=== PATIENT | female | born 1935 | race Caucasian/White ===

== ENCOUNTER 2019-08-10 08:00 | Outpatient (CLI) | payer MEDICARE, OTHER, SELFPAY | END 2019-08-10 08:01 | disposition home or self-care (01) | PROVIDERS: Family Provider Family Medicine; PCP Family Medicine; Visit Provider Internal Medicine Cardiovascular Disease | DX: Z01.818 Encounter for other preprocedural examination (principal) | CPT/HCPCS: 93005 ==

== ENCOUNTER 2019-08-22 16:48 | Observation (INO) | payer MEDICARE, OTHER, SELFPAY ==
[2019-08-10 14:34] VITALS: BMI 34.2
--- NOTE | 2019-08-10 14:34 | ECG_ITS ---
Measurements Intervals [place] Rate: 75 P: 70 FL: 177 QRS: 66 QRSD: 95 T: 94 QT: 390 QTc: 436 SINUS RHYTHM LOW QRS VOLTAGE IN PRECORDIAL LEADS [QRS DEFLECTION < 1.0 mV IN CHEST LEADS] Compared to ECG 04/26/2019 12:46:18 Myocardial infarct finding no longer present Electronically Signed On 08-11-2019 15:35:49 MASTER SONAR TECHNICIAN by Eddie Carballo M.D. [id number]
--- NOTE | 2019-08-10 15:18 | ANES.PREANES ---
Pre-Anesthetic Assessment Pre-Anesthetic Assessment: Height/Weight: Height 1.73 m Weight 102.058 kg Preop Diagnosis: Left TKA Proposed Procedure: Operation Date: 08/21/19 07:00 Proposed Procedures p Total Knee Arthroplasty 26398 M17.0(Left) - Tim Jama MD Exam: Pre-Anes Outpt Exam: alert and oriented x 3 Airway: Dentition: False Additional comments: bottom partials top multipe caps/crowns CV/HEM: CV/HEM: Afib and HTN Comments: rx'd 18months stress test 08/06 negative < 2 blocks secondary knee Anesthetic Plan: ASA status: III Anesthesia: General and Regional (specify below) Other: left adductor knee Data Anesthesia Cardiac Studies: No Data to Display
[2019-08-21] VITALS (22 sets, daily range): BP systolic 121–162; BP diastolic 69–120; PULSE 70–92; RESP 15–20; TEMP 36.1–37.1; O2SAT 94–100
[2019-08-21] MEDS: sodium chloride 0.9% 1,000 ML 30 ML IV (05:56)
[2019-08-21] MEDS: midazolam 1 mg/mL INJ 5 ML 5 MG (06:50)
[2019-08-21] MEDS: fentaNYL 50 mcg/mL INJ 2mL 100 MCG IVP (06:51)
--- NOTE | 2019-08-21 06:54 | PM.HP ---
Providers/Chief Complaint Primary Care Provider: Zenaida Spencer DO Chief Complaint: Primary Osteoarthritis of bilateral knee History of Present Illness Daily Barreto is a 84 year old female with a history of osteoarthritis of both knees. She did well after right total knee arthroplasty and is now here for elective left total knee arthroplasty. 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 She describes holding objects as she walks about the kitchen for balance. She has failed injections and medications. She describes the pain is severe and limiting daily activities. She is here for elective left total knee arthroplasty Review of Systems General: Reports: 10 or more systems reviewed and unremarkable except in HPI and below Medications/Allergies Home Medications Medication Instructions Recorded Confirmed Last Taken Type apixaban 5 mg PO BID 08/10/19 08/21/19 08/15/19 History calcium citrate-vitamin D3 1 tab PO TID 08/10/19 08/21/19 1 Day Ago History [Calcium Citrate + D] ~08/20/19 cinnamon bark [Cinnamon] 500 mg PO DAILY 08/10/19 08/21/19 08/20/19 History lisinopril 5 mg PO DAILY 08/10/19 08/21/19 08/21/19 02:00 History metoprolol succinate 25 mg PO DAILY 08/10/19 08/21/19 08/21/19 02:00 History Allergies Allergy/AdvReac Type Severity Reaction Status Date / Time No Known Allergies Allergy Verified 08/10/19 14:10 PFSH Acute PFSH: Statuses (acute, chronic, etc) shown below reflect problem list status as previously entered and may not be historically accurate Surgical History (Updated 08/21/19 @ 06:58 by Tim Jama MD) History of right knee joint replacement (Acute) Vitals/I&O/Wt Last Vital Signs Temp 97.4 F L 08/21/19 05:54 Pulse 84 08/21/19 05:54 Resp 18 08/21/19 05:54 BP 136/83 08/21/19 05:54 Pulse Ox 98 08/21/19 05:54 Physical Exam Narrative: EXAM NARRATIVE: HEAD: Normocephalic/atraumatic. NECK: Soft supple nontender. HEART: Normal heart sounds, regular rhythm. CHEST: Clear to auscultation. ABDOMEN: Soft nontender nondistended. On examination of the patient's left knee her motion is from full extension to 100 degrees. She has crepitance beneath the patella. Her cruciate collateral ligaments are stable. She is a palpable dorsalis pedis pulse. She will flex and sent her toes and her ankle. Her sensation is intact light touch. Data Xray Ortho: Radiologist's impression: Previous radiographs of the left knee are reviewed revealing severe end-stage osteoarthritis left knee A&P Assessment and plan (1) Osteoarthritis of left knee: Patient has been previously counseled and agrees to proceed with left total knee arthroplasty. She will be given TXA intraoperatively and preoperatively. She will be managed with aspirin for DVT prophylaxis. She will be admitted outpatient status and anticipate discharge home tomorrow or the following day. Status: Acute Code(s): M17.12 - Unilateral primary osteoarthritis, left knee Attestations Medical Necessity Statement*: The patient will be admitted observation status with discharge tomorrow unless further stay medically necessary Coding Level of Care Code Acute Marble Installation Helper for Zohra Hillman Diagnoses Osteoarthritis of left knee M17.12
--- NOTE | 2019-08-21 07:37 | ANES.PROC ---
Anesthesia Procedures Procedure/Date: 08/21/19 Procedure Narrative: R&B's of left adductor canal block disc'd. Verbal and written consent obtained. Versed 2+1mg, Fentanyl 50ug. US utilized to identify left adductor canal space, ARTHUR.
[2019-08-21] MEDS: ketorolac 30 mg/mL INJ XX (08:05)
[2019-08-21] MEDS: EPINEPHrine 1 mg/mL INJ XX (08:05)
[2019-08-21] MEDS: tranexamic acid 1,000 mg/10mL SDV 2000 MG IRRIGATION (08:08)
--- NOTE | 2019-08-21 08:21 | SUR.OPER ---
[id number] - Pt's family - Marcela - notified of surgery start via her cell phone [id number] - Marcela updated on surgery progress and pt status via her cell phone.
--- NOTE | 2019-08-21 08:41 | XR_ITS ---
WS: [id number] KNEE LEFT TECHNIQUE: 2 views of the left knee CLINICAL INFORMATION: postop L tka COMPARISON: June 20, 2019 FINDINGS: Postoperative changes left TKA. Patellar prosthesis. Surgical sutures. Soft tissue edema. Normal for postoperative purposes. XR/XR knee LT 1-2V [id number] IMPRESSION: Unremarkable for postoperative purposes.
--- NOTE | 2019-08-21 08:42 | P.OP_ITS ---
Operative Report Date of procedure: August 21, 2019 Pre-op Diagnosis: osteoarthritis Post-op diagnosis: same Implants: [place] total knee arthroplasty components were used includin) Size 4 triathalon cruciate retaining femoral component 2) Size 5 Tritanium tibial component 3) 35 mm Tritanium asymetric patella 4) Size 5/11 mm thickness CR tibial bearing insert Pathology: none sent Surgeon: Tim Jama Anesthesia: General and Nerve Block (adductor canal block) Estimated blood loss (mL): 50 Tourniquet time (min): 34 Complications: None Findings: Patient had eburnated exposed subchondral bone over the medial femoral condyle, medial tibial plateau, patella and troches Condition: stable Disposition: PACU Brief History: See history and physical Procedure: The patient was taken to the operating room. Patient was given 1 g of tranexamic acid . The above anesthesia provided by the anesthesia service. A timeout was performed. The patient was prepped and draped in the usual fashion with the lower extremity exposed. A anterior incision was made, midline, from a point proximal to the patella to the distal tibial tubercle. Dissection was accomplished through the subcutaneous fat to the extensor mechanism. The vastus medialis oblique is musculature was elevated with a retractor and a capsular incision made from the medial patella along the patellar tendon up into the superior capsule. The patella could be displaced laterally and the knee flexed. The patellar fat pad was resected to provide better visibility. Retractors were placed medially and laterally adjacent to the tibial plateau. The femoral canal was drilled in line with the longitudinal axis of the femur. Intramedullary femoral guide for used to make a distal femoral cut in 5 degrees of valgus, resecting 8 mm from the more prominent condyle. Next the extra medullary tibial guide was placed in alignment with the longitudinal axis of the tibia. The cutting guides were set to remove just over 9 mm from the high tibial plateau. The proximal tibia was then cut. The femoral measuring guide was then placed over the distal femur. Rotation was verified checking the relationship of the guide to the condyle and the trochlear groove. The femur was measured and cut for the desired femoral component. The desired tibial baseplate was then chosen. A trial reduction with the femur tibial baseplate and polyethylene was done, assuring that the knee was stable throughout full motion. Ligament balancing involved release only of the deep medial collateral ligament.The tibia was prepared for the tibial baseplate. Patellar thickness was then measured. The patella was cut removing articular cartilage and prepared for appropriate size patellar button. All surfaces were cleaned with pulsatile lavage. The femur tibia and patella were then press-fit into place. The posterior capsule and collateral ligaments were then injected with a solution of 100 mL of 0.2% ropivacaine, 1 mL of a 1:1000 epinephrine solution, and 30 mg of Toradol. Final polyethylene component was then snapped into place into the tibia. 2 grams of tranexamic acid were applied to the wound. The tourniquet was deflated. The tranxanemic acid was left contact with the knee for 5 minutes before the knee was irrigated with saline. The extensor retinaculum was closed with 1 Ethibond. The subcutaneous tissues were closed with 2-0 Vicryl and the skin was closed with skin param. A compressive dressing was applied. The patient was taken to recovery room in stable condition.
--- NOTE | 2019-08-21 08:49 | SUR.PHASEI ---
0852 PATIENT TO PACU AT THIS TIME FROM OR VIA [facility]. RR EVEN AND UNLABORED. PLACED ON SIMPLE MASK AT 8L, SPO2 100%. DRESSING TO LEFT KNEE, CDI. PULSE PRESENT AND MARKED. CAP REFILL INTACT. PATIENT RESPONDS TO VERBAL STIMULI.
--- NOTE | 2019-08-21 08:50 | SUR.PHASEI ---
[address] XRAY PRESENT.
[2019-08-21] MEDS: fentaNYL 50 mcg/mL INJ 2mL IVP (09:10)
--- NOTE | 2019-08-21 09:41 | SUR.PHASEI ---
0928 PATIENT TO MED SURG, 269. A/OX3. RR EVEN AND UNLABORED. PWD. DRESSING INTACT TO LEFT KNEE, CDI. PULSE PRESENT, FIRST ICE IN PLACE.
[2019-08-21] MEDS: sennosides-docusate Tablet 2 TAB PO ×2 (10:44→18:26)
[2019-08-21] MEDS: cholecalciferol (vitamin D3) 1,000 unit Tablet 1000 UNIT PO (10:44)
[2019-08-21] MEDS: aspirin 325 mg EC Tablet PO (10:44)
[2019-08-21] MEDS: oxyCODONE 5 mg IR Tab/Cap PO (10:45)
[2019-08-21] MEDS: multivitamin therapeutic Tablet 1 TAB PO (10:45)
[2019-08-21] MEDS: calcium carbonate 500 mg Chew Tablet 1000 MG PO ×2 (10:46→18:26)
[2019-08-21] MEDS: chlorhexidine gluconate 0.12% Btl 473 mL 30 ML MUCOUS MEM ×4 (10:46→22:19)
--- NOTE | 2019-08-21 10:49 | PC.NURSE ---
Lisinopril and metoprolol held at this time. Pt reports taking both before surgery this morning per dr order.
[2019-08-21 11:04] LABS: Glucose Point of Care 236 mg/dL (70-110)
[2019-08-21] MEDS: CELEcoxib 200 mg Capsule PO (12:35)
--- NOTE | 2019-08-21 12:55 | PC.CHAP ---
Pastoral Care Encounter/Spiritual Assessment Type of Contact [] Declined insurance solicitor visit [] Patient/Family/Request visit [] Outpatient visit [] Follow-up visit [] Physician referral [] Code/Alert [x] Routine visit [] Staff referral [] Actively dying [] Patient sleeping [] Family support [] [] Out of room [] Palliative care [] [] Receiving care in room [] Pre-surgical visit [] Trauma [] Long length of stay [] ICU visit [] Other: Relational/Emotional Strength [x] Patient feels connected with others/family/visitors/staff [] Distress [] Loneliness/isolation [] Abandonment Spirituality of Patient [x] Person of Cyndi [] Attends Mormon of their Cyndi [x] Believes in Prayer [x] Reads Bible or Adventist materials [] There are Spiritual issues to be addressed Ceramic Chemist Interventions [x] Prayer [x] Active listening [x] Non-anxious presence [x] Spiritual/emotional support [] Crisis/trauma care [] Spiritual counseling [] Bereavement support [] Provided bereavement packet [] Provided Bible/devotional materials [] Provided toy/stuffed animal, coloring book to patient or family member [] Provided Communion [] Anointing/[place] [] Salvation [x] Completed spiritual assessment [] Other: Impact on Illness or Injury [] Angry [] Fearful [] Anxious [] Often cries [] Exhaustion [] Unable to work [] Unable to attend voodoo [] Unable to walk/stand [] Unable to read [] Unable to drive [] Unable to eat/drink [] Unable to sleep [] Unable to be with family [] Patient intubated [x] Other: Pt is senior adult who is no longer physically active Summary Pt recovering from knee surgery conducted this morning. This 2nd knee surgery hurts much worse that the 1st knee surgery done in May 2019 on other knee. Daughter is present to help in whatever way pt needs. Ceramic Chemist Daily Parrish Time spent with patient 20 minutes
[2019-08-21] MEDS: iron polysaccharide complex 150 mg Capsule PO (18:25)
[2019-08-22] MEDS: CELEcoxib 200 mg Capsule PO ×2 (02:02→13:19)
[2019-08-22 05:00] VITALS: BP 123/72; PULSE 97; RESP 17; TEMP 36.8; O2SAT 90
[2019-08-22 05:17] LABS: Basophils % 0.4 %; Eosinophils # 0.1 10^3/uL (0.0-0.8); Eosinophils % 1.2 %; Hematocrit 37.3 % (37.0-47.0); Hemoglobin 12.1 g/dL (11.5-15.3); Lymphocytes # 1.2 10^3/uL (0.8-4.8); Lymphocytes % 16.4 %; Mean Corpuscular HGB Conc 32.4 g/dL (30.0-36.0); Mean Corpuscular Hemoglobin 28.7 pg (28.0-34.0); Mean Corpuscular Volume 88.6 fL (81-99); Mean Platelet Volume 9.7 fL (7.4-10.4); Monocytes # 0.7 10^3/uL (0.2-0.9); Monocytes % 9.5 %; Neutrophils # 5.4 10^3/uL (1.8-7.7); Nucleated Red Blood Cells % 0 %; Platelet Count 207 10^3/cmm (130-400); Red Blood Count 4.21 10^6/uL (4.1-5.3); Red Cell Distribution Width 13.7 % (12.1-15.1); White Blood Count 7.5 10^3/uL (4.0-10.0)
[2019-08-22 05:34] LABS: Anion Gap 18.5 (5-19); Blood Urea Nitrogen 20 mg/dL (8-23); Calcium 9.6 mg/dL (8.5-10.5); Carbon Dioxide 20 mmol/L (22-29); Chloride 102 mmol/L (98-107); Glucose 215 mg/dL (74-106); Osmolality Calculated 285 mOsm/kg (285-295); Potassium 4.5 mmol/L (3.5-5.1); Sodium 136 mmol/L (136-145)
[2019-08-22 07:54] VITALS: BP 136/76; PULSE 101; RESP 16; TEMP 37.7; O2SAT 93
[2019-08-22] MEDS: iron polysaccharide complex 150 mg Capsule PO (08:40)
[2019-08-22] MEDS: metoprolol succinate ER (24 HR) 25 mg Tablet PO (08:40)
[2019-08-22] MEDS: calcium carbonate 500 mg Chew Tablet 1000 MG PO (08:40)
[2019-08-22] MEDS: multivitamin therapeutic Tablet 1 TAB PO (08:40)
[2019-08-22 08:41] VITALS: RESP 18
[2019-08-22] MEDS: aspirin 325 mg EC Tablet PO (08:41)
[2019-08-22] MEDS: oxyCODONE 5 mg IR Tab/Cap PO ×3 (08:41→17:07)
[2019-08-22] MEDS: sennosides-docusate Tablet 2 TAB PO (08:41)
[2019-08-22] MEDS: lisinopril 5 mg Tablet PO (08:41)
[2019-08-22] MEDS: cholecalciferol (vitamin D3) 1,000 unit Tablet 1000 UNIT PO (08:41)
--- NOTE | 2019-08-22 09:33 | P.DS_ITS ---
Discharge Providers Date of Admission: 08/21/19 08:57 Date of Discharge: Date of Discharge: August 22, 2019 Attending Provider at Admission: Tim Jama MD Attending Provider at Discharge: Tim Jama MD Primary Care Provider: Zenaida Spencer DO Diagnoses at Discharge Discharge Diagnosis (1) Osteoarthritis of left knee: Status: Resolved (2) Status post knee replacement: Status: Acute Reason for Visit Reason for Visit: Reason For Visit: Primary Osteoarthritis of bilateral knee Hospital Course Hospital Course: Patient underwent elective left total knee arthroplasty on 08/21/2019. She tolerated the procedure well. She remained hemodynamically stable. She was begun on aspirin and maintained on foot pumps for DVT prophylaxis. She made excellent progress with therapy. By the first postoperative day her pain was tolerable with oxycodone. she did well with therapy and was thought stable for discharge on 08/22/2019.. Physical Exam Narrative: EXAM NARRATIVE: On the day of discharge, 08/22/2019 her dressing was clean and her thigh and calf were soft. Urinary Catheter Management^: Carranza: Cath Placed During This Visit: no Discharge Data Data Completed and Pending: Completed Studies During Hospitalization Category Date Time Status XR knee LT 1-2V 7 3560 Routine Exams 08/21/19 08:41 Completed Pending at discharge Category Date Time Status Complete Blood Co unt w/Auto AM LABS Lab 08/23/19 04:00 Ordered Complete Blood Co unt w/Auto AM LABS Lab 08/24/19 04:00 Ordered Labs from last 24 hours 08/22/19 08/22/19 08/21/19 04:10 04:10 11:00 WBC 7.5 RBC 4.21 Hgb 12.1 Hct 37.3 MCV 88.6 MCH 28.7 MCHC 32.4 RDW 13.7 Plt Count 207 MPV 9.7 Neut % (Auto) 72.0 Lymph % (Auto) 16.4 [place] % (Auto) 9.5 Eos % (Auto) 1.2 Baso % (Auto) 0.4 Neut # (Auto) 5.4 Lymph # (Auto) 1.2 [place] # (Auto) 0.7 Eos # (Auto) 0.1 Baso # (Auto) 0.0 Nucleated RBC % (a uto) 0 Nucleated RBCs # 0.0 Sodium 136 Potassium 4.5 Chloride 102 Carbon Dioxide 20 L Anion Gap 18.5 BUN 20 Creatinine 1.0 H Glucose 215 H POC Glucose 236 Calculated Osmolal ity 285 Calcium 9.6 Vitals: Last Vital Signs Temp 99.8 F H 08/22/19 07:54 Pulse 101 H 08/22/19 07:54 Resp 18 08/22/19 08:41 BP 136/76 08/22/19 07:54 Pulse Ox 93 08/22/19 07:54 Discharge Plan Discharge Patient Disposition: Home, Self-Care Condition: Stable Prescriptions: New oxycodone 5 mg Tablet 5 mg PO Q4H PRN (Reason: Moderate Pain) Qty: 40 RF: 0 celecoxib 200 mg Capsule 200 mg PO Q12H Qty: 30 RF: 0 aspirin 325 mg Tablet,Delayed Release (Dr/Ec) 325 mg PO DAILY Qty: 30 RF: 0 Held apixaban 5 mg Tablet 5 mg PO BID RF: 0 Hold Instructions: Resume on 09/04/19. No Action mupirocin 2 % ointment 1 applic TOPICAL BID Qty: 30 RF: 0 lisinopril 5 mg Tablet 5 mg PO DAILY RF: 0 calcium citrate-vitamin D3 [Calcium Citrate + D] 315-200 mg-unit Tablet 1 tab PO TID RF: 0 cinnamon bark [Cinnamon] 500 mg Capsule 500 mg PO DAILY RF: 0 metoprolol succinate 25 mg Capsule,Sprinkle,Er 24hr 25 mg PO DAILY RF: 0 Discharge Orders: Discharge Order (Routine); Ordered 08/22/19 Ordered By: Tim Jama Referrals: Tim Jama MD [Physician] - 09/04/19 1:30 pm Discharge Diet: Advance as tolerated Discharge Activity: Use walker/crutches as instructed Activity Restrictions/Additional Instructions: Remove dressing on second postoperative day and replace with dressing provided. May shower once incisions completely free of drainage. Replaced dressings as needed for drainage.. Take Celebrex twice a day for the next 15 days, discontinue other anti- inflammatories Take oxycodone for breakthrough pain. Exercises per physical therapy. Ice and elevate knees as needed for pain and swelling.. Discharge Attestations Time Spent in Discharge Care*: other Quality Metrics Clinical Quality Measures During this hospital stay, did patient experience: None Coding Level of Care Code Acute Layout Artist for Zohra Hillman Diagnoses Osteoarthritis of left knee M17.12 Status post knee replacement Z96.659
--- NOTE | 2019-08-22 10:11 | ANE.PACU2 ---
 Inpatient post-anesthesia follow up: Airway intact: Yes Vital signs: Temperature 99.8 F Pulse Rate 101 Respiratory Rate 18 Blood Pressure 136/76 Pulse Oximetry 93 Oxygen Delivery Me thod Room Air Oxygen Flow Rate 3 Fraction of Inspir ed Oxygen Hydration adequate: Yes Nausea and vomiting: No Pain level: 10 Mental status: Baseline Additional Comments: Nerve block worked well per patient, unfortunately has worn off now
[2019-08-22 11:46] VITALS: BP 135/74; PULSE 85; RESP 16; TEMP 36.8; O2SAT 93
[2019-08-22 13:18] VITALS: RESP 18
[2019-08-22] MEDS: chlorhexidine gluconate 0.12% Btl 473 mL 30 ML MUCOUS MEM (13:18)
[2019-08-22 17:07] VITALS: RESP 18
== END 2019-08-22 19:00 | disposition home health service (06) ==
LOC: OPMS 08-23 08:08
PROVIDERS: Admitting Provider Orthopaedic Surgery; Family Provider Family Medicine; PCP Family Medicine; Visit Provider Orthopaedic Surgery
PROC: (CPT 27447; principal; 2019-08-21 07:00)
DX: M17.12 Unilateral primary osteoarthritis, left knee (principal); Z96.651 Presence of right artificial knee joint; I48.91 Unspecified atrial fibrillation; I10 Essential (primary) hypertension
CPT/HCPCS: 27447; 12345; 36416; 51702; 73560; 80048; 82962; 85025; 93005; 96365; 96374; 96375; 97110; 97116; 97161; 97165; 97535; C1776; G0378; J0171; J0690; J1580; J1885; J2001; J2250; J2405; J2704; J2710; J2795; J3010; J3490; J7030

== ENCOUNTER → 2019-10-02 14:57 | Outpatient (BNVA) | payer MEDICARE, OTHER, SELFPAY | PROVIDERS: Family Provider Family Medicine; PCP Family Medicine; Visit Provider Orthopaedic Surgery | DX: Z96.652 Presence of left artificial knee joint (principal) | CPT/HCPCS: 73560; 73565 ==

== ENCOUNTER 2020-05-23 15:27 | Inpatient (IN) | payer MEDICARE, OTHER, SELFPAY ==
[2020-05-23] VITALS (11 sets, daily range): BP systolic 100–115; BP diastolic 68–93; PULSE 52–129; RESP 18–26; TEMP 36.7–37.1; O2SAT 91–96; BMI 35.1
--- NOTE | 2020-05-23 15:39 | XR_ITS ---
WS: [id number] XR chest 1V portable [id number] REASON FOR EXAM: SOB FINDINGS: The chest is unchanged compared to 04/26/2019. There is mild cardiomegaly and mild to moderate tortuosity of the thoracic aorta. No active pulmonary parenchymal or pleural disease is identified. Mild changes of degenerative spondylosis in the mid and lower thoracic spine. XR/XR chest 1V portable [id number] IMPRESSION: No acute chest abnormality identified.
--- NOTE | 2020-05-23 15:39 | ECG_ITS ---
[facility] Test Date: 2020-05-23 Pat Name: Daily Barreto Department: Room: Gender: Female Non Morse Intercept Technician: : 1935 Requested By: Lynne Monroe Order Number: [id number] Reading MD: HARINDER DANIELS Measurements Intervals [place] Rate: 130 P: AR: -1 QRS: 48 QRSD: 88 T: 85 QT: 308 QTc: 454 Interpretive Statements ATRIAL FIBRILLATION WITH RAPID VENTRICULAR RESPONSE WITH ABERRANT CONDUCTION OR VENTRICULAR PREMATURE COMPLEXES ANTEROSEPTAL MYOCARDIAL INFARCTION , OF INDETERMINATE AGE [40+ ms Q WAVE IN V1-V4] Compared to ECG 08/10/2019 15:32:49 Ventricular premature complex(es) now present Aberrant conduction of supraventricular beat(s) now present Myocardial infarct finding now present Sinus rhythm no longer present Electronically Signed On 05-24-2020 19:29:39 DINING SERVICES MANAGER by HARINDER DANIELS [id number]
[2020-05-23 16:13] LABS: Basophils % 0.4 %; Eosinophils # 0.2 10^3/uL (0.0-0.8); Hematocrit 42.8 % (37.0-47.0); Hemoglobin 13.8 g/dL (11.5-15.3); Lymphocytes # 2.4 10^3/uL (0.8-4.8); Lymphocytes % 24.7 %; Mean Corpuscular HGB Conc 32.2 g/dL (30.0-36.0); Mean Corpuscular Hemoglobin 28.6 pg (28.0-34.0); Mean Corpuscular Volume 88.6 fL (81-99); Mean Platelet Volume 9.1 fL (7.4-10.4); Monocytes # 0.6 10^3/uL (0.2-0.9); Monocytes % 6.3 %; Neutrophils # 6.37 10^3/uL (1.8-7.7); Neutrophils % 65.5 %; Nucleated Red Blood Cells % 0 %; Platelet Count 350 10^3/cmm (130-400); Red Blood Count 4.83 10^6/uL (4.1-5.3); Red Cell Distribution Width 13.3 % (12.1-15.1); White Blood Count 9.7 10^3/uL (4.0-10.0)
--- NOTE | 2020-05-23 16:22 | ED_ITS ---
Documented by User: Lynne Rivas MD 06/02/20 17:08 HPI - SOB/Dyspnea General: Chief Complaint: Shortness of Breath/Dyspnea Stated Complaint: SOB Time Seen by Provider: 05/23/20 15:31 History of Present Illness: HPI Narrative: This patient is an 85-year-old female who presents today with shortness of breath and difficulty walking. Her daughter says that this started on Wednesday. [place] early in the morning and the patient was so dizzy and weak that she was unable to stand. Her daughter took her to Dr. Spencer office where they brought her in and checked her pulse ox. It was in the 70s. They sent her to the ER at [facility] in [place]. There her oxygen saturation was in the 90s at rest. She had testing done including a Covid test that was negative. They said they thought her problem was cardiopulmonary and that she had a cardiomyopathy. She did not have A. fib at the time according to her daughter. Apparently she had had A. fib in the past but not consistently. The patient normally is very active. She had her knees replaced earlier this year but since then she has been up and walking without difficulty. Her daughter notes that she is really unable to get up and ambulate at all right now. Part of that is shortness of breath and part of it is weakness in her legs. She denies chest pain. She does not feel like her heart is racing although it is on the monitor. She has not had fever or cough. No vomiting or diarrhea. MD elicited complaint: shortness of breath Pertinent past history: other (Paroxysmal A. fib in the past) Onset (ago): day(s) (3) Timing: constant Severity: severe Exacerbating factors: exertion, movement and talking Relieving factors: oxygen and rest Associated symptoms: Reports dizziness and lightheadedness; Deny abdominal pain, fever(s), nausea or vomiting Review of Systems General: Reports: 10 or more systems reviewed and unremarkable except in HPI and below Const: Denies: fever(s), chills, fatigue or malaise Eyes: Denies: change in vision ENMT: Denies: odynophagia Card: Reports: lightheadedness Resp: Reports: dyspnea; Denies: productive cough or non-productive cough GI: Denies: abdominal pain, nausea or vomiting : Denies: flank pain or difficulty voiding Musc: Denies: neck pain or back pain Skin/Breast: Denies: rash Neuro: Reports: difficulty walking and dizziness Jet/Lymph: Denies: easy bruising or easy bleeding [facility] ED PFSH: Medical History (Updated 05/31/20 @ 00:00 by ) Atrial fibrillation with RVR Atrial flutter with rapid ventricular response -continue digoxin, metoprolol, amiodarone -f/u with cardiology in 3-4 weeks -on AC with Eliquis CHF (congestive heart failure) -clinically euvolemic -Echo: EF=55%, no RWMA, mild MR, trace to mild TR CVA (cerebral vascular accident) 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 Generalized weakness -secondary to infection and CVA -has been improving with therapy High blood pressure History of atrial fibrillation History of vaginal delivery Hx of non-insulin dependent diabetes mellitus -A1c-7.8 -d/c on metformin Hx of urinary tract infection NSTEMI (non-ST elevated myocardial infarction) Surgical History H/O total knee replacement History of right knee joint replacement Hx of cholecystectomy Family History Mother Diabetes Father CHF (congestive heart failure) Social History Smoking and tobacco status: never smoked Alcohol intake: never Physical Exam Const: COMMON NORMALS: no acute distress, patient oriented x3, no limitations and alert GENERAL APPEARANCE: cooperative and comfortable ORIENTATION/CO NSCIOUSNESS: Yes oriented to person, Yes oriented to place and Yes oriented to time HENMT: HEAD & SCALP: normal to inspection FACE & SINUS: normal facial exam Eye: GENERAL EYE: appearance normal, both eyes and all related structures Neck/C-Spine: COMMON NORMALS: supple, no meningeal signs and no JVD Chest: COMMONS NORMALS: normal inspection of the chest Resp: COMMON NORMALS: normal respiratory effort, No use of accessory muscles and clear to auscultation bilaterally AUSCULTATION: clear to auscultation bilaterally Cardio: COMMON NORMALS: no JVD, regular rate, regular rhythm and No murmurs present (Cardio) RATE: regular rate RHYTHM: regular rhythm GI: COMMON NORMALS: Normal to inspection, nondistended, normoactive bowel sounds present, Soft to palpation and non-tender INSPECTION: Yes normal to inspection AUSCULTATION: Yes normoactive bowel sounds PALPATION: Yes Soft to palpation Back/Pelvis: COMMON NORMALS: thoracic and lumbar spine normal to inspection Extremity: COMMON NORMALS: normal to inspection Neuro: COMMON NORMALS: patient oriented x3, moves all extremities, no focal motor deficits and no sensory deficits noted SENSORIUM/ORIENTATION: Yes alert, Yes oriented to person, Yes oriented to place and Yes oriented to time MENINGEAL SIGNS: Yes no meningeal signs CRANIAL NERVES: Yes CN normal except as noted GAIT: Yes Shuffling gait present (Assisted getting the patient from the wheelchair to the bed and she was able to take only 1 or 2 very halting and slow steps.) Psych: COMMON NORMALS: mental status grossly normal, cooperative and normal affect Skin: COMMON NORMALS: no rashes or lesions noted and turgor normal GENERAL SKIN EXAM: no rashes or lesions noted and turgor normal Course Vital Signs: Vital signs: Vital Signs Temperature 98.1 F 05/30/20 12:42 Pulse Rate 111 H 05/30/20 12:42 Respiratory Rate 16 05/30/20 12:42 Blood Pressure 114/77 05/30/20 12:42 Pulse Oximetry 91 05/30/20 12:42 MDM - SOB/Dyspnea Lab Data: Labs: Lab Results 05/23/20 05/23/20 05/23/20 Range/Units 16:05 16:05 16:05 WBC 9.7 (4.0-10.0) 10^3/ uL RBC 4.83 (4.1-5.3) 10^6/u L Hgb 13.8 (11.5-15.3) g/dL Hct 42.8 (37.0-47.0) % MCV 88.6 (81-99) fL MCH 28.6 (28.0-34.0) pg MCHC 32.2 (30.0-36.0) g/dL RDW 13.3 (12.1-15.1) % Plt Count 350 (130-400) 10^3/c mm MPV 9.1 (7.4-10.4) fL Neut % (Auto) 65.5 % Lymph % (Auto) 24.7 % [place] % (Auto) 6.3 % Eos % (Auto) 2.0 % Baso % (Auto) 0.4 % Neut # (Auto) 6.37 (1.8-7.7) 10^3/u L Lymph # (Auto) 2.4 (0.8-4.8) 10^3/u L [place] # (Auto) 0.6 (0.2-0.9) 10^3/u L Eos # (Auto) 0.2 (0.0-0.8) 10^3/u L Baso # (Auto) 0.0 (0.0-0.1) 10^3/u L Nucleated RBC % (a uto) 0 % Nucleated RBCs # 0.0 /100WBC Sodium 135 L (136-145) mmol/L Potassium 4.0 (3.5-5.1) mmol/L Chloride 98 (98-107) mmol/L Carbon Dioxide 23 (22-29) mmol/L Anion Gap 18.0 (5-19) BUN 20 (8-23) mg/dL Creatinine 1.1 H (0.5-0.9) mg/dL GFR Calculation Not Reportable Glucose 288 H (65-115) mg/dL Calculated Osmolal ity 293 (285-295) mOsm/k g Lactic Acid 2.9 H (0.5-2.2) mmol/L Calcium 9.3 (8.5-10.5) mg/dL Magnesium 1.8 (1.7-2.3) mg/dL Total Bilirubin 0.2 (0.15-1.2) mg/dL AST 16 (0-32) U/L ALT 14 (0-33) U/L Alkaline Phosphata se 89 (35-105) IU/L Troponin T Baselin e (0-10) ng/L NT-Pro-B Natriuret Pep 3320 H (0-450) pg/mL Total Protein 6.6 (6.6-8.7) g/dL Albumin 3.6 (3.5-5.2) g/dL Globulin 3.0 (1.3-4.6) g/dL Procalcitonin 0.12 (0-0.5) ng/mL 05/23/ Range/Units 16:05 WBC (4.0-10.0) 10^3/ uL RBC (4.1-5.3) 10^6/u L Hgb (11.5-15.3) g/dL Hct (37.0-47.0) % MCV (81-99) fL MCH (28.0-34.0) pg MCHC (30.0-36.0) g/dL RDW (12.1-15.1) % Plt Count (130-400) 10^3/c mm MPV (7.4-10.4) fL Neut % (Auto) % Lymph % (Auto) % [place] % (Auto) % Eos % (Auto) % Baso % (Auto) % Neut # (Auto) (1.8-7.7) 10^3/u L Lymph # (Auto) (0.8-4.8) 10^3/u L [place] # (Auto) (0.2-0.9) 10^3/u L Eos # (Auto) (0.0-0.8) 10^3/u L Baso # (Auto) (0.0-0.1) 10^3/u L Nucleated RBC % (a uto) % Nucleated RBCs # /100WBC Sodium (136-145) mmol/L Potassium (3.5-5.1) mmol/L Chloride (98-107) mmol/L Carbon Dioxide (22-29) mmol/L Anion Gap (5-19) BUN (8-23) mg/dL Creatinine (0.5-0.9) mg/dL GFR Calculation Glucose (65-115) mg/dL Calculated Osmolal ity (285-295) mOsm/k g Lactic Acid (0.5-2.2) mmol/L Calcium (8.5-10.5) mg/dL Magnesium (1.7-2.3) mg/dL Total Bilirubin (0.15-1.2) mg/dL AST (0-32) U/L ALT (0-33) U/L Alkaline Phosphata se (35-105) IU/L Troponin T Baselin e 27 H (0-10) ng/L NT-Pro-B Natriuret Pep (0-450) pg/mL Total Protein (6.6-8.7) g/dL Albumin (3.5-5.2) g/dL Globulin (1.3-4.6) g/dL Procalcitonin (0-0.5) ng/mL Discharge Plan Discharge Patient Disposition: Admitted As Inpatient Admit Provider: Sd Roblero Clinical Impression: Atrial fibrillation with RVR Condition: Stable Discharge Diet: Cardiac and Diabetic Discharge Activity: Increase activity as tolerated and As per PT/OT instructions Sign Out Sign Out Data: Patient Sign Out occurred on 05/23/20 at 18:25. Patient's care was discussed, and care was transferred from to Nicki Burrows. Coding Level of Care Code ED Transmitter Engineer for Chg Fwd Exam Comprehensive Documented by User: Nicki Burrows 05/23/20 19:25 HPI - SOB/Dyspnea General: Chief Complaint: Shortness of Breath/Dyspnea Stated Complaint: SOB Time Seen by Provider: 05/23/20 15:31 PFSH ED PFSH: Medical History (Updated 05/31/20 @ 00:00 by ) Atrial fibrillation with RVR Atrial flutter with rapid ventricular response -continue digoxin, metoprolol, amiodarone -f/u with cardiology in 3-4 weeks -on AC with Eliquis CHF (congestive heart failure) -clinically euvolemic -Echo: EF=55%, no RWMA, mild MR, trace to mild TR CVA (cerebral vascular accident) 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 Generalized weakness -secondary to infection and CVA -has been improving with therapy High blood pressure History of atrial fibrillation History of vaginal delivery Hx of non-insulin dependent diabetes mellitus -A1c-7.8 -d/c on metformin Hx of urinary tract infection NSTEMI (non-ST elevated myocardial infarction) Surgical History H/O total knee replacement History of right knee joint replacement Hx of cholecystectomy Family History Mother Diabetes Father CHF (congestive heart failure) Social History Smoking and tobacco status: never smoked Alcohol intake: never Course Vital Signs: Vital signs: Vital Signs Temperature 98.1 F 05/30/20 12:42 Pulse Rate 111 H 05/30/20 12:42 Respiratory Rate 16 05/30/20 12:42 Blood Pressure 114/77 05/30/20 12:42 Pulse Oximetry 91 05/30/20 12:42 MDM - SOB/Dyspnea MDM Narrative: Medical decision making narrative: 1921 -Case turned over to me at change of shift from Dr. Rivas. Please see her note for history, physical exam and medical decision-making notes. Patient is still in A. fib with RVR despite being on a Cardizem drip. She does not complain of chest pain or shortness of breath at this time. The patient still has generalized weakness and is unable to get up and walk. Patient's lactate is slightly elevated so I have added on a urine as there does not appear to be any evidence of pneumonia on her chest x-ray. Patient's had 2 - Covid test up to this point. Case was reviewed with Dr. Roblero he agrees admit to stepdown. Lab Data: Attestation: I reviewed the patient's lab results. Labs: Lab Results 05/23/20 05/23/20 05/23/20 Range/Units 16:05 16:05 16:05 WBC 9.7 (4.0-10.0) 10^3/ uL RBC 4.83 (4.1-5.3) 10^6/u L Hgb 13.8 (11.5-15.3) g/dL Hct 42.8 (37.0-47.0) % MCV 88.6 (81-99) fL MCH 28.6 (28.0-34.0) pg MCHC 32.2 (30.0-36.0) g/dL RDW 13.3 (12.1-15.1) % Plt Count 350 (130-400) 10^3/c mm MPV 9.1 (7.4-10.4) fL Neut % (Auto) 65.5 % Lymph % (Auto) 24.7 % [place] % (Auto) 6.3 % Eos % (Auto) 2.0 % Baso % (Auto) 0.4 % Neut # (Auto) 6.37 (1.8-7.7) 10^3/u L Lymph # (Auto) 2.4 (0.8-4.8) 10^3/u L [place] # (Auto) 0.6 (0.2-0.9) 10^3/u L Eos # (Auto) 0.2 (0.0-0.8) 10^3/u L Baso # (Auto) 0.0 (0.0-0.1) 10^3/u L Nucleated RBC % (a uto) 0 % Nucleated RBCs # 0.0 /100WBC Sodium 135 L (136-145) mmol/L Potassium 4.0 (3.5-5.1) mmol/L Chloride 98 (98-107) mmol/L Carbon Dioxide 23 (22-29) mmol/L Anion Gap 18.0 (5-19) BUN 20 (8-23) mg/dL Creatinine 1.1 H (0.5-0.9) mg/dL GFR Calculation Not Reportable Glucose 288 H (65-115) mg/dL Calculated Osmolal ity 293 (285-295) mOsm/k g Lactic Acid 2.9 H (0.5-2.2) mmol/L Calcium 9.3 (8.5-10.5) mg/dL Magnesium 1.8 (1.7-2.3) mg/dL Total Bilirubin 0.2 (0.15-1.2) mg/dL AST 16 (0-32) U/L ALT 14 (0-33) U/L Alkaline Phosphata se 89 (35-105) IU/L Troponin T Baselin e (0-10) ng/L NT-Pro-B Natriuret Pep 3320 H (0-450) pg/mL Total Protein 6.6 (6.6-8.7) g/dL Albumin 3.6 (3.5-5.2) g/dL Globulin 3.0 (1.3-4.6) g/dL Procalcitonin 0.12 (0-0.5) ng/mL 05/23/20 Range/Units 16:05 WBC (4.0-10.0) 10^3/ uL RBC (4.1-5.3) 10^6/u L Hgb (11.5-15.3) g/dL Hct (37.0-47.0) % MCV (81-99) fL MCH (28.0-34.0) pg MCHC (30.0-36.0) g/dL RDW (12.1-15.1) % Plt Count (130-400) 10^3/c mm MPV (7.4-10.4) fL Neut % (Auto) % Lymph % (Auto) % [place] % (Auto) % Eos % (Auto) % Baso % (Auto) % Neut # (Auto) (1.8-7.7) 10^3/u L Lymph # (Auto) (0.8-4.8) 10^3/u L [place] # (Auto) (0.2-0.9) 10^3/u L Eos # (Auto) (0.0-0.8) 10^3/u L Baso # (Auto) (0.0-0.1) 10^3/u L Nucleated RBC % (a uto) % Nucleated RBCs # /100WBC Sodium (136-145) mmol/L Potassium (3.5-5.1) mmol/L Chloride (98-107) mmol/L Carbon Dioxide (22-29) mmol/L Anion Gap (5-19) BUN (8-23) mg/dL Creatinine (0.5-0.9) mg/dL GFR Calculation Glucose (65-115) mg/dL Calculated Osmolal ity (285-295) mOsm/k g Lactic Acid (0.5-2.2) mmol/L Calcium (8.5-10.5) mg/dL Magnesium (1.7-2.3) mg/dL Total Bilirubin (0.15-1.2) mg/dL AST (0-32) U/L ALT (0-33) U/L Alkaline Phosphata se (35-105) IU/L Troponin T Baselin e 27 H (0-10) ng/L NT-Pro-B Natriuret Pep (0-450) pg/mL Total Protein (6.6-8.7) g/dL Albumin (3.5-5.2) g/dL Globulin (1.3-4.6) g/dL Procalcitonin (0-0.5) ng/mL Discharge Plan Discharge Patient Disposition: Admitted As Inpatient Admit Provider: Sd Roblero Clinical Impression: Atrial fibrillation with RVR Condition: Stable Discharge Diet: Cardiac and Diabetic Discharge Activity: Increase activity as tolerated and As per PT/OT instructions Sign Out Sign Out Data: Patient Sign Out occurred on 05/23/20 at 18:25. Patient's care was discussed, and care was transferred from to Nicki Airam [facility]. Coding Level of Care Code ED Transmitter Engineer for Chg Fwd Exam Comprehensive
[2020-05-23 16:31] LABS: Lactic Sepsis W/Reflex 2.9 mmol/L (0.5-2.2)
[2020-05-23 16:33] LABS: Troponin(5th) Baseline 27 ng/L (0-10)
[2020-05-23 16:42] LABS: NT Pro B Type Natriuretic Pept 3320 pg/mL (0-450); Procalcitonin 0.12 ng/mL (0-0.5)
[2020-05-23 16:53] LABS: Alanine Aminotransferase 14 U/L (0-33); Albumin Level 3.6 g/dL (3.5-5.2); Alkaline Phosphatase 89 IU/L (35-105); Aspartate Amino Transferase 16 U/L (0-32); Blood Urea Nitrogen 20 mg/dL (8-23); Calcium 9.3 mg/dL (8.5-10.5); Carbon Dioxide 23 mmol/L (22-29); Chloride 98 mmol/L (98-107); Glucose 288 mg/dL (65-115); Magnesium 1.8 mg/dL (1.7-2.3); Osmolality Calculated 293 mOsm/kg (285-295); Sodium 135 mmol/L (136-145); Total Bilirubin 0.2 mg/dL (0.15-1.2); Total Protein 6.6 g/dL (6.6-8.7)
--- NOTE | 2020-05-23 17:39 | ECG_ITS ---
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
[2020-05-23 17:59] LABS: Reflex Lactate Order REFLEX LACTIC ORDERD
--- NOTE | 2020-05-23 19:00 | PC.NURSE ---
Report from KAREY Moses
[2020-05-23 20:20] LABS: Troponin 5 2HR 27.88 ng/L (0-10); Troponin 5 2HR Delta 0.88 ABS# (0-10)
--- NOTE | 2020-05-23 20:25 | PM.HP ---
Providers/Chief Complaint Admitting Physician: Sd Roblero MD Primary Care Provider: Zenaida Spencer DO Chief Complaint: SOB History of Present Illness Daily Barreto is a 85 year old female with a past medical history of congenital deafness, paroxysmal atrial fibrillation, not on anticoagulation, history of bilateral knee replacement, who presents to [facility] due to complaints of fatigue, weakness, shortness of breath. Patient presents with daughter, who helps in the history taking. Patient tells me that she has had bilateral knee replaced this year, she did well with physical therapy, however over the last month or so she has had a gradual decline, increased weakness, increased fatigue, no joint pain, no joint tenderness, no falls, she has less energy to do the activities that she enjoys doing. No complaints of bloody or black stools, has intermittent episodes of lightheadedness and dizziness. She also has been complaining of increased shortness of breath with exertion, progressively getting worse, no orthopnea, no paroxysmal nocturnal dyspnea, no history of sleep apnea. Denies chest pain. Denies a cardiac history. No history of strokes. No slurring of her speech, no facial droop, she does state that bilateral lower extremities feel weak, the left more than right, daughter states that this is fairly unusual for her as she is fairly independent, and fairly active. No aphasia. Patient's shortness of breath progressively got worse so she went to the ER at [facility], she tested negative for the Covid rapid, the Covid PCR was negative, she had a CT angiogram of her chest which is negative for pulmonary emboli. They diagnosed her for heart failure and sent her home on Lasix, however she continued to feel short of breath, so she presented to [facility]. In the ER she was found to have A. fib with RVR, placed on a Cardizem drip, hospitalist team was called for admission. Review of Systems Const: Reports: fatigue and malaise; Denies: fever(s) or chills Eyes: Denies: change in vision or blurry vision ENMT: Denies: nasal congestion Card: Reports: irregular heart rhythm and pre-syncope; Denies: chest pain or palpitations Resp: Reports: dyspnea; Denies: productive cough, non-productive cough or wheezing GI: Denies: abdominal pain, nausea, vomiting, hematemesis, diarrhea, constipation, hematochezia or melena : Denies: flank pain, dysuria or urinary frequency Musc: Denies: neck pain or back pain Skin/Breast: Denies: rash Neuro: Denies: headache(s), dizziness or vertigo Psych: Denies: anxiety or depression Endo: Denies: polyuria or polydipsia Medications/Allergies Home Medications Medication Instructions Recorded Confirmed Last Taken Type calcium citrate-vitamin D3 1 tab PO DAILY 08/10/19 05/23/20 05/23/20 History [Calcium Citrate + D] cinnamon bark [Cinnamon] 500 mg PO DAILY 08/10/19 05/23/20 05/23/20 History metoprolol succinate 25 mg capsule 100 mg PO DAILY each 11/20/19 05/23/20 05/23/20 History sprinkle, ext. 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 High blood pressure History of atrial fibrillation History of vaginal delivery Hx of non-insulin dependent diabetes mellitus Surgical History (Updated 05/23/20 @ 20:30 by Sd Roblero MD) H/O total knee replacement History of right knee joint replacement Hx of cholecystectomy Family History (Updated 05/23/20 @ 20:31 by Sd Roblero MD) Mother Diabetes Father CHF (congestive heart failure) Social History (Updated 05/23/20 @ 20:31 by Sd Roblero MD) Smoking and tobacco status: never smoked Alcohol intake: never Substance/Drug Use: never Vitals/I&O/Wt Last Vital Signs Temp 98.7 F 05/23/20 15:27 Pulse 129 H 05/23/20 20:00 Resp 20 H 05/23/20 20:00 BP 102/68 05/23/20 20:00 Pulse Ox 95 05/23/20 20:00 05/23/20 05/23/20 05/23/20 06:59 14:59 22:59 Intake Total 3.917 / 3.917 Balance 3.917 / 3.917 Weight last 48 hrs Weight 104.78 kg Physical Exam Const: COMMON NORMALS: no acute distress and patient oriented x3 GENERAL APPEARANCE: cooperative and comfortable HENMT: COMMON NORMALS: normocephalic HEAD & SCALP: normocephalic Eye: COMMON NORMALS: Equal, round and reactive pupils present and EOMs intact bilaterally GENERAL EYE: appearance normal, both eyes and all related structures PUPIL: Yes Equal, round and reactive pupils present Neck/C-Spine: COMMON NORMALS: full ROM, no lymphadenopathy, no JVD and Thyroid normal THYROID: Thyroid normal Lymph: LYMPHATIC: no lymphadenopathy noted Resp: COMMON NORMALS: normal respiratory effort, No retractions, No use of accessory muscles and clear to auscultation bilaterally AUSCULTATION: clear to auscultation bilaterally Cardio: COMMON NORMALS: no JVD, regular rate, regular rhythm, S1 normal heart sound present, S2 normal heart sound present, No gallops present (Cardio), No clicks present (Cardio) and No murmurs present (Cardio) RATE: tachycardic RHYTHM: abnormal rhythm irregularly irregular HEART SOUNDS: S1 normal heart sound present and S2 normal heart sound present GI: COMMON NORMALS: Normal to inspection, nondistended, normoactive bowel sounds present, Soft to palpation, non-tender and No hepatosplenomegaly present PALPATION: Yes Soft to palpation and Yes No hepatosplenomegaly present Extremity: COMMON NORMALS: normal to inspection, full ROM and no pedal edema Neuro: COMMON NORMALS: patient oriented x3, CN's II-XII intact bilaterally, moves all extremities and no focal motor deficits COORDINATION/BALANCE: [id number] test normal SPEECH: speech normal Psych: COMMON NORMALS: mental status grossly normal, Normal thought process present and cooperative THOUGHT PROCESS: Normal thought process present Data : 05/23/20 16:05 05/23/20 16:05 A&P Assessment and plan (1) Atrial fibrillation with RVR: -Heart rate 129, currently on A. fib, on Cardizem drip -Has a history of paroxysmal atrial fibrillation PLAN: -Admit to cardiac stepdown unit -Continue Cardizem drip -We will try to transition to metoprolol 75 twice daily -Start Eliquis 5 mg twice daily, after CT head negative for intracranial hemorrhage -We will order CT of the head to rule out stroke -Order cardiac echocardiogram - is a DNR/DNI -Eliquis for DVT prophylaxis Status: Acute (2) NSTEMI (non-ST elevated myocardial infarction): -Baseline troponin 2 delta 0.88 7, 120-minute 27.88, delta 0.88 -No active chest pain -Add atorvastatin 40 mg daily -Aspirin 81 mg -Beta-ana as above Status: Acute (3) CHF (congestive heart failure): -Lasix 40 mg daily, monitor creatinine closely, strict I's and O's, fluid restrictions 1500 cc -Ordered cardiac echocardiogram Status: Acute (4) Generalized weakness: -PT OT, order CT of the head rule out stroke Status: Acute (5) Hx of non-insulin dependent diabetes mellitus: -Diet controlled, check hemoglobin A1c Status: Acute Attestations Medical Necessity Statement*: Patient requires hospitalization, inpatient, greater than 2 midnights A. fib with RVR, elevated troponins, CHF Coding Level of Care Code Acute Standpipe Tender for [facility] Fwd Diagnoses Atrial fibrillation with RVR I48.91 NSTEMI (non-ST elevated myocardial infarction) I21.4 CHF (congestive heart failure) I50.9 Generalized weakness R53.1 Hx of non-insulin dependent diabetes mellitus Z86.39
--- NOTE | 2020-05-23 21:16 | CTR_ITS ---
PROCEDURE INFORMATION: Exam: CT Head Without Contrast Exam date and time: 05/23/2020 9:18 PM Age: 85 years old Clinical indication: Weakness, extremity; Left; Additional info: Stroke? TECHNIQUE: Imaging protocol: Computed tomography of the head without contrast. Radiation optimization: All CT scans at this facility use at least one of these dose optimization techniques: automated exposure control; mA and/or kV adjustment per patient size (includes targeted exams where dose is matched to clinical indication); or iterative reconstruction. ADDITIONAL STUDY INFORMATION: Total DLP (mGy-cm): 770.9 COMPARISON: No relevant prior studies available. FINDINGS: Examination is limited by artifacts from patient motion. There are small amounts of ill-defined low-density in anterior aspect right frontal lobe and corpus callosum, in one area in upper aspect right frontal lobe, worrisome for recent infarctions. There is mild low density in the bilateral periventricular white matter which may represent chronic small vessel ischemic disease in the appropriate clinical setting. There are prominent intracranial arterial calcifications. There is mild cerebral cortical volume loss. Ventricles do not appear significantly dilated. No depressed calvarial fracture is demonstrated. Visualized paranasal sinuses and mastoid air cells demonstrate no significant opacification. CT/CT head wo con* [id number] IMPRESSION: There are small amounts of ill-defined low-density in anterior aspect right frontal lobe and corpus callosum, in one area in upper aspect right frontal lobe, worrisome for recent infarctions. Radiation Dose CTDIVOL = (mGy): DLP = 770.9 (mGy-cm)
--- NOTE | 2020-05-23 21:39 | ECG_ITS ---
[facility] Test Date: 2020-05-23 Pat Name: Daily Barreto Department: Room: Gender: Female Histologic Technician: : 1935 Requested By: Lynne Monroe Order Number: [id number] Reading MD: HARINDER DANIELS Measurements Intervals [place] Rate: 121 P: CA: -1 QRS: -81 QRSD: 141 T: 80 QT: 334 QTc: 475 Interpretive Statements ATRIAL FLUTTER/TACHYCARDIA WITH RAPID VENTRICULAR RESPONSE INDETERMINATE AXIS INTRAVENTRICULAR CONDUCTION DELAY [130+ ms QRS DURATION] Compared to ECG 05/23/2020 15:45:19 Indeterminate axis now present Intraventricular conduction delay now present Atrial fibrillation no longer present Ventricular premature complex(es) no longer present Aberrant conduction of supraventricular beat(s) no longer present Myocardial infarct finding no longer present Electronically Signed On 05-24-2020 19:33:58 PIPE BENDING MACHINE OPERATOR by HARINDER DANIELS [id number]
--- NOTE | 2020-05-23 22:44 | PC.NURSE ---
Patient received from ED via stretcher. Patient is deaf/extremely [place] with hearing aids at bedside. Removed patient's socks and observed multiple wounds to bilateral soles of her feet all in various stages of healing. No drainage or weeping to wounds. No foul odor noted. Patient reports seeing a manager linux for wounds on her feet . Patient denies pain to feet at this time. Patient currently has cardizem drip at 10ml/hr with heart rate sustained at 125.
[2020-05-24] VITALS (7 sets, daily range): BP systolic 100–111; BP diastolic 69–78; PULSE 123–127; RESP 12–22; TEMP 35.9–36.8; O2SAT 91–96
[2020-05-24] MEDS: apixaban 5 mg Tablet PO ×3 (00:03→21:02)
[2020-05-24] MEDS: aspirin 81 mg EC Tablet PO ×2 (00:03→21:02)
[2020-05-24] MEDS: FUROsemide 10 mg/mL SDV 4mL 40 MG IVP ×2 (00:04→12:14)
[2020-05-24] MEDS: atorvastatin 40 mg Tablet PO ×2 (00:04→21:02)
[2020-05-24 01:38] LABS: Blood Urine Neg (Negative); Glucose Urine UA Norm (Normal); Ketones Urine Negative (Negative); Nitrate Urine Negative (Negative); Protein Urine Neg (Negative); Specific Gravity, Urine 1.015 (1.005-1.030); Urine Appearance Cloudy (CLEAR); Urine Color Yellow (Yellow)
[2020-05-24 01:39] LABS: Add Urine Culture? No; Bacteria Urine 3+ /hpf; Bilirubin Urine Neg (Negative); Leukocyte Esterase Urine Trace (Negative); RBC Urine 0-4 /hpf (0-2); Squamous Epithelial Cell Urine 0-4 /hpf (0-5); Urobilinogen Urine Norm (Negative)
[2020-05-24] MEDS: metoprolol tartrate 50 mg Tablet 75 MG PO ×4 (06:21→17:07)
[2020-05-24 06:26] LABS: Basophils # 0.1 10^3/uL (0.0-0.1); Basophils % 0.6 %; Eosinophils # 0.2 10^3/uL (0.0-0.8); Eosinophils % 1.9 %; Hematocrit 42.9 % (37.0-47.0); Hemoglobin 13.9 g/dL (11.5-15.3); Lymphocytes # 2.1 10^3/uL (0.8-4.8); Lymphocytes % 21.2 %; Mean Corpuscular HGB Conc 32.4 g/dL (30.0-36.0); Mean Corpuscular Hemoglobin 28.7 pg (28.0-34.0); Mean Corpuscular Volume 88.5 fL (81-99); Mean Platelet Volume 9.2 fL (7.4-10.4); Monocytes # 0.7 10^3/uL (0.2-0.9); Monocytes % 7.3 %; Neutrophils # 6.74 10^3/uL (1.8-7.7); Nucleated Red Blood Cells % 0 %; Platelet Count 336 10^3/cmm (130-400); Red Blood Count 4.85 10^6/uL (4.1-5.3); Red Cell Distribution Width 13.3 % (12.1-15.1); White Blood Count 9.9 10^3/uL (4.0-10.0)
[2020-05-24 06:39] LABS: Lactic Sepsis W/Reflex 3.1 mmol/L (0.5-2.2)
[2020-05-24 06:49] LABS: Alanine Aminotransferase 13 U/L (0-33); Albumin Level 3.4 g/dL (3.5-5.2); Alkaline Phosphatase 84 IU/L (35-105); Anion Gap 18.6 (5-19); Aspartate Amino Transferase 16 U/L (0-32); Blood Urea Nitrogen 19 mg/dL (8-23); Calcium 8.9 mg/dL (8.5-10.5); Carbon Dioxide 23 mmol/L (22-29); Chloride 100 mmol/L (98-107); Glucose 219 mg/dL (65-115); Magnesium 1.6 mg/dL (1.7-2.3); Osmolality Calculated 295 mOsm/kg (285-295); Phosphorus 4.4 mg/dL (2.5-4.5); Potassium 3.6 mmol/L (3.5-5.1); Sodium 138 mmol/L (136-145); Thyroid Stimulating Hormone 1.78 uIU/mL (0.27-4.20); Total Bilirubin 0.4 mg/dL (0.15-1.2); Total Protein 6.4 g/dL (6.6-8.7)
[2020-05-24 06:50] LABS: Procalcitonin 0.12 ng/mL (0-0.5)
[2020-05-24 07:01] LABS: Chol HDL Ratio 4.41 mg/dL (0.0-4.40); Cholesterol 150 mg/dL (0-200); HDL Cholesterol 34 mg/dL (60-100); LDL Cholesterol Calculated 65 mg/dL (50-129); LDL HDL Ratio 1.91 RATIO (0.00-3.22); Triglycerides 256 mg/dL (0-150)
--- NOTE | 2020-05-24 07:17 | PC.NURSE ---
start time for Metoprolol 75 mg BID 0900 per MD. One time dose given at 0:630
[2020-05-24 08:02] LABS: Reflex Lactate Order REFLEX LACTIC ORDERD
[2020-05-24 08:04] LABS: Estmated Average Glucose 177; Hemoglobin A1C 7.8 % (4.0-6.0)
--- NOTE | 2020-05-24 09:54 | P.PN_ITS ---
Subjective Subjective: Interval history: Overnight labs and vitals reviwed . Continues to be tachycardic. Currently on Cardizem drip at 15. Overlap with p.o. metoprolol started. Noted to be visibly tachypneic on exam today Medications: Reviewed: Yes Vitals/I&O/Wt Last Vital Signs Temp 97.0 F L 05/24/20 07:04 Pulse 124 H 05/24/20 07:04 Resp 12 05/24/20 07:04 BP 105/72 05/24/20 07:04 Pulse Ox 93 05/24/20 07:04 05/23/20 05/24/20 05/24/20 22:59 06:59 14:59 Intake Total 3.917 / 3.917 371.083 / 375.000 Output Total 625 / 625 Balance 3.917 / 3.917 -253.917 / -250.000 Weight last 48 hrs Weight 104.78 kg Physical Exam Narrative: EXAM NARRATIVE: GEN: Awake, alert and oriented, no acute distress CVS: S1S2 N RS: CTA B/L Abd: Soft, nt/nd , bs+ COLLAR WORKER: no focal neuro deficits Data : 05/24/20 06:00 05/24/20 06:00 A&P Assessment and plan (1) Atrial fibrillation with RVR: -Heart rate continues to be in 120s, currently on Cardizem at 15/h Overlap started with p.o. metoprolol 75 twice daily, monitor for response. -Has a history of paroxysmal atrial fibrillation -Started on Eliquis 5 mg p.o. twice daily -Echocardiogram taken and pending Status: Acute (2) NSTEMI (non-ST elevated myocardial infarction): -Baseline troponin 2 delta 0.88 7, 120-minute 27.88, delta 0.88 -Continue atorvastatin 40 mg daily -Continue aspirin 81 mg -Started on metoprolol p.o. Status: Acute (3) CHF (congestive heart failure): -Patient noted to be visibly tachypneic on exam with audible crepits. Increase Lasix to 40 mg IV every 12 hours Monitor strict SOFIA and daily weight. -Ordered cardiac echocardiogram, results remain pending at this time Status: Acute (4) Generalized weakness: Status: Acute (5) Hx of non-insulin dependent diabetes mellitus: Hemoglobin A1c currently at 7.6, consistent with diabetes mellitus. We will start Metformin upon discharge For now start on low-dose insulin sliding scale. Status: Acute Attestations Medical Necessity Statement*: Continues to have A. fib with RVR, signs of CHF exacerbation, needs rate control and optimization of volume status. Coding Level of Care Code Acute Systems Engineering Manager for Chg Fwd Diagnoses Atrial fibrillation with RVR I48.91 NSTEMI (non-ST elevated myocardial infarction) I21.4 CHF (congestive heart failure) I50.9 Generalized weakness R53.1 Hx of non-insulin dependent diabetes mellitus Z86.39
[2020-05-24 11:05] LABS: Lactic Acid level (Lactate) 2.9 mmol/L (0.5-2.2)
[2020-05-24 11:06] LABS: Glucose Point of Care 269 mg/dL (70-110)
--- NOTE | 2020-05-24 11:56 | PC.CHAP ---
Pastoral Care Encounter/Spiritual Assessment Type of Contact [] Declined rn burn visit [] Patient/Family/Request visit [] Outpatient visit [] Follow-up visit [] Physician referral [] Code/Alert [xx] Routine visit [] Staff referral [] Actively dying [] Patient sleeping [] Family support [] [] Out of room [] Palliative care [] [] Receiving care in room [] Pre-surgical visit [] Trauma [] Long length of stay [] ICU visit [] Other: Relational/Emotional Strength [xx] Patient feels connected with others/family/visitors/staff [] Distress [] Loneliness/isolation [] Abandonment Spirituality of Patient [xx] Person of Cyndi [] Attends Judaism of their Cyndi [xx] Believes in Prayer [] Reads Bible or Nondenominational materials [] There are Spiritual issues to be addressed Bodily Injury Adjuster Interventions [xx] Prayer [xx] Active listening [xx] Non-anxious presence [] Spiritual/emotional support [] Crisis/trauma care [] Spiritual counseling [] Bereavement support [] Provided bereavement packet [] Provided Bible/devotional materials [] Provided toy/stuffed animal, coloring book to patient or family member [] Provided Communion [] Anointing/[place] [] Salvation [xx] Completed spiritual assessment [] Other: Impact on Illness or Injury [] Angry [] Fearful [] Anxious [] Often cries [] Exhaustion [] Unable to work [] Unable to attend mu-ism [] Unable to walk/stand [] Unable to read [] Unable to drive [] Unable to eat/drink [] Unable to sleep [] Unable to be with family [] Patient intubated [] Other: Summary Pt is older person who is hard of hearing but reads lips. Bodily Injury Adjuster removed mask so she could read my lips. She wanted prayer but not conversation due to difficulty communicating. She said she was feeling better. Time spent with patient 5 minutes Bodily Injury Adjuster Daily Parrish
[2020-05-24 16:45] LABS: Glucose Point of Care 285 mg/dL (70-110)
--- NOTE | 2020-05-24 17:57 | NUR.SHIFT ---
Primary nurse notified of urine culture results by [facility] in [place]. Report faxed and placed in chart. Dr. Timmons notified.
[2020-05-24 20:56] LABS: Glucose Point of Care 194 mg/dL (70-110)
--- NOTE | 2020-05-24 21:16 | USCV_ITS ---
Daily Barreto Age: 85 Gender: F : 1935 Exam Date: 05/24/2020 05:32 Ordering Phys: Sd Roblero MD Technologist: Gina Espinoza Exam Location: [facility] [place] Indication: SOB WEAKNESS HISTORY: SOB and Weakness. CVA PROCEDURES: Venous duplex imaging was performed in bilateral lower extremities. The following venous structures were evaluated: common femoral vein, profunda vein, proximal portion of the greater saphenous vein, superficial femoral vein, and the popliteal vein. In addition, the posterior tibial and peroneal trunk were evaluated. Serial compression, augmentation maneuvers, and spectral Doppler flow evaluation were performed. FINDINGS: No DVT seen in any vessel examined CONCLUSIONS No evidence of right lower extremity DVT. No evidence of left lower extremity DVT. Jimmy Harris MD (Electronically Signed) Final Date: 24 May 2020 16:56 S
[2020-05-25] VITALS (11 sets, daily range): BP systolic 98–125; BP diastolic 63–89; PULSE 84–128; RESP 17–22; TEMP 36.3–36.9; O2SAT 92–96
[2020-05-25] MEDS: FUROsemide 10 mg/mL SDV 4mL 40 MG IVP ×2 (00:59→12:35)
--- NOTE | 2020-05-25 05:00 | USCV_ITS ---
Daily Barreto Age: 85 Gender: F : 1935 Exam Date: 05/25/2020 14:36 Ordering Phys: Sd Roblero MD Technologist: Katie Mahan [place] [facility] [place]: SOB BP: / HR: Rhythm: Sinus Technical Quality: Suboptimal MEASUREMENTS (Male / Female) Normal Values 2D ECHO LV Diastolic Diameter PLAX 4.1 cm 4.2 - 5.9 / 3.9 - 5.3 cm LV Systolic Diameter PLAX 3.4 cm LV Chamber Size 3.8 cm IVS Diastolic Thickness 1.5 cm 0.6 - 1.0 / 0.6 - 0.9 cm IVS Systolic Thickness 1.6 cm LVPW Diastolic Thickness 1.2 cm 0.6 - 1.0 / 0.6 - 0.9 cm LVPW Systolic Thickness 2.1 cm RV Chamber Size 2.3 cm LV Ejection Fraction 2D Teich 36.8 % LA Diameter 4.0 cm LA Width 2.9 cm LA Height 5.1 cm RA Width 2.5 cm RA Height 5.2 cm Aorta at Sinotubular Diameter 3.0 cm M-MODE LV Diastolic Diameter MM 5.1 cm 4.2 - 5.9 / 3.9 - 5.3 cm LV Systolic Diameter MM 3.9 cm LV Ejection Fraction MM Teich 45.7 % IVS Diastolic Thickness MM 1.1 cm 0.6 - 1.0 / 0.6 - 0.9 cm IVS Systolic Thickness MM 1.3 cm LVPW Diastolic Thickness MM 1.4 cm 0.6 - 1.0 / 0.6 - 0.9 cm LVPW Systolic Thickness MM 1.3 cm RV Diastolic Diameter MM 1.3 cm Aortic Annulus Diameter 3.6 cm LA Ao Ratio MM 1.2 MV E Point Septal Separation 1.8 cm DOPPLER AV Peak Velocity 146.0 cm/s LVOT Peak Velocity 90.0 cm/s MV Peak Velocity 133.0 cm/s MV Area PHT 3.9 cm squared Mitral E to A Ratio 1.4 MV E' Velocity 61.0 cm/s Mitral E to MV E' Ratio 15.1 Mitral E to LV E' Lateral Ratio 18.8 Mitral E to LV E' Septal Ratio 12.8 TR Peak Velocity 240.1 cm/s TR Peak Gradient 23.1 mmHg TR Mean Velocity 187.5 cm/s TR Mean Gradient 15.0 mmHg TR Velocity Time Integral 61.7 cm TV Peak E Velocity 38.0 cm/s PV Peak Velocity 84.0 cm/s RV Acceleration Time 0.1 s RV Ejection Time 0.2 s RV AcT/ET 0.2 FINDINGS Left Ventricle Normal left ventricular cavity size. Normal left ventricular systolic function. Left ventricular ejection fraction is estimated at 55 %. No regional wall motion abnormalities. Abnormal septal motion consistent with conduction abnormality. Right Ventricle Normal right ventricular size and systolic function. Right ventricular systolic pressure 24 mmHg. Right Atrium Mildly increased right atrial size. Left Atrium Moderately increased left atrial size. Mitral Valve Moderate mitral annular calcification. Severely thickened mitral valve. No significant mitral valve stenosis. Mild mitral valve regurgitation. Aortic Valve Aortic valve not well visualized. Mildly thickened and calicified aortic valve. No aortic valve stenosis. No aortic valve regurgitation. Tricuspid Valve Structurally normal tricuspid valve. No tricuspid valve stenosis. Trace to mild tricuspid valve regurgitation. Pulmonic Valve Pulmonic valve not well visualized. Pericardium Trivial pericardial effusion. No evidence of hemodynamic compromise. Aorta Normal sized aortic root. CONCLUSIONS 1. Normal left ventricular cavity size. Normal left ventricular systolic function. Left ventricular ejection fraction is estimated at 55 %. No diagnostic regional wall motion abnormalities. 2. Normal right ventricular size and systolic function. 3. Mild mitral valve regurgitation. 4. No prior similar studies to compare. Whitney Sadler MD (Electronically Signed) Final Date: 26 May 2020 08:57 S
[2020-05-25 05:58] LABS: Lactic Sepsis W/Reflex 2.3 mmol/L (0.5-2.2)
[2020-05-25 06:07] LABS: Alanine Aminotransferase 11 U/L (0-33); Albumin Level 3.6 g/dL (3.5-5.2); Alkaline Phosphatase 94 IU/L (35-105); Anion Gap 17.7 (5-19); Aspartate Amino Transferase 12 U/L (0-32); Blood Urea Nitrogen 24 mg/dL (8-23); Calcium 8.8 mg/dL (8.5-10.5); Carbon Dioxide 24 mmol/L (22-29); Chloride 101 mmol/L (98-107); Creatinine Clr Calc Pharmacy 45.0024; Globulin 2.2 g/dL (1.3-4.6); Glucose 216 mg/dL (65-115); Magnesium 1.7 mg/dL (1.7-2.3); Osmolality Calculated 299 mOsm/kg (285-295); Phosphorus 4.5 mg/dL (2.5-4.5); Potassium 3.7 mmol/L (3.5-5.1); Sodium 139 mmol/L (136-145); Total Bilirubin 0.6 mg/dL (0.15-1.2); Total Protein 5.8 g/dL (6.6-8.7)
[2020-05-25 06:15] LABS: Procalcitonin 0.12 ng/mL (0-0.5)
--- NOTE | 2020-05-25 06:38 | PC.NURSE ---
PT HAD AN UNEVENTFUL NIGHT. HR STAYED IN THE 120'S ON A CARDIZEM DRIP AT 15ML/HR. PT STILL IN A-FIB. PT IS ASYMPTOMATIC. PT DENIES PAIN AT THIS TIME. WILL CONTINUE TO MONITOR.
[2020-05-25 07:13] LABS: Glucose Point of Care 190 mg/dL (70-110)
[2020-05-25 07:20] LABS: Reflex Lactate Order REFLEX LACTIC ORDERD
[2020-05-25] MEDS: apixaban 5 mg Tablet PO ×2 (08:39→21:29)
[2020-05-25] MEDS: metoprolol tartrate 50 mg Tablet 75 MG PO (08:39)
[2020-05-25 10:45] LABS: Lactic Acid level (Lactate) 2.9 mmol/L (0.5-2.2)
[2020-05-25 10:58] LABS: Glucose Point of Care 285 mg/dL (70-110)
--- NOTE | 2020-05-25 13:30 | P.PN_ITS ---
Subjective Subjective: Interval history: Continues on 15 of Cardizem. Creatinine at 1.2. Urine output 3 L. Echocardiogram remains pending. Heart rate somewhat better controlled today between 86-1 10. Medications: Reviewed: Yes Vitals/I&O/Wt Last Vital Signs Temp 98.4 F 05/25/20 12:00 Pulse 86 05/25/20 12:00 Resp 18 05/25/20 12:00 BP 101/68 05/25/20 12:00 Pulse Ox 94 05/25/20 10:11 05/24/20 05/25/20 05/25/20 22:59 06:59 14:59 Intake Total 185 / 299.25 125 / 424.25 Output Total 1650 / 1850 1200 / 3050 Balance -1465 / -1550.75 -1075 / -2625.75 Weight last 48 hrs Weight 104.78 kg Physical Exam Narrative: EXAM NARRATIVE: GEN: Awake, alert and oriented, no acute distress CVS: S1S2 N RS: CTA B/L Abd: Soft, nt/nd , bs+ COLOR SHOP HELPER: no focal neuro deficits Data : 05/24/20 06:00 05/25/20 05:21 A&P Assessment and plan (1) Atrial fibrillation with RVR: -Heart rate continues to be in 120s, currently on Cardizem at 15/h Overlap started with p.o. metoprolol 75 twice daily, increase dose to 100 mg p.o. twice daily -Has a history of paroxysmal atrial fibrillation -Started on Eliquis 5 mg p.o. twice daily additionally. -Echocardiogram remains pending Status: Acute (2) NSTEMI (non-ST elevated myocardial infarction): -Baseline troponin 2 delta 0.88 7, 120-minute 27.88, delta 0.88 -Continue atorvastatin 40 mg daily -Continue aspirin 81 mg -Started on metoprolol p.o. Status: Acute (3) CHF (congestive heart failure): -Volume status appears to be improved, reduce Lasix to 40 mg IV daily -Ordered cardiac echocardiogram, results remain pending at this time Status: Acute (4) Generalized weakness: Status: Acute (5) Hx of non-insulin dependent diabetes mellitus: Hemoglobin A1c currently at 7.6, consistent with diabetes mellitus. We will start Metformin upon discharge For now start on low-dose insulin sliding scale. Status: Acute Attestations Medical Necessity Statement*: A. fib with RVR, tachycardia, optimization of volume status. Coding Level of Care Code Acute Customer Strategy Manager for Chg Fwd Diagnoses Atrial fibrillation with RVR I48.91 NSTEMI (non-ST elevated myocardial infarction) I21.4 CHF (congestive heart failure) I50.9 Generalized weakness R53.1 Hx of non-insulin dependent diabetes mellitus Z86.39
--- NOTE | 2020-05-25 18:00 | PC.NURSE ---
BINDER STRIPPER HAND reported that she assisted patient to bedside commode several times throughout the day. Reported that linen was also changed while family was in room.
[2020-05-25 18:03] LABS: Glucose Point of Care 300 mg/dL (70-110)
--- NOTE | 2020-05-25 18:26 | PC.NURSE ---
During visiting hours, daughter stated she hasn't been changed in two hours and the incontinence isn't going to go away so she needs to either be placed in a brief or have a Carranza. Unable to check patient's bed at that time due to a rapid response in another room. At this time, with the assistance of a DRY PLASTERER HELPER, patient was placed in a brief. Patient's absorbent pad, linen, and gown were checked and are currently clean and dry. Daughter also stated during visiting hours they told me she has a urinary infection, so I want to know why they haven't started her on antibiotics. Dr. Deras notified of patient's UA results and stated antibiotics will not be started at this time. Dr. Timmons also notified that daughter states I think she is declining cognitively.
[2020-05-25] MEDS: metoprolol tartrate 50 mg Tablet 100 MG PO (19:23)
[2020-05-25 19:45] LABS: Glucose Point of Care 328 mg/dL (70-110)
[2020-05-25] MEDS: atorvastatin 40 mg Tablet PO (21:29)
[2020-05-25] MEDS: aspirin 81 mg EC Tablet PO (21:29)
--- NOTE | 2020-05-25 21:34 | PC.NURSE ---
Patient has been assisted to the bedside commode twice so far this shift by me and brief changed twice by me. Patient has been educated not to get up without using her call light. Patient has call light within reach. Patient states that she has no other complaints or needs at this time. Will monitor.
--- NOTE | 2020-05-25 23:17 | PC.NURSE ---
PT FAMILY/FRIEND CALLED THIS NURSE AND STATED THAT SHE IS VERY CONCERNED WITH PT CARE HERE AND THAT SHE WANTS PT ON AN ANTIBIOTIC AUGMENTIN FOR UTI. RETAIL FIELD REPRESENTATIVE NURSE NOTIFIED DR AND RECEIVED NO NEW ORDERS AT THIS TIME. FAMILY/FRIEND WAS VERY UPSET THAT THERE WASN'T AN EXEMPTION MADE TO ALLOW HER TO STAY WITH PT. FAMILY/FRIEND WENT ON TO SAY THAT PT DIDN'T RECEIVE CARE EARLIER AND THAT PT WAS INCONTINENT AND LAID IN IT FOR SOME TIME. THIS NURSE WENT TO CHECK ON PT AND PT WAS DRY. THIS NURSE ASSURED FAMILY/FRIEND THAT CARE HERE IS OF THE HIGHEST QUALITY AND THAT THE PT WILL BE WELL CARED FOR.
[2020-05-26] VITALS (10 sets, daily range): BP systolic 96–138; BP diastolic 75–91; PULSE 124–131; RESP 17–24; TEMP 36.6–37; O2SAT 90–95
--- NOTE | 2020-05-26 04:02 | ECG_ITS ---
[facility] Test Date: 2020-05-26 Pat Name: Daily Barreto Department: Room: 104 Gender: Female Marketing Officer: kevin MURRAYB: 1935 Requested By: Skye Timmons Order Number: [id number] Veronica MD: Whitney Sadler M.D. Measurements Intervals [place] Rate: 127 P: -30 AK: 204 QRS: -24 QRSD: 148 T: 131 QT: 360 QTc: 524 Interpretive Statements SINUS TACHYCARDIA LEFT BUNDLE BRANCH BLOCK [120+ ms QRS DURATION, 80+ ms Q/S IN V1/V2, 85+ ms R IN I/aVL/V5/V6] Compared to ECG 05/24/2020 14:14:57 Left bundle-branch block now present Atrial flutter no longer present Intraventricular conduction delay no longer present Electronically Signed On 05-26-2020 9:26:46 AIRPLANE FLIGHT ATTENDANT SUPERVISOR by Whitney Sadler M.D. [id number]
[2020-05-26 05:21] LABS: Lactic Sepsis W/Reflex 1.5 mmol/L (0.5-2.2)
[2020-05-26 05:34] LABS: Alanine Aminotransferase 9 U/L (0-33); Albumin Level 3.5 g/dL (3.5-5.2); Alkaline Phosphatase 91 IU/L (35-105); Aspartate Amino Transferase 13 U/L (0-32); Blood Urea Nitrogen 24 mg/dL (8-23); Calcium 8.8 mg/dL (8.5-10.5); Carbon Dioxide 26 mmol/L (22-29); Chloride 99 mmol/L (98-107); Glucose 186 mg/dL (65-115); Magnesium 1.9 mg/dL (1.7-2.3); Osmolality Calculated 293 mOsm/kg (285-295); Phosphorus 4.3 mg/dL (2.5-4.5); Sodium 137 mmol/L (136-145); Total Bilirubin 0.6 mg/dL (0.15-1.2); Total Protein 5.5 g/dL (6.6-8.7)
[2020-05-26 05:36] LABS: Procalcitonin 0.12 ng/mL (0-0.5)
[2020-05-26 05:37] LABS: Anion Gap 15.8 (5-19); Potassium 3.8 mmol/L (3.5-5.1)
--- NOTE | 2020-05-26 06:23 | PC.NURSE ---
PT HAS BEEN ASSISTED TO BSC X6. BATH WIPES USED TO CLEAN JULISA AREA. SHOWER WAS OFFERED, BUT WAS REFUSED. WILL CONTINUE TO MONITOR.
[2020-05-26 06:54] LABS: Glucose Point of Care 171 mg/dL (70-110)
--- NOTE | 2020-05-26 07:37 | PC.NURSE ---
patient was sitting on the side of the bed eating breakfast when nurse entered the room. vitals and assessment was performed. patient denied needing anything at this time. call light placed within reach, will continue to monitor.
[2020-05-26] MEDS: apixaban 5 mg Tablet PO ×2 (08:15→21:37)
[2020-05-26] MEDS: metoprolol tartrate 50 mg Tablet 100 MG PO ×2 (08:15→17:02)
--- NOTE | 2020-05-26 08:45 | PC.NURSE ---
Addendum entered by Cierra Zamora 05/26/20 09:45: time should be documented at 0910. Original Note: patient back from walking with physical therapy. agreed to sit in chair. call light and table with cell phone in reach. no needs identified at this time. will continue to monitor.
--- NOTE | 2020-05-26 08:50 | PC.NURSE ---
patient was agreeable to a bath at bedside. supplies were gathered for bath and linen change. pt washed the front of her body and needed assistance with the back, nurse washed areas that the patient had difficulty reaching and allison care was done. shower cap was applied to wash hair. patient then transferred to bed side commode in attempt to use it. while patient on commode she brushed her teeth and bed linens were changed. after patients bath physical therapy here to take patient for a walk. will continue to monitor.
--- NOTE | 2020-05-26 10:30 | PC.NURSE ---
patient denied needing use the restroom at this time. brief was checked and dry. patient sitting up in chair with call light and personal belongings in reach on the bedside table. water pitcher refilled with fresh water. no needs identified at this time.
--- NOTE | 2020-05-26 10:30 | PC.NURSE ---
family member called and expressed concern that the care the patient is recieving is not adequate enough. family expressed wanting to have a meeting with the physician oversee her care and someone in administration to discuss being able to stay and care for the patient. family stated, I don't need food or water and I will clean the toilet after I use it. Family member is concerned that communication is not being effective due to the patient being deaf and family not being here to help care for her. Family given an update of the care that this nurse provided to her throughout the shift already that included a bath, linen change, oral hygiene, and tolieting. patient also walked down the hines with therapy and her walker this morning. patient has table and belongings in reach along with call light. chair alarm is set. not other needs at this time. will continue to monitor.
--- NOTE | 2020-05-26 10:42 | PC.NURSE ---
Family called nurse with concerns that patient is not getting adequate care, family member wanting to have a conference with administration and the doctor because she wants to be able to stay and aide in the care of her loved one. Family member verbalizes understanding of current policies in place due to Covid 19. Explained to family member that there was an emergency with another patient during the time she had been not cared for properly family expresses understanding however remains very concerned and stated I will not give up on this until I am able to stay with Daily to aide in her care family notified of patients care thus far on this shift. patient and been bathed by staff room is neat and clean patient has walked with PT in [address] with walker and tolerated activity well. Patient currently sitting up in chair with all needs with in reach and nurse KAREY Norton has rounded on patient frequently explaining call to patient each time; patient verbalizing understanding. David from security and ethylbenzene cracking supervisor Sonia Varma notified of events. Plan to meet with family member in a secure location to come to solution to family concerns.
--- NOTE | 2020-05-26 11:15 | PC.NURSE ---
patient assisted to bedside commode. while on bedside commode warehouse forklift operator opened door to inform nurse that family member was here. pt used bedside commode and was assisted to chair using her walker. family member entered room with personal belongings for patient. patient needs and call light left on table in reach, family was also educated on how to use the call light. no needs identified at this time. will continue to monitor.
[2020-05-26 11:34] LABS: Glucose Point of Care 228 mg/dL (70-110)
--- NOTE | 2020-05-26 11:36 | PC.NURSE ---
family member updated on dr. jurado going to be about 30 minutes and then would be to the room to speak to her. patient blood sugar obtained at this time. will continue to monitor.
--- NOTE | 2020-05-26 12:05 | PC.SOCIAL ---
IMM Page 2 of IMM explained to patient and family at bedside. Initialed, dated, and timed and placed in chart. Copy provided to patient.
--- NOTE | 2020-05-26 13:04 | PC.NURSE ---
family pushed call light. pt wanted to lay down. patient assisted to bedside commode and then to bed. pt resting in bed, needs within reach, call light within reach. bed alarm set. will continue to monitor. family member left at this time. will continue to monitor.
--- NOTE | 2020-05-26 13:12 | USR_ITS ---
PROCEDURE INFORMATION: Exam: US Duplex Bilateral Extracranial Arteries Exam date and time: 05/26/2020 1:13 PM Age: 85 years old Clinical indication: Other: Cognitive slowing; Additional info: Evalute for carotid artery stenosis TECHNIQUE: Imaging protocol: Real-time Duplex ultrasound scan of the bilateral carotid and vertebral arteries combining franklin scale, color Doppler and spectral waveform analysis. Bilateral exam. COMPARISON: CT head wo con* [id number] 05/23/2020 9:49 PM FINDINGS: Right common carotid artery: Unremarkable. No occlusion or stenosis. Waveforms are normal. Right internal carotid artery: Unremarkable. No occlusion or stenosis. Waveforms are normal. Right ICA/CCA ratio: 1.69, normal range Right external carotid artery: No stenosis in the origin. Right vertebral artery: Unremarkable. Antegrade flow. Left common carotid artery: Unremarkable. No occlusion or stenosis. Waveforms are normal. Left internal carotid artery: Unremarkable. No occlusion or stenosis. Waveforms are normal. Left ICA/CCA ratio: 1.2 normal range Left external carotid artery: No stenosis in the origin. Left vertebral artery: Unremarkable. Antegrade flow. US/CV carotid duplex BI* [id number] IMPRESSION: No carotid arterial stenosis. REFERENCES: SRU CRITERIA. The degree of internal carotid artery stenosis is based on criteria defined by the Society of Radiologists in Ultrasound (SRU). Normal is no stenosis. Mild is less than 50% stenosis. Moderate is 50-69% stenosis. Severe is greater than 69% stenosis to near occlusion. Near occlusion is a markedly narrowed lumen. Total occlusion is no detectable patent lumen.
--- NOTE | 2020-05-26 13:12 | P.PN_ITS ---
Subjective Subjective: Interval history: Cardizem drip was turned off overnight once patient converted to sinus rhythm. This morning she is noted to be in sinus tachycardia. She remains afebrile hemodynamically stable. Lower extremity edema is improving at this point. She is saturating 92% on room air. Her to be ambulating in the hallway with physical therapy today with assistance of a diana parker. Urine output 1.8 L. 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 Normal left ventricular cavity size. Normal left ventricular systolic function. Left ventricular ejection fraction is estimated at 55 %. No diagnostic regional wall motion abnormalities. 2. Normal right ventricular size and systolic function. 3. Mild mitral valve regurgitation. 4. No prior similar studies to compare. Exam: CT Head Without Contrast Exam date and time: 05/23/2020 9:18 PM IMPRESSION: There are small amounts of ill-defined low-density in anterior aspect right frontal lobe and corpus callosum, in one area in upper aspect right frontal lobe, worrisome for recent infarctions. A&P Assessment and plan (1) Atrial fibrillation with RVR: -Converted to normal sinus rhythm, continues to be tachycardic with heart rate between 1 20-1 30. Cardizem was titrated off overnight. -Continues on metoprolol 100 mg p.o. twice daily -Has a history of paroxysmal atrial fibrillation in the past -Started on Eliquis 5 mg p.o. twice daily additionally. -Echocardiogram with normal LVEF without any acute R WMA -Cardiology consult today to assist with rate control. Status: Acute (2) NSTEMI (non-ST elevated myocardial infarction): -This is less likely now. Troponins without significant delta. Patient denies any chest pain. No acute ST-T wave changes on EKG. -Continue aspirin 81 mg, atorvastatin -Started on metoprolol p.o. Status: Acute (3) CHF (congestive heart failure): Continue Lasix 40 mg IV daily. Urine output over 24 hours at 1.8 L. Patient appearing with improved breathing, saturating 92% on room air. Status: Acute Qualifiers: Heart failure type: unspecified Heart failure chronicity: chronic Qualified Code(s): I50.9 - Heart failure, unspecified (4) Generalized weakness: Status: Acute (5) Hx of non-insulin dependent diabetes mellitus: Hemoglobin A1c currently at 7.6, consistent with diabetes mellitus. We will start Metformin upon discharge For now start on low-dose insulin sliding scale. Status: Acute (6) CVA (cerebral vascular accident): Patient's daughter is very concerned about cognitive slowing that they have noticed over the past [address] of the head upon admission showed small amount of ill-defined low density. As for the right frontal lobe and corpus callosum and right frontal lobe, worrisome for recent infarctions. This could perhaps be contributing to patient's cognitive decline. Echocardiogram without any noted thrombus. Obtain carotid artery ultrasound additionally Patient has already been started on anticoagulation with Eliquis. No past history of strokes per daughter. Status: Acute Qualifiers: CVA mechanism: embolism Precerebral and cerebral artery: unspecified cerebral artery Qualified Code(s): I63.40 - Cerebral infarction due to embolism of unspecified cerebral artery Attestations Medical Necessity Statement*: needs rate control, optimization of respiratory status, cardiology consult today Coding Level of Care Code Acute General House Worker for [facility] Kady Diagnoses Atrial fibrillation with RVR I48.91 NSTEMI (non-ST elevated myocardial infarction) I21.4 CHF (congestive heart failure) I50.9 Heart failure type: unspecified Heart failure chronicity: chronic Generalized weakness R53.1 Hx of non-insulin dependent diabetes mellitus Z86.39 CVA (cerebral vascular accident) I63.40 CVA mechanism: embolism Precerebral and cerebral artery: unspecified cerebral artery
[2020-05-26] MEDS: FUROsemide 10 mg/mL SDV 4mL 40 MG IVP (14:44)
[2020-05-26] MEDS: digoxin 250 mcg/ml INJ 2 mL 500 MCG IVP (15:16)
--- NOTE | 2020-05-26 16:00 | PC.NURSE ---
pt was sitting on the side of the bed, requested to lay back down. call light in reach, table and needs within reach. will continue to monitor.
[2020-05-26 16:45] LABS: Glucose Point of Care 210 mg/dL (70-110)
--- NOTE | 2020-05-26 17:03 | PC.NURSE ---
patient assisted to bedside commode. when patient done, assisted to chair to eat supper. table with needs in reach, call light within reach. family at bedside. will continue to monitor.
--- NOTE | 2020-05-26 17:27 | PC.NURSE ---
patient still eating while in chair at this time. fresh ice and water passed at this time. family still at bedside. call light and needs within reach. will continue to monitor.
--- NOTE | 2020-05-26 18:14 | PC.NURSE ---
patient assisted to bedside commode. patient then wanted to go to bed. patient asked if she wanted to remove hearing aids right now, patient refused at this time. patient needs and table within reach with call light. will continue to monitor.
--- NOTE | 2020-05-26 19:16 | P.CONIM_ITS ---
Providers/Reason For Consult Consulting Physican/Specialty*: Dr. Sadler, Cardiology Reason for Consult*: Atrial flutter with RVR Attending Physician: Skye Timmons MD Primary Care Provider: Zenaida Spencer DO History of Present Illness History of Present Illness Daily Barreto is a 85 year old female with past medical history of congenital deafness, paroxysmal atrial fibrillation previously not on anticoagulation, history of bilateral knee replacement presented to [facility] with complaints of fatigue, weakness and shortness of breath. She presented with DIAZ, increasing weakness, fatigue and intermittent episodes of lightheadedness and dizziness. She denied any orthopnea, paroxysmal nocturnal dyspnea or chest pain. No history of strokes. She recently was tested negative for the Covid rapid and Covid PCR at outside facility ER. CT angiogram of chest was negative for pulmonary emboli. She was diagnosed with heart failure and sent home on Lasix but that did not help. In the ER she was thought to have A. fib with RVR, placed on a Cardizem drip. EKG showed atrial flutter with RVR. CT head showed small amounts of ill-defined low-density in anterior aspect right frontal lobe and corpus callosum, in one area in upper aspect of right frontal lobe, worrisome for recent infarctions. She was transitioned to PO metoprolol and cardizem drip was stopped. Its mentioned that she had converted to SR last night, however I cannot see that. She seems to be presently in atrial flutter with RVR. At the time of evaluation, she is asymptomatic and denies any CP, SOB or palpitations. Review of Systems General: Reports: 10 or more systems reviewed and unremarkable except in HPI and below Const: Denies: fever(s) ENMT: Denies: epistaxis Card: Denies: chest pain Resp: Reports: dyspnea and productive cough GI: Denies: hematochezia : Denies: hematuria Musc: Reports: extremity swelling Neuro: Reports: weakness in extremities Meds/Allergies Home Medications and Allergies Home Medications Medication Instructions Recorded Confirmed Last Taken Type calcium citrate-vitamin D3 1 tab PO DAILY 08/10/19 05/23/20 05/23/20 History [Calcium Citrate + D] cinnamon bark [Cinnamon] 500 mg PO DAILY 08/10/19 05/23/20 05/23/20 History metoprolol succinate 25 mg capsule 100 mg PO DAILY each 11/20/19 05/23/20 05/23/20 History sprinkle, ext. release 24 hr furosemide [Lasix] 20 mg PO DAILY 05/23/20 05/23/20 05/23/20 History Allergies Allergy/AdvReac Type Severity Reaction Status Date / Time No Known Allergies Allergy Verified 11/20/19 13:37 Current Medications Current Medications Generic Name Dose Route Start Last Admin Trade Name Freq PRN Reason Stop Dose Admin Apixaban 5 mg 05/23/20 21:16 05/26/20 08:15 Eliquis PO 5 mg Q12H TEVIN Administration Aspirin 81 mg 05/23/20 22:00 05/25/20 21:29 Aspirin Ec PO 81 mg Q24H TEVIN Administration Atorvastatin Calcium 40 mg 05/23/20 21:16 05/25/20 21:29 Lipitor PO 40 mg BEDTIME TEVIN Administration Furosemide 40 mg 05/25/20 14:00 05/26/20 14:44 Lasix IVP 40 mg Q24H TEVIN Administration Diltiazem HCl 125 mg/ Sodium 125 mls @ 0 mls/hr 05/23/20 17:00 05/25/20 19:33 Chloride IV Infused .Q0M TEVIN Titration Protocol Per Protocol Insulin Aspart 0 unit 05/24/20 12:00 05/26/20 17:02 Novolog SUBCUT 4 unit WM&BEDTIME TEVIN Administration Protocol Metoprolol Tartrate 100 mg 05/25/20 18:00 05/26/20 17:02 Lopressor PO 100 mg BID TEVIN Administration PFSH Acute PFSH: Medical History 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 High blood pressure History of atrial fibrillation History of vaginal delivery Hx of non-insulin dependent diabetes mellitus Surgical History H/O total knee replacement History of right knee joint replacement Hx of cholecystectomy Family History Mother Diabetes Father CHF (congestive heart failure) Social History Smoking and tobacco status: never smoked Alcohol intake: never Substance/Drug Use: never Vitals/I&O/Wt Last Vital Signs Temp 98.0 F 05/26/20 16:00 Pulse 127 H 05/26/20 16:00 Resp 24 H 05/26/20 16:00 BP 124/91 05/26/20 16:00 Pulse Ox 94 05/26/20 16:00 05/26/20 05/26/20 05/26/20 06:59 14:59 22:59 Intake Total 120 / 365 600 / 600 240 / 840 Output Total 775 / 1425 600 / 600 950 / 1550 Balance -655 / -1060 0 / 0 -710 / -710 Physical Exam Narrative: EXAM NARRATIVE: Gen: obese woman sitting in bed, NAD Neck: No JVD appreciated RS: CTAB/L CVS: S1, S2 regular, tachycardia +, No murmur , rub or gallop appreciated. NURSING SURGICAL SERVICES DIRECTOR: AAOx 2, very hard of hearing Ext: trace-1+ bilateral edema Skin: No rash. A&P Assessment and plan (1) Atrial flutter with rapid ventricular response: Patient remains in atrial flutter with RVR. -start on digoxin, BP soft. -echo TDS but with normal LV function and no diagnostic RWMA. -May have to consider SCHUYLER/Cv if she continues to be tachycardic. -continue Eliquis 5 mg twice a day. Status: Acute (2) CHF (congestive heart failure): -on lasix Status: Acute Qualifiers: Heart failure type: unspecified Heart failure chronicity: chronic Qualified Code(s): I50.9 - Heart failure, unspecified (3) Hx of non-insulin dependent diabetes mellitus: Status: Acute (4) Generalized weakness: Status: Acute Additional A&P Information NSTEMI type 2 in setting of decompensated CHF and atrial flutter with RVR CVA Thank you for allowing me to participate in patient's care. Please feel free to call with questions or concerns. 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
[2020-05-26] MEDS: digoxin 250 mcg/ml INJ 2 mL IVP (19:26)
--- NOTE | 2020-05-26 20:18 | PC.NURSE ---
ASSUMED CARE OF PT. PT WAS ASSISTED TO BSC. FERN GATHERER NURSE WENT TO GIVE DIGOXIN AND IV WAS INFILTRATED. 20G IN THE LEFT AC WAS STARTED. 1 STICK AND PT TOLERATED WELL. THERE IS GREAT BLOOD RETURN AND IV FLUSHED WITH 10ML OF NS. FERN GATHERER NURSE CAME BACK AND GAVE DIGOXIN. HR 124 AT THIS TIME. WILL CONTINUE TO MONITOR.
[2020-05-26 20:30] LABS: Glucose Point of Care 274 mg/dL (70-110)
[2020-05-26] MEDS: atorvastatin 40 mg Tablet PO (21:37)
[2020-05-26] MEDS: aspirin 81 mg EC Tablet PO (21:37)
--- NOTE | 2020-05-26 21:50 | PC.NURSE ---
Patient's bed alarm went off. Patient was sitting on the side of the bed. Nurse and LOST CHARGE CARD CLERK went to assist patient to bedside commode. Patient was educated to use her call light before getting up to prevent a fall. Patient verbalized understanding. Call light is within reach and patient will be rounded on frequently.
[2020-05-27] VITALS (9 sets, daily range): BP systolic 129–168; BP diastolic 75–94; PULSE 120–130; RESP 18–28; TEMP 36.6–37.7; O2SAT 90–95
--- NOTE | 2020-05-27 06:33 | PC.NURSE ---
PT ASSISTED TO BSC X4. PT REEDUCATED TO PLEASE CALL FOR HELP BEFORE TRYING TO GET OUT OF BED. PT DENIES PAIN AT THIS TIME. WILL CONTINUE TO MONITOR.
[2020-05-27 06:38] LABS: Glucose Point of Care 184 mg/dL (70-110)
--- NOTE | 2020-05-27 07:00 | USCV_ITS ---
Daily Barreto Age: 85 Gender: F : 1935 Exam Date: 05/27/2020 15:16 Ordering Phys: Whitney Sadler MD ([email or web address]) Technologist: Jacob Reid Exam Location: [facility] [place] Indication: LV THROMBUS BP: 123 / 80 HR: 128 Rhythm: Sinus Technical Quality: Fair MEASUREMENTS (Male / Female) Normal Values 2D ECHO LV Ejection Fraction MOD 2C 47.7 % LV Ejection Fraction 2C AL 48.6 % FINDINGS Left Ventricle Right Ventricle Right Atrium Left Atrium Mitral Valve Aortic Valve Tricuspid Valve Pulmonic Valve Pericardium Aorta CONCLUSIONS 1. This is a limited echocardiogram with ultrasound enhancing agent (Optison). 2. Normal left ventricular size and systolic function. Left ventricular systolic function estimated at 55%. No regional wall motion abnormalities. Abnormal septal motion consistent with conduction abnormality. 3. No evidence of left ventricular apical thrombus. 4. Normal right ventricular size and systolic function. Whitney Sadler MD (Electronically Signed) Final Date: 27 May 2020 21:09 S
--- NOTE | 2020-05-27 07:00 | PC.NURSE ---
CONSTRUCTION TECHNOLOGY INSTRUCTOR DISCUSSED WITH DR. GRIFFIN PATIENT'S PERSISTENT ELEVATED HEART RATES IN 130'S. ORDERED TO GIVE IV DIGOXIN AND GIVE HER 100 MG DOSE OF METOPROLOL DUE AT 0900 NOW. ALSO, GET 12 LEAD EKG.
--- NOTE | 2020-05-27 07:03 | ECG_ITS ---
[facility] Test Date: 2020-05-27 Pat Name: Daily Barreto Department: Room: 104 Gender: Female Transmission Maintenance Supervisor: : 1935 Requested By: Whitney Sadler Order Number: [id number] Veronica MD: Whitney Sadler M.D. 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 [email or web address] community [email or web address] [facility] [id number]
[2020-05-27] MEDS: metoprolol tartrate 50 mg Tablet 100 MG PO ×2 (07:32→17:14)
[2020-05-27] MEDS: digoxin 250 mcg/ml INJ 2 mL IVP (07:32)
[2020-05-27] MEDS: apixaban 5 mg Tablet PO ×2 (09:05→22:11)
[2020-05-27] MEDS: amiodarone 200 mg Tablet 400 MG PO ×3 (13:27→22:11)
--- NOTE | 2020-05-27 14:47 | PM.PN ---
Subjective Subjective: Interval history: Patient continues to be tachycardic with heart rate 130s. Started on amiodarone today. Received digoxin yesterday additionally. No thickened change in heart rate thus far. Denies any complaints of chest pain dyspnea. This evening developed temperature of 100.3 Fahrenheit. Fever work-up initiated. Lower extremity edema continues to improve Medications: Reviewed: Yes Vitals/I&O/Wt Last Vital Signs Temp 99.8 F H 05/27/20 11:09 Pulse 126 H 05/27/20 11:09 Resp 26 H 05/27/20 11:09 BP 136/92 05/27/20 11:09 Pulse Ox 94 05/27/20 11:09 05/26/20 05/27/20 05/27/20 22:59 06:59 14:59 Intake Total 240 / 840 150 / 990 840 / 840 Output Total 1350 / 1950 200 / 2150 50 / 50 Balance -1110 / -1110 -50 / -1160 790 / 790 Physical Exam Narrative: EXAM NARRATIVE: GEN: Awake, alert and oriented, no acute distress CVS: S1S2 N RS: CTA B/L Abd: Soft, nt/nd , bs+ INTERNAL MEDICINE NURSE: no focal neuro deficits Extremities: Bilateral lower extremity edema, left greater than right, improved over previous exams Data : 05/24/20 06:00 05/26/20 04:34 A&P Assessment and plan (1) Atrial fibrillation with RVR: -Continues to be tachycardic with heart rate 120s to 130s Cardiology input appreciated, started on amiodarone 400 mg p.o. 3 times daily Received digoxin overnight and this morning. -Continue metoprolol 100 mg p.o. twice daily -Has a history of paroxysmal atrial fibrillation in the past -Continue Eliquis 5 mg p.o. -Echocardiogram with normal LVEF without any acute R WMA Status: Acute (2) NSTEMI (non-ST elevated myocardial infarction): -This is less likely. Troponins without significant delta. Patient denies any chest pain. No acute ST-T wave changes on EKG. -Continue aspirin 81 mg, atorvastatin -Started on metoprolol p.o. Status: Acute (3) CHF (congestive heart failure): This is improving. Lower extremity edema is better. Change Lasix to 40 mg p.o. daily Urine output over 24 hours at 1.8 L. Patient appearing with improved breathing, saturating 94% on room air. Status: Acute Qualifiers: Heart failure type: unspecified Heart failure chronicity: chronic Qualified Code(s): I50.9 - Heart failure, unspecified (4) Generalized weakness: Status: Acute (5) Hx of non-insulin dependent diabetes mellitus: Hemoglobin A1c currently at 7.6, consistent with diabetes mellitus. We will start Metformin upon discharge For now start on low-dose insulin sliding scale. Status: Acute (6) CVA (cerebral vascular accident): Patient's daughter is very concerned about cognitive slowing that they have noticed over the past [address] of the head upon admission showed small amount of ill-defined low density. As for the right frontal lobe and corpus callosum and right frontal lobe, worrisome for recent infarctions. This could perhaps be contributing to patient's cognitive decline. Echocardiogram without any noted thrombus. Carotid artery Doppler Doppler without any identifiable stenosis Patient has already been started on anticoagulation with Eliquis. No past history of strokes per daughter. Status: Acute Qualifiers: CVA mechanism: embolism Precerebral and cerebral artery: unspecified cerebral artery Qualified Code(s): I63.40 - Cerebral infarction due to embolism of unspecified cerebral artery (7) Fever: Developed fever today, T-max 100.3 Fahrenheit Initiate fever work-up with UA, chest x-ray, rapid Covid antigen, blood cultures. UA upon arrival was noted to be positive for nitrite and leuk esterase, however patient did not have any signs or symptoms consistent with UTI, more suggestive of asymptomatic bacteriuria. Now with development of fever would be appropriate to start patient on empiric antibiotic coverage. Recent urine culture from her primary care's office with Pseudomonas aeruginosa, will choose cefepime for treatment at this time. Status: Acute Attestations Medical Necessity Statement*: Needs rate control, new fever today. Coding Level of Care Code Acute Professor Of Industrial Technology for [facility] Kady Diagnoses Atrial fibrillation with RVR I48.91 NSTEMI (non-ST elevated myocardial infarction) I21.4 CHF (congestive heart failure) I50.9 Heart failure type: unspecified Heart failure chronicity: chronic Generalized weakness R53.1 Hx of non-insulin dependent diabetes mellitus Z86.39 CVA (cerebral vascular accident) I63.40 CVA mechanism: embolism Precerebral and cerebral artery: unspecified cerebral artery Fever R50.9
--- NOTE | 2020-05-27 14:55 | XR_ITS ---
WS: [id number] XR chest 1V portable [id number] REASON FOR EXAM: evaluate for pneumonia FINDINGS: The current examination does not have the degree of lung expansion as the previous examination and a prior examination from 04/22/2019. On the current study would be concerned of a developing reticular i nfiltrate in both lower lobes, a very common finding in the Covid positive elderly of multiple recent cases. Moderate tortuosity thoracic aorta. Normal heart size. No other interval change or new finding. XR/XR chest 1V portable [id number] IMPRESSION: Possible infiltrative change developing in the lower lobes as above..
[2020-05-27] MEDS: perflutren protein-a microsphr 0.22 mg/mL SDV 3 mL IV (15:25)
[2020-05-27] MEDS: cefepime 2,000 MG in sodium chloride 0.9% (plus) 50 ML 100 MG IV (15:44)
[2020-05-27 16:16] LABS: SARS Covid-2 Antigen Negative (Negative)
[2020-05-27 16:18] LABS: Basophils # 0.1 10^3/uL (0.0-0.1); Basophils % 0.4 %; Eosinophils % 0.1 %; Hematocrit 47.4 % (37.0-47.0); Hemoglobin 15.5 g/dL (11.5-15.3); Lymphocytes # 1.3 10^3/uL (0.8-4.8); Lymphocytes % 9.4 %; Mean Corpuscular HGB Conc 32.7 g/dL (30.0-36.0); Mean Corpuscular Hemoglobin 29.1 pg (28.0-34.0); Mean Corpuscular Volume 88.9 fL (81-99); Mean Platelet Volume 9.6 fL (7.4-10.4); Monocytes # 1.1 10^3/uL (0.2-0.9); Monocytes % 8.1 %; Neutrophils # 11.06 10^3/uL (1.8-7.7); Neutrophils % 80.4 %; Nucleated Red Blood Cells % 0 %; Platelet Count 420 10^3/cmm (130-400); Red Blood Count 5.33 10^6/uL (4.1-5.3); Red Cell Distribution Width 13.4 % (12.1-15.1); White Blood Count 13.8 10^3/uL (4.0-10.0)
[2020-05-27 16:40] LABS: Glucose Point of Care 241 mg/dL (70-110)
[2020-05-27 17:01] LABS: Glucose Point of Care 298 mg/dL (70-110)
[2020-05-27 17:08] LABS: Procalcitonin 0.21 ng/mL (0-0.5)
[2020-05-27 17:19] LABS: Alanine Aminotransferase 11 U/L (0-33); Albumin Level 3.7 g/dL (3.5-5.2); Alkaline Phosphatase 106 IU/L (35-105); Anion Gap 17.2 (5-19); Aspartate Amino Transferase 15 U/L (0-32); Blood Urea Nitrogen 27 mg/dL (8-23); Carbon Dioxide 21 mmol/L (22-29); Chloride 96 mmol/L (98-107); Globulin 3.4 g/dL (1.3-4.6); Glucose 274 mg/dL (65-115); Osmolality Calculated 285 mOsm/kg (285-295); Potassium 4.2 mmol/L (3.5-5.1); Sodium 130 mmol/L (136-145); Total Bilirubin 0.7 mg/dL (0.15-1.2); Total Protein 7.1 g/dL (6.6-8.7)
--- NOTE | 2020-05-27 17:51 | PC.NURSE ---
PATIENT NOTED TO HAVE MILD FEVERS THIS SHIFT. DISCUSSED WITH DR. WHITTAKER. NOTED INCREASED GENERALIZED WEAKNESS, DISCUSSED WITH PHYSICAL THERAPY. DISCUSSED ALL GOALS OF CARE WITH DAUGHTER, ALEJANDRA.
[2020-05-27 18:12] LABS: Add Urine Microscopic? YES; Bilirubin Urine Neg (Negative); Blood Urine Trace (Negative); Glucose Urine UA 2+ (Normal); Ketones Urine Negative (Negative); Leukocyte Esterase Urine 1+ (Negative); Nitrate Urine Negative (Negative); Protein Urine 1+ (Negative); Specific Gravity, Urine 1.015 (1.005-1.030); Urine Appearance Cloudy (CLEAR); Urine Color Yellow (Yellow); Urobilinogen Urine Norm (Negative); pH Urine 5 (5-7)
--- NOTE | 2020-05-27 18:24 | PM.PN ---
Subjective Subjective: Interval history: Patient denies any complaint. In spite of receiving digoxin, patient remains in atrial flutter/tachycardia with rapid ventricular response. No chest pain shortness of breath or palpitation. Medications: Reviewed: Yes Medication Review Details: Current Medications Acetaminophen (Tylenol) 650 mg PO Q6H PRN PRN Reason: Mild/Mod Pain Or Temp >/= 101 Albuterol Sulfate (Albuterol) 2.5 mg INHALATION Q4H.RESPIRATORY PRN PRN Reason: SHORTNESS OF BREATH Amiodarone HCl (Amiodarone 200 Mg Tablet) 400 mg PO TID [facility] Last Admin: 05/27/20 14:17 Dose: Not Given Documented by: Apixaban (Eliquis) 5 mg PO Q12H [facility] Last Admin: 05/27/20 09:05 Dose: 5 mg Documented by: Aspirin (Aspirin Ec) 81 mg PO Q24H [facility] Last Admin: 05/26/20 21:37 Dose: 81 mg Documented by: Atorvastatin Calcium (Lipitor) 40 mg PO BEDTIME [facility] Last Admin: 05/26/20 21:37 Dose: 40 mg Documented by: Dextrose (D50w) 25 ml IVP ONCE PRN; Protocol PRN Reason: hypoglycemia protocol Dextrose (D50w) 50 ml IVP PRN PRN; Protocol PRN Reason: hypoglycemia protocol Furosemide (Furosemide 40 Mg Tablet) 40 mg PO DAILY@0800 [facility] Glucagon (Glucagen) 1 mg IM ONCE PRN; Protocol PRN Reason: Adult Acute Hypoglycemia Prot. Diltiazem HCl 125 mg/ Sodium (Chloride) 125 mls @ 0 mls/hr IV .Q0M [facility]; Protocol Last Titration: 05/25/20 19:33 Dose: Infused Documented by: Dextrose (D5w) 500 mls @ 100 mls/hr IV ONCE PRN; Protocol PRN Reason: Adult Acute Hypoglycemia Prot Cefepime HCl 2,000 mg/ Sodium (Chloride) 50 mls @ 100 mls/hr IV Q12H [facility]; Protocol Last Admin: 05/27/20 15:44 Dose: 100 mls/hr Documented by: Insulin Aspart (Novolog) 0 unit SUBCUT WM&BEDTIME [facility]; Protocol Last Admin: 05/27/20 17:14 Dose: 6 unit Documented by: Metoprolol Tartrate (Lopressor) 100 mg PO BID [facility] Last Admin: 05/27/20 17:14 Dose: 100 mg Documented by: Ondansetron HCl (Zofran) 4 mg IVP Q6H PRN PRN Reason: NAUSEA AND VOMITING Vitals/I&O/Wt Last Vital Signs Temp 99.4 F 05/27/20 16:00 Pulse 126 H 05/27/20 16:00 Resp 18 05/27/20 16:00 BP 168/94 05/27/20 16:00 Pulse Ox 92 05/27/20 16:00 05/27/20 05/27/20 05/27/20 06:59 14:59 22:59 Intake Total 150 / 990 840 / 840 Output Total 200 / 2150 50 / 50 Balance -50 / -1160 790 / 790 Physical Exam Narrative: EXAM NARRATIVE: Gen: obese woman sitting in bed, NAD Neck: No JVD appreciated RS: CTAB/L CVS: S1, S2 regular, tachycardia +, No murmur , rub or gallop appreciated. COPS: AA and oriented to self, hard of hearing. weakness in left lower extremity Ext: trace-1+ bilateral edema Skin: No rash. Data : 05/27/20 15:50 05/27/20 15:50 Micro: Microbiology 05/27/20 15:50 Blood Culture - Preliminary Blood SPECIMEN COLLECTED 05/27/20 15:55 Blood Culture - Preliminary Blood SPECIMEN COLLECTED A&P Assessment and plan (1) Atrial flutter with rapid ventricular response: Patient remains in atrial flutter with RVR. -started on digoxin, BP soft. -echo TDS but with normal LV function and no diagnostic RWMA. -continue Eliquis 5 mg twice a day. I had a long discussion with patient and his daughter Kenya and after a long discussion it was decided to proceed with SCHUYLER cardioversion tomorrow. Detailed discussion about risks and benefits and alternate management options were discussed with the patient. She is agreeable to proceed with same. Status: Acute (2) CHF (congestive heart failure): -hold off on iv lasix. change to lasix 40 PO tomorrow. Status: Acute Qualifiers: Heart failure type: unspecified Heart failure chronicity: chronic Qualified Code(s): I50.9 - Heart failure, unspecified (3) Hx of non-insulin dependent diabetes mellitus: Status: Acute (4) Generalized weakness: Status: Acute Additional A&P Information NSTEMI type 2 in setting of decompensated CHF and atrial flutter with RVR CVA: on ASA and statin h/o paroxysmal atrial fibrillation: previously followed with Dr. Gross and stopped Eliquis in September Thank you for allowing me to participate in patient's care. Please feel free to call with questions or concerns. Attestations Medical Necessity Statement*: Needs hospital stay for CVA and atrial flutter with RVR Time Spent in Patient Care: Greater than 35 minutes (>than 50% of time spent in counselling and/or direct pt care on unit). 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
[2020-05-27 18:44] LABS: Add Urine Culture? Yes; Amorphous Sediment Urine 1+ /hpf; Bacteria Urine 3+ /hpf; RBC Urine 0-4 /hpf (0-2)
--- NOTE | 2020-05-27 18:52 | PC.NURSE ---
VOIDS PATIENT HAS HAD 5-6 LARGE VOIDS, HOWEVER, THE PATIENT IS INCONTINENT IN HER BRIEF BY THE TIME SHE HAS MADE IT TO THE BEDSIDE COMMODE. THIS HAS MADE IT IMPOSSIBLE TO ACCURATELY MEASURE HER URINE OUTPUT.
--- NOTE | 2020-05-27 19:02 | PC.NURSE ---
[id number] Dr hartman on unit for assessment and Discussion of plan of care with family verbal instructions to give PO amioderone 400 mg pO now and give the 2100 dose at close to 2200
--- NOTE | 2020-05-27 19:56 | PC.NURSE ---
Attempted with 2 assist twice to get patient to bedside commode. Patient would stand and would not move toward bedside commode. Patient appears to be too weak to get to bedside commode. Bedpan was used with 2 assist. Bed alarm is set.
[2020-05-27 20:40] LABS: Glucose Point of Care 346 mg/dL (70-110)
[2020-05-27] MEDS: aspirin 81 mg EC Tablet PO (22:11)
[2020-05-27] MEDS: atorvastatin 40 mg Tablet PO (22:11)
[2020-05-28] VITALS (10 sets, daily range): BP systolic 94–147; BP diastolic 66–106; PULSE 100–122; RESP 16–24; TEMP 36.3–36.9; O2SAT 91–97
--- NOTE | 2020-05-28 02:34 | PC.NURSE ---
Patient has been assisted onto bedpan 23 times so far this shift with 2 assist. Patient's skin and allison area cleansed each time. Absorbant pad under patient replaced with dry one 9 times so far this shift.
[2020-05-28] MEDS: cefepime 2,000 MG in sodium chloride 0.9% (plus) 50 ML 100 MG IV ×2 (03:30→15:30)
[2020-05-28] MEDS: dilTIAZem 30 mg Tablet PO (05:02)
--- NOTE | 2020-05-28 05:06 | PC.NURSE ---
Bed alarm is set.
[2020-05-28 05:32] LABS: Basophils # 0.1 10^3/uL (0.0-0.1); Basophils % 0.7 %; Eosinophils # 0.1 10^3/uL (0.0-0.8); Eosinophils % 0.5 %; Hematocrit 42.2 % (37.0-47.0); Hemoglobin 13.6 g/dL (11.5-15.3); Lymphocytes % 21.3 %; Mean Corpuscular HGB Conc 32.2 g/dL (30.0-36.0); Mean Corpuscular Hemoglobin 28.3 pg (28.0-34.0); Mean Corpuscular Volume 87.9 fL (81-99); Mean Platelet Volume 9.8 fL (7.4-10.4); Monocytes # 1.1 10^3/uL (0.2-0.9); Monocytes % 11.9 %; Neutrophils # 5.83 10^3/uL (1.8-7.7); Neutrophils % 63.8 %; Nucleated Red Blood Cells % 0 %; Platelet Count 282 10^3/cmm (130-400); Red Cell Distribution Width 13.4 % (12.1-15.1); White Blood Count 9.1 10^3/uL (4.0-10.0)
[2020-05-28 06:05] LABS: Magnesium 1.9 mg/dL (1.7-2.3)
[2020-05-28 06:09] LABS: Alanine Aminotransferase 9 U/L (0-33); Albumin Level 3.2 g/dL (3.5-5.2); Alkaline Phosphatase 84 IU/L (35-105); Anion Gap 15.9 (5-19); Aspartate Amino Transferase 14 U/L (0-32); Blood Urea Nitrogen 24 mg/dL (8-23); Calcium 8.7 mg/dL (8.5-10.5); Carbon Dioxide 24 mmol/L (22-29); Chloride 101 mmol/L (98-107); Globulin 2.9 g/dL (1.3-4.6); Glucose 187 mg/dL (65-115); Osmolality Calculated 293 mOsm/kg (285-295); Potassium 3.9 mmol/L (3.5-5.1); Sodium 137 mmol/L (136-145); Total Bilirubin 0.6 mg/dL (0.15-1.2); Total Protein 6.1 g/dL (6.6-8.7)
[2020-05-28 06:30] LABS: Glucose Point of Care 177 mg/dL (70-110)
--- NOTE | 2020-05-28 07:22 | CT_ITS ---
WS: [id number] CT HEAD TECHNIQUE: Noncontrast CT of the head obtained from the skullbase to the vertex. CLINICAL INFORMATION: Evaluate for CVA COMPARISON: May 23, 2020 DLP: 763.[address] scans at [facility] use at least one of these dose optimization techniques: automat ed exposure control; mA and/or kV adjustment per patient size (includes targeted exams where dose is matched to clinical indication); or iterative reconstruction. FINDINGS: No evidence of intracranial hemorrhage or mass effect. Ventricular system and basal cisterns are catalan nt. Mild small vessel changes with moderate parenchymal volume loss. No extra-axial fluid collections . Again seen is low-attenuation change suspicious for subacute ischemia involving the parasagittal ri ght frontal lobe extending to the cortex, parasagittal inferior right frontal lobe, and genu of the c orpus callosum eccentric to the right. This is slightly progressed compared to previous. No mass effe ct or midline shift. No hydrocephalus. Paranasal sinuses and mastoid air cells are well aerated. .Normal visualized soft tissues. CT/CT head wo con* [id number] IMPRESSION: 1. Suspected subacute ischemia involving the right frontal lobe with patchy lo w-attenuation change with additional foci involving the genu of the corpus call osum eccentric to the right. Low-attenuation change appears slightly progressed in some areas compared to previous. This can be further evaluated with MRI. 2. No intracranial hemorrhage. 3. No hydrocephalus. 4. Mild small vessel changes with moderate parenchymal volume loss.
--- NOTE | 2020-05-28 07:44 | PC.NURSE ---
CATHETER DISCUSSED WITH DR. WHITTAKER THE PATIENT'S INCREASED GENERALIZED WEAKNESS AND NEED FOR CONSTANT VOIDING. PATIENT HAS BEEN INCONTINENT AND ACCURATE URINARY OUTPUT HAS NOT BEEN ABLE TO BE ACHIEVED. DR. WHITTAKER ORDERED FOR A BIRCH CATHETER TO BE PLACED AND ALSO FOR A CT SCAN ON THE PATIENT'S HEAD. PLACING THE PATIENT'S BIRCH CATHETER WAS MILDLY DIFFICULT WITH 16 TAMAZIGHT TRAY. THIS NURSE HAD TO REPERFORM STERILE TECHNIQUE AND PLACED A 14 TAMAZIGHT BIRCH CATHETER SUCCESSFULLY.
[2020-05-28] MEDS: metoprolol tartrate 50 mg Tablet 100 MG PO ×2 (08:46→18:22)
[2020-05-28] MEDS: FUROsemide 40 mg Tablet PO (08:46)
[2020-05-28] MEDS: apixaban 5 mg Tablet PO ×2 (08:46→21:24)
[2020-05-28] MEDS: amiodarone 200 mg Tablet 400 MG PO ×3 (08:46→21:23)
--- NOTE | 2020-05-28 09:18 | DCPLANNER ---
IMM completed 05/28/2020 @ 0910. Copy of rights given to pt.
--- NOTE | 2020-05-28 10:15 | PM.PN ---
Subjective Subjective: Interval history: Patient denies any complaint. In spite of receiving digoxin, metoprolol and amiodarone, patient remains in atypical atrial flutter/tachycardia with rapid ventricular response. No chest pain shortness of breath or palpitation. She had some progression of her weakness and underwent CT head this morning. Medications: Reviewed: Yes Medication Review Details: Current Medications Acetaminophen (Tylenol) 650 mg PO Q6H PRN PRN Reason: Mild/Mod Pain Or Temp >/= 101 Albuterol Sulfate (Albuterol) 2.5 mg INHALATION Q4H.RESPIRATORY PRN PRN Reason: SHORTNESS OF BREATH Amiodarone HCl (Amiodarone 200 Mg Tablet) 400 mg PO TID [facility] Last Admin: 05/27/20 14:17 Dose: Not Given Documented by: Apixaban (Eliquis) 5 mg PO Q12H [facility] Last Admin: 05/27/20 09:05 Dose: 5 mg Documented by: Aspirin (Aspirin Ec) 81 mg PO Q24H [facility] Last Admin: 05/26/20 21:37 Dose: 81 mg Documented by: Atorvastatin Calcium (Lipitor) 40 mg PO BEDTIME [facility] Last Admin: 05/26/20 21:37 Dose: 40 mg Documented by: Dextrose (D50w) 25 ml IVP ONCE PRN; Protocol PRN Reason: hypoglycemia protocol Dextrose (D50w) 50 ml IVP PRN PRN; Protocol PRN Reason: hypoglycemia protocol Furosemide (Furosemide 40 Mg Tablet) 40 mg PO DAILY@0800 [facility] Glucagon (Glucagen) 1 mg IM ONCE PRN; Protocol PRN Reason: Adult Acute Hypoglycemia Prot. Diltiazem HCl 125 mg/ Sodium (Chloride) 125 mls @ 0 mls/hr IV .Q0M [facility]; Protocol Last Titration: 05/25/20 19:33 Dose: Infused Documented by: Dextrose (D5w) 500 mls @ 100 mls/hr IV ONCE PRN; Protocol PRN Reason: Adult Acute Hypoglycemia Prot Cefepime HCl 2,000 mg/ Sodium (Chloride) 50 mls @ 100 mls/hr IV Q12H [facility]; Protocol Last Admin: 05/27/20 15:44 Dose: 100 mls/hr Documented by: Insulin Aspart (Novolog) 0 unit SUBCUT WM&BEDTIME [facility]; Protocol Last Admin: 05/27/20 17:14 Dose: 6 unit Documented by: Metoprolol Tartrate (Lopressor) 100 mg PO BID [facility] Last Admin: 05/27/20 17:14 Dose: 100 mg Documented by: Ondansetron HCl (Zofran) 4 mg IVP Q6H PRN PRN Reason: NAUSEA AND VOMITING Vitals/I&O/Wt Last Vital Signs Temp 98.3 F 05/28/20 08:00 Pulse 122 H 05/28/20 08:00 Resp 20 H 05/28/20 08:00 BP 101/66 05/28/20 08:00 Pulse Ox 94 05/28/20 08:00 05/27/20 05/28/20 05/28/20 22:59 06:59 14:59 Intake Total 170 / 1010 100 / 1110 Output Total 200 / 250 Balance -30 / 760 100 / 860 Physical Exam Narrative: EXAM NARRATIVE: Gen: obese woman sitting in bed, NAD Neck: No JVD appreciated RS: CTAB/L CVS: S1, S2 regular, tachycardia +, No murmur , rub or gallop appreciated. OPERATIONS ARCHITECT: AA and oriented to self, hard of hearing. weakness in left lower extremity Ext: trace-1+ bilateral edema Skin: No rash. Urinary Catheter Management^: Carranza: Cath Placed During This Visit: yes Reason for Continuing Indwelling Catheter: Accurate Measurement of Urinary Output in Critically Ill Patients Urinary Catheter Date of Insertion: 05/28/20 Urinary Catheter Time of Insertion: 07:43 Data : 05/28/20 04:50 05/28/20 04:50 Micro: Microbiology 05/27/20 15:50 Blood Culture - Preliminary Blood SPECIMEN COLLECTED 05/27/20 15:55 Blood Culture - Preliminary Blood SPECIMEN COLLECTED CT Head: Radiologist's impression: IMPRESSION: 1. Suspected subacute ischemia involving the right frontal lobe with patchy low-attenuation change with additional foci involving the genu of the corpus callosum eccentric to the right. Low-attenuation change appears slightly progressed in some areas compared to previous. This can be further evaluated with MRI. 2. No intracranial hemorrhage. 3. No hydrocephalus. 4. Mild small vessel changes with moderate parenchymal volume loss. Echo: I personally reviewed and interpreted this imaging study as follows: My impression: CONCLUSIONS 1. This is a limited echocardiogram with ultrasound enhancing agent (Optison). 2. Normal left ventricular size and systolic function. Left ventricular systolic function estimated at 55%. No regional wall motion abnormalities. Abnormal septal motion consistent with conduction abnormality. 3. No evidence of left ventricular apical thrombus. 4. Normal right ventricular size and systolic function. A&P Assessment and plan (1) Atrial flutter with rapid ventricular response: Atypical atrial flutter ; patient has h/o paroxysmal atrial fibrillation -Patient remains in atrial flutter with RVR. -continue digoxin, metoprolol and amiodarone 400 mg PO TID. -continue Eliquis 5 mg twice a day. -Given progression of her CVA, I will hold off on SCHUYLER/Cv. I will continue with medical mangement with plan for SCHUYLER/Cv if needed as an outpatient. Status: Acute (2) CHF (congestive heart failure): -continue lasix 40 for now. Status: Acute Qualifiers: Heart failure chronicity: chronic Heart failure type: unspecified Qualified Code(s): I50.9 - Heart failure, unspecified (3) Hx of non-insulin dependent diabetes mellitus: Status: Acute (4) Generalized weakness: Status: Acute Additional A&P Information NSTEMI type 2 in setting of decompensated CHF and atrial flutter with RVR CVA: on ASA and statin h/o paroxysmal atrial fibrillation: previously followed with Dr. Gross and stopped Eliquis in September Thank you for allowing me to participate in patient's care. Please feel free to call with questions or concerns. 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
[2020-05-28 10:43] LABS: Glucose Point of Care 170 mg/dL (70-110)
--- NOTE | 2020-05-28 12:40 | PM.PN ---
Subjective Subjective: Interval history: Per nursing report from overnight and this morning, patient was noted to be significantly weaker compared to yesterday. Per she is alert and full extremities while laying in bed, her gait was noted to be shuffling, from being independent yesterday morning she was now requiring up to two person assist. Mentation overall remains unchanged from before. She underwent a CT of the head which to exclude any new CVA or hemorrhagic event since she is on anticoagulation. The study showed subacute ischemia involving the right frontal lobe with patchy low-attenuation change and additional foci involving the genu of the corpus callosum which appears slightly progressed in 7 areas compared to the previous. Follow-up MRI has been ordered. There is no hydrocephalus. Carranza catheter was additionally inserted this morning as patient was incontinent and having a hard time transferring from bed to bedside commode. She does still need accurate intake and output assessment. 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 No facial deficits are noted. Urinary Catheter Management^: Carranza: Cath Placed During This Visit: yes Reason for Continuing Indwelling Catheter: Accurate Measurement of Urinary Output in Critically Ill Patients Urinary Catheter Date of Insertion: 05/28/20 Urinary Catheter Time of Insertion: 07:43 Data : 05/28/20 04:50 05/28/20 04:50 Micro: Microbiology 05/27/20 15:50 Blood Culture - Preliminary Blood SPECIMEN COLLECTED 05/27/20 15:55 Blood Culture - Preliminary Blood SPECIMEN COLLECTED A&P Assessment and plan (1) Atrial fibrillation with RVR: -Continues to be tachycardic with heart rate 120s Cardiology input appreciated, started on amiodarone 400 mg p.o. 3 times daily -Continue metoprolol 100 mg p.o. twice daily -Has a history of paroxysmal atrial fibrillation in the past -Continue Eliquis 5 mg p.o. -Echocardiogram with normal LVEF without any acute R WMA Patient was originally planned for SCHUYLER with cardioversion today, however given the reported neurological status changes overnight and somewhat progressive changes noted on CT of the head, this has now been deferred. Discussed with cardiology. Status: Acute (2) NSTEMI (non-ST elevated myocardial infarction): -This is less likely. Troponins without significant delta. Patient denies any chest pain. No acute ST-T wave changes on EKG. -Continue aspirin 81 mg, atorvastatin -Started on metoprolol p.o. Status: Acute (3) CHF (congestive heart failure): This is improving. Lower extremity edema is better. Continue Lasix 40 mg p.o. daily Urine output over 24 hours at 1.1 L. Saturating 97% on room air, creatinine is stable Status: Acute Qualifiers: Heart failure type: unspecified Heart failure chronicity: chronic Qualified Code(s): I50.9 - Heart failure, unspecified (4) Generalized weakness: Status: Acute (5) Hx of non-insulin dependent diabetes mellitus: Hemoglobin A1c currently at 7.6, consistent with diabetes mellitus. We will start Metformin upon discharge For now start on low-dose insulin sliding scale. Status: Acute (6) CVA (cerebral vascular accident): Patient's daughter is very concerned about cognitive slowing that they have noticed over the past [address] of the head upon admission showed small amount of ill-defined low density. As for the right frontal lobe and corpus callosum and right frontal lobe, worrisome for recent infarctions. This could perhaps be contributing to patient's cognitive decline. Echocardiogram without any noted thrombus. Carotid artery Doppler Doppler without any identifiable stenosis Patient has already been started on anticoagulation with Eliquis. No past history of strokes per daughter. Notable changes and muscle weakness that was noted by overnight shifts and again this morning, she had a repeat CT at this morning which shows progression of the stroke changes that were seen on 05 23. I did briefly discuss the CAT scan findings today with Dr. Hays and compared to the previous ones. Overall it appears that the original strokes have had some evolution with surrounding edema, this is not unexpected. Also expected to have some waxing and waning changes in gait and cognitive changes with the strokes. Alcohol level discussed with the daughter, she remains concerned. We will plan for MRI today Status: Acute Qualifiers: CVA mechanism: embolism Precerebral and cerebral artery: unspecified cerebral artery Qualified Code(s): I63.40 - Cerebral infarction due to embolism of unspecified cerebral artery (7) Fever: This is now resolved UA with 5-10 WBCs, trace urine blood, negative nitrates, 1+ leuk esterase, urine culture pending. chest x-ray with poor inspiratory film, possible reticular infiltrates Rapid Covid antigen negative on 05/27 UA upon arrival was noted to be positive for nitrite and leuk esterase, however patient did not have any signs or symptoms consistent with UTI at the time. Now with development of fever has been started on empiric antibiotic coverage. Recent urine culture from her primary care's office with Pseudomonas aeruginosa, will choose cefepime for treatment at this time. 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
--- NOTE | 2020-05-28 12:56 | MRR_ITS ---
PROCEDURE INFORMATION: Exam: MR Head Without Contrast Exam date and time: 05/28/2020 1:47 PM Age: 85 years old Clinical indication: Weakness, extremity; Additional info: CVA TECHNIQUE: Imaging protocol: MR of the head without contrast. COMPARISON: CT head wo con* [id number] 05/28/2020 9:21 AM FINDINGS: Limitations: The study is limited by mild patient motion artifact. Brain: There is restricted diffusion in a gyriform pattern demonstrated in the parasagittal portion of the right frontal lobe. This area demonstrates loss of signal on correlatives ADC map images, is consistent with acute infarct. The involved area measures approximately 3 cm AP x 1.5 cm transverse x 2.5 cm craniocaudal. Moderate parenchymal volume loss noted. There is decreased attenuation of the periventricular white matter, consistent with moderate microangiopathic chronic white matter disease. Cerebral ventricles: The ventricles are proportional to the sulci. No hydrocephalus is noted. Bones/joints: Unremarkable. Paranasal sinuses: The paranasal sinuses, as demonstrated, appear clear. Mastoid air cells: The mastoid air cells are clear bilaterally. Orbits: No acute abnormality of the orbits demonstrated. Soft tissues: The soft tissues appear unremarkable. MR/MR head wo con* [id number] IMPRESSION: 1. The study is limited by mild patient motion artifact. 2. Acute infarct demonstrated in the parasagittal portion of the right frontal lobe. No associated hemorrhage. This correlates to the findings of CT head of 05/28/2020. 3. No additional acute infarcts are demonstrated.
[2020-05-28 16:37] LABS: Glucose Point of Care 221 mg/dL (70-110)
[2020-05-28 20:31] LABS: Glucose Point of Care 214 mg/dL (70-110)
[2020-05-28] MEDS: aspirin 81 mg EC Tablet PO (21:23)
[2020-05-28] MEDS: atorvastatin 40 mg Tablet PO (21:24)
[2020-05-29] VITALS (9 sets, daily range): BP systolic 97–116; BP diastolic 68–75; PULSE 109–120; RESP 15–21; TEMP 36–36.8; O2SAT 90–94
[2020-05-29] MEDS: cefepime 2,000 MG in sodium chloride 0.9% (plus) 50 ML 100 MG IV ×2 (04:48→15:07)
[2020-05-29 05:40] LABS: Basophils # 0.1 10^3/uL (0.0-0.1); Basophils % 0.8 %; Eosinophils # 0.1 10^3/uL (0.0-0.8); Eosinophils % 1.2 %; Hemoglobin 13.8 g/dL (11.5-15.3); Lymphocytes # 2.4 10^3/uL (0.8-4.8); Lymphocytes % 25.5 %; Mean Corpuscular HGB Conc 32.1 g/dL (30.0-36.0); Mean Corpuscular Hemoglobin 28.5 pg (28.0-34.0); Mean Corpuscular Volume 88.7 fL (81-99); Mean Platelet Volume 9.8 fL (7.4-10.4); Monocytes # 0.9 10^3/uL (0.2-0.9); Monocytes % 9.2 %; Neutrophils # 5.77 10^3/uL (1.8-7.7); Neutrophils % 61.9 %; Nucleated Red Blood Cells % 0 %; Platelet Count 316 10^3/cmm (130-400); Red Blood Count 4.85 10^6/uL (4.1-5.3); Red Cell Distribution Width 13.6 % (12.1-15.1); White Blood Count 9.3 10^3/uL (4.0-10.0)
[2020-05-29 05:53] LABS: Alanine Aminotransferase 13 U/L (0-33); Albumin Level 3.2 g/dL (3.5-5.2); Alkaline Phosphatase 86 IU/L (35-105); Anion Gap 14.9 (5-19); Aspartate Amino Transferase 21 U/L (0-32); Blood Urea Nitrogen 25 mg/dL (8-23); Calcium 8.8 mg/dL (8.5-10.5); Carbon Dioxide 25 mmol/L (22-29); Chloride 102 mmol/L (98-107); Glucose 174 mg/dL (65-115); Osmolality Calculated 295 mOsm/kg (285-295); Potassium 3.9 mmol/L (3.5-5.1); Sodium 138 mmol/L (136-145); Total Bilirubin 0.5 mg/dL (0.15-1.2); Total Protein 6.2 g/dL (6.6-8.7)
--- NOTE | 2020-05-29 06:00 | PC.NURSE ---
PT RESTING IN BED. PT DENIES PAIN. WILL CONTINUE TO MONITOR.
[2020-05-29 07:01] LABS: Glucose Point of Care 153 mg/dL (70-110)
[2020-05-29] MEDS: FUROsemide 40 mg Tablet PO (07:55)
[2020-05-29] MEDS: apixaban 5 mg Tablet PO ×2 (09:00→20:35)
[2020-05-29] MEDS: amiodarone 200 mg Tablet 400 MG PO ×3 (09:00→20:36)
[2020-05-29] MEDS: metoprolol tartrate 50 mg Tablet 100 MG PO ×2 (09:00→17:38)
--- NOTE | 2020-05-29 10:26 | PC.OT ---
PER HEART TO HEART, PATIENT HAS MET GOALS. OK FROM DOCTOR TO DISCHARGE OT.
--- NOTE | 2020-05-29 11:32 | P.PN_ITS ---
Subjective Subjective: Interval history: Patient denies any complaint. In spite of receiving digoxin, metoprolol and amiodarone, patient remains in atypical atrial flutter/tachycardia with rapid ventricular response. No chest pain shortness of breath or palpitation. She had some progression of her weakness and underwent CT head this morning. Medications: Reviewed: Yes Medication Review Details: Current Medications Acetaminophen (Tylenol) 650 mg PO Q6H PRN PRN Reason: Mild/Mod Pain Or Temp >/= 101 Albuterol Sulfate (Albuterol) 2.5 mg INHALATION Q4H.RESPIRATORY PRN PRN Reason: SHORTNESS OF BREATH Amiodarone HCl (Amiodarone 200 Mg Tablet) 400 mg PO TID [facility] Last Admin: 05/29/20 14:57 Dose: 400 mg Documented by: Apixaban (Eliquis) 5 mg PO Q12H [facility] Last Admin: 05/29/20 09:00 Dose: 5 mg Documented by: Aspirin (Aspirin Ec) 81 mg PO Q24H [facility] Last Admin: 05/28/20 21:23 Dose: 81 mg Documented by: Atorvastatin Calcium (Lipitor) 40 mg PO BEDTIME [facility] Last Admin: 05/28/20 21:24 Dose: 40 mg Documented by: Dextrose (D50w) 25 ml IVP ONCE PRN; Protocol PRN Reason: hypoglycemia protocol Dextrose (D50w) 50 ml IVP PRN PRN; Protocol PRN Reason: hypoglycemia protocol Digoxin (Digoxin 125 Mcg Tablet) 125 mcg PO DAILY [facility] Last Admin: 05/29/20 11:48 Dose: 125 mcg Documented by: Furosemide (Furosemide 40 Mg Tablet) 40 mg PO DAILY@0800 [facility] Last Admin: 05/29/20 07:55 Dose: 40 mg Documented by: Glucagon (Glucagen) 1 mg IM ONCE PRN; Protocol PRN Reason: Adult Acute Hypoglycemia Prot. Dextrose (D5w) 500 mls @ 100 mls/hr IV ONCE PRN; Protocol PRN Reason: Adult Acute Hypoglycemia Prot Cefepime HCl 2,000 mg/ Sodium (Chloride) 50 mls @ 100 mls/hr IV Q24H [facility]; Protocol Last Admin: 05/29/20 15:07 Dose: 100 mls/hr Documented by: Insulin Aspart (Novolog) 0 unit SUBCUT WM&BEDTIME [facility]; Protocol Last Admin: 05/29/20 17:38 Dose: 4 unit Documented by: Metoprolol Tartrate (Lopressor) 100 mg PO BID TEVIN Last Admin: 05/29/20 17:38 Dose: 100 mg Documented by: Ondansetron HCl (Zofran) 4 mg IVP Q6H PRN PRN Reason: NAUSEA AND VOMITING Vitals/I&O/Wt Last Vital Signs Temp 97.4 F L 05/29/20 10:48 Pulse 114 H 05/29/20 10:48 Resp 20 H 05/29/20 10:48 BP 105/70 05/29/20 10:48 Pulse Ox 93 05/29/20 10:48 05/28/20 05/29/20 05/29/20 22:59 06:59 14:59 Intake Total 50 / 290 50 / 340 240 / 240 Output Total 1100 / 1999 450 / 2450 Balance -1050 / -1710 -400 / -2110 240 / 240 Physical Exam Narrative: EXAM NARRATIVE: Gen: obese woman sitting in bed, NAD Neck: No JVD appreciated RS: CTAB/L CVS: S1, S2 regular, tachycardia +, No murmur , rub or gallop appreciated. 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 weakness in left lower extremity Ext: trace-1+ bilateral edema Skin: No rash. Urinary Catheter Management^: Carranza: Cath Placed During This Visit: yes Reason for Continuing Indwelling Catheter: Accurate Measurement of Urinary Output in Critically Ill Patients Urinary Catheter Date of Insertion: 05/28/20 Urinary Catheter Time of Insertion: 07:43 Data : 05/29/20 04:58 05/29/20 04:58 Micro: Microbiology 05/27/20 15:55 Blood Culture - Preliminary Blood NEGATIVE TO DATE 05/27/20 15:50 Blood Culture - Preliminary Blood NEGATIVE TO DATE A&P Assessment and plan (1) Atrial flutter with rapid ventricular response: Atypical atrial flutter ; patient has h/o paroxysmal atrial fibrillation -Patient remains in atrial flutter with RVR. -continue digoxin, metoprolol and amiodarone 400 mg PO TID. change to amiodarone 400 mg PO BID for 7 day and then 400 mg Po BID x 2 days and then 200 mg daily. -continue Eliquis 5 mg twice a day. -f/u on Dig level, if high decrease digoxin to 62.5 mcg everyday. -Given progression of her CVA, I will hold off on SCHUYLER/Cv. I will continue with medical mangement with plan for SCHUYLER/Cv if needed as an outpatient. -f/u with me in office in 3-4 weeks Status: Acute (2) CHF (congestive heart failure): -continue lasix 40 for now. Status: Acute Qualifiers: Heart failure type: unspecified Heart failure chronicity: chronic Qualified Code(s): I50.9 - Heart failure, unspecified (3) Hx of non-insulin dependent diabetes mellitus: Status: Acute (4) Generalized weakness: Status: Acute Additional A&P Information NSTEMI type 2 in setting of decompensated CHF and atrial flutter with RVR CVA: on ASA and statin h/o paroxysmal atrial fibrillation: previously followed with Dr. Gross and stopped Eliquis in September Thank you for allowing me to participate in patient's care. Please feel free to call with questions or concerns. Attestations Medical Necessity Statement*: As per primary team Time Spent in Patient Care: 16 - 35 minutes (>than 50% of time spent in counselling and/or direct pt care on unit) . Coding Level of Care Code Acute Head Of Stock for [facility] Fwd Diagnoses Atrial flutter with rapid ventricular response I48.92 CHF (congestive heart failure) I50.9 Heart failure type: unspecified Heart failure chronicity: chronic Hx of non-insulin dependent diabetes mellitus Z86.39 Generalized weakness R53.1
[2020-05-29 11:39] LABS: Glucose Point of Care 289 mg/dL (70-110)
[2020-05-29] MEDS: digoxin 125 mcg Tablet PO (11:48)
[2020-05-29 16:11] LABS: Glucose Point of Care 190 mg/dL (70-110)
--- NOTE | 2020-05-29 17:08 | PM.PN ---
Subjective Subjective: Interval history: She reports she is doing pretty well. Reports that she was able to accomplish more walking today. Denies any new numbness or weakness. Denies any chest pain or pressure. No trouble breathing. Vitals/I&O/Wt Last Vital Signs Temp 97.6 F 05/29/20 14:58 Pulse 115 H 05/29/20 14:58 Resp 18 05/29/20 14:58 BP 98/68 05/29/20 14:58 Pulse Ox 94 05/29/20 14:58 05/29/20 05/29/20 05/29/20 06:59 14:59 22:59 Intake Total 50 / 340 240 / 240 Output Total 450 / 2450 700 / 700 Balance -400 / -2110 240 / 240 -700 / -460 Physical Exam Const: COMMON NORMALS: no acute distress, patient oriented x3 and alert GENERAL APPEARANCE: cooperative and comfortable ORIENTATION/CONSCIOUSNESS: Yes awake OTHER: Sitting up. She is hard of hearing, but able to hear and understand when spoken to loudly. HENMT: COMMON NORMALS: oropharynx normal Neck/C-Spine: COMMON NORMALS: no JVD Resp: COMMON NORMALS: normal respiratory effort and clear to auscultation bilaterally AUSCULTATION: clear to auscultation bilaterally Cardio: COMMON NORMALS: no JVD, regular rhythm, S1 normal heart sound present, S2 normal heart sound present and No murmurs present (Cardio) RHYTHM: regular rhythm HEART SOUNDS: S1 normal heart sound present and S2 normal heart sound present GI: COMMON NORMALS: Normal to inspection, nondistended, normoactive bowel sounds present, Soft to palpation and non-tender PALPATION: Yes Soft to palpation Extremity: COMMON NORMALS: no joint enlargement and no pedal edema Neuro: COMMON NORMALS: patient oriented x3 and moves all extremities SENSORIUM/ORIENTATION: Yes alert Skin: COMMON NORMALS: no rashes or lesions noted GENERAL SKIN EXAM: no rashes or lesions noted Urinary Catheter Management^: Carranza: Cath Placed During This Visit: yes Reason for Continuing Indwelling Catheter: Accurate Measurement of Urinary Output in Critically Ill Patients Urinary Catheter Date of Insertion: 05/28/20 Urinary Catheter Time of Insertion: 07:43 Data : 05/29/20 04:58 05/29/20 04:58 Micro: Microbiology 05/27/20 15:55 Blood Culture - Preliminary Blood NEGATIVE TO DATE 05/27/20 15:50 Blood Culture - Preliminary Blood NEGATIVE TO DATE A&P Assessment and plan (1) Atrial fibrillation with RVR: HR mostly above 110. BP soft. Started on digoxin 125mcg by cardiology. Continue metoprolol if blood pressure tolerating. Amiodarone. -Echocardiogram with normal LVEF without any acute R WMA Originally planned for SCHUYLER with cardioversion, however, this was deferred after worsening of her condition. Status: Acute (2) NSTEMI (non-ST elevated myocardial infarction): Type II non-STEMI. She remains chest pain-free. Continue aspirin 81 mg, metoprolol, atorvastatin Status: Acute (3) CHF (congestive heart failure): Continue Lasix if blood pressure allows. Status: Acute Qualifiers: Heart failure chronicity: chronic Heart failure type: unspecified Qualified Code(s): I50.9 - Heart failure, unspecified (4) Generalized weakness: Suspect multifactorial, but possibly may be secondary to UTI given she appears to be little better today. Reports she has been walking in the hines. I see that PT documented minimum assist with supine to sit, standby assist with standing, walking. Slow but steady gait. From what is reported this appears to be an improvement. Status: Acute (5) CVA (cerebral vascular accident): Cognitive slowing noted by family over the past 3-[address] of the head upon admission showed small amount of ill-defined low density. Concern for recent infarctions in right frontal lobe and corpus callosum and right frontal lobe possibly contributing to her cognitive decline. Echocardiogram without any noted thrombus. Carotid artery Doppler Doppler without any identifiable stenosis. Acute generalized weakness appears to be improving. Noted acute infarct in parasagittal portion of right frontal lobe last night. No hemorrhage. Correlates to findings on CT head as previously discussed with neurology. Perhaps additional symptoms related to UTI. Continue Eliquis for AFIb. Optimize risk factors for CVA including treatment for diabetes. A1c could be a little bit better at 7.8. Blood pressure is not elevated here. Continue aspirin, statin. Continue PT, OT. Follow-up with neurology after discharge. Status: Acute Qualifiers: CVA mechanism: embolism Precerebral and cerebral artery: unspecified cerebral artery Qualified Code(s): I63.40 - Cerebral infarction due to embolism of unspecified cerebral artery (6) Fever: Fever resolved. Subjectively she is doing well. Undergoing treatment for urinary tract infection. Noted pseudomonal infection from recent culture from primary care office. Status: Acute (7) Hx of non-insulin dependent diabetes mellitus: Hemoglobin A1c currently at 7.8, consistent with diabetes mellitus. Start Metformin on discharge Low-dose insulin sliding scale. Status: Acute Attestations Medical Necessity Statement*: Continue admission for assessment management of acute on chronic CVA, optimization of risk factors, treatment of pseudomonal UTI with IV cefepime. Coding Level of Care Code Acute Client Specialist for [facility] Fwd Exam Comprehensive Diagnoses Atrial fibrillation with RVR I48.91 NSTEMI (non-ST elevated myocardial infarction) I21.4 CHF (congestive heart failure) I50.9 Heart failure chronicity: chronic Heart failure type: unspecified Generalized weakness R53.1 CVA (cerebral vascular accident) I63.40 CVA mechanism: embolism Precerebral and cerebral artery: unspecified cerebral artery Fever R50.9 Hx of non-insulin dependent diabetes mellitus Z86.39
--- NOTE | 2020-05-29 19:06 | PC.NURSE ---
Patient has no complaints at this time. Patient was educated not to get up without assistance, verbalized understanding, and has call light within reach.
[2020-05-29] MEDS: atorvastatin 40 mg Tablet PO (20:35)
[2020-05-29] MEDS: aspirin 81 mg EC Tablet PO (20:35)
[2020-05-29 22:24] LABS: Glucose Point of Care 215 mg/dL (70-110)
--- NOTE | 2020-05-29 22:43 | PC.NURSE ---
Dr. Salazar notified of patient having Carranza taken out today. Patient just now voided 50 ml and that is all she was able to go. Bladder scan showed 357 ml. Ordered to straight cath x1.
[2020-05-30 03:42] VITALS: BP 104/65; PULSE 109; RESP 14; TEMP 36.8; O2SAT 91
--- NOTE | 2020-05-30 04:11 | PC.NURSE ---
Patient has 250 ml out with straight cath earlier as charted. Assisted patient up to bedside commode again at this time, with only 25 mL voided.
--- NOTE | 2020-05-30 04:44 | PC.NURSE ---
Patient has not had any incontinent episodes. Linen is currently clean and dry. Patient was assisted to bedside commode twice throughout night with little urine out put. 250 returned with straight cath earlier in shift.
[2020-05-30 05:28] LABS: Basophils # 0.1 10^3/uL (0.0-0.1); Basophils % 0.7 %; Eosinophils # 0.2 10^3/uL (0.0-0.8); Eosinophils % 2.1 %; Hematocrit 41.4 % (37.0-47.0); Hemoglobin 13.3 g/dL (11.5-15.3); Lymphocytes # 2.2 10^3/uL (0.8-4.8); Lymphocytes % 25.7 %; Mean Corpuscular HGB Conc 32.1 g/dL (30.0-36.0); Mean Corpuscular Hemoglobin 28.7 pg (28.0-34.0); Mean Corpuscular Volume 89.2 fL (81-99); Mean Platelet Volume 9.9 fL (7.4-10.4); Monocytes # 0.7 10^3/uL (0.2-0.9); Monocytes % 8.3 %; Neutrophils # 5.31 10^3/uL (1.8-7.7); Neutrophils % 61.7 %; Nucleated Red Blood Cells % 0 %; Platelet Count 318 10^3/cmm (130-400); Red Blood Count 4.64 10^6/uL (4.1-5.3); Red Cell Distribution Width 13.7 % (12.1-15.1); White Blood Count 8.6 10^3/uL (4.0-10.0)
[2020-05-30 05:47] LABS: Digoxin 1.1 ng/mL (0.6-1.2)
[2020-05-30 06:02] LABS: Alanine Aminotransferase 17 U/L (0-33); Albumin Level 3.1 g/dL (3.5-5.2); Alkaline Phosphatase 99 IU/L (35-105); Anion Gap 16.9 (5-19); Aspartate Amino Transferase 24 U/L (0-32); Blood Urea Nitrogen 29 mg/dL (8-23); Calcium 8.6 mg/dL (8.5-10.5); Carbon Dioxide 22 mmol/L (22-29); Chloride 104 mmol/L (98-107); Globulin 2.9 g/dL (1.3-4.6); Glucose 169 mg/dL (65-115); Osmolality Calculated 298 mOsm/kg (285-295); Potassium 3.9 mmol/L (3.5-5.1); Sodium 139 mmol/L (136-145); Total Bilirubin 0.6 mg/dL (0.15-1.2)
[2020-05-30 07:05] VITALS: BP 107/58; PULSE 112; RESP 17; TEMP 35.7; O2SAT 93
--- NOTE | 2020-05-30 07:58 | P.PN_ITS ---
Subjective Subjective: Interval history: No new complaints. Medications: Reviewed: Yes Medication Review Details: Current Medications Acetaminophen (Tylenol) 650 mg PO Q6H PRN PRN Reason: Mild/Mod Pain Or Temp >/= 101 Albuterol Sulfate (Albuterol) 2.5 mg INHALATION Q4H.RESPIRATORY PRN PRN Reason: SHORTNESS OF BREATH Amiodarone HCl (Amiodarone 200 Mg Tablet) 400 mg PO TID [facility] Last Admin: 05/29/20 20:36 Dose: 400 mg Documented by: Apixaban (Eliquis) 5 mg PO Q12H [facility] Last Admin: 05/29/20 20:35 Dose: 5 mg Documented by: Aspirin (Aspirin Ec) 81 mg PO Q24H [facility] Last Admin: 05/29/20 20:35 Dose: 81 mg Documented by: Atorvastatin Calcium (Lipitor) 40 mg PO BEDTIME [facility] Last Admin: 05/29/20 20:35 Dose: 40 mg Documented by: Dextrose (D50w) 25 ml IVP ONCE PRN; Protocol PRN Reason: hypoglycemia protocol Dextrose (D50w) 50 ml IVP PRN PRN; Protocol PRN Reason: hypoglycemia protocol Digoxin (Digoxin 125 Mcg Tablet) 125 mcg PO DAILY [facility] Last Admin: 05/29/20 11:48 Dose: 125 mcg Documented by: Furosemide (Furosemide 40 Mg Tablet) 20 mg PO DAILY@0800 [facility] Glucagon (Glucagen) 1 mg IM ONCE PRN; Protocol PRN Reason: Adult Acute Hypoglycemia Prot. Dextrose (D5w) 500 mls @ 100 mls/hr IV ONCE PRN; Protocol PRN Reason: Adult Acute Hypoglycemia Prot Cefepime HCl 2,000 mg/ Sodium (Chloride) 50 mls @ 100 mls/hr IV Q24H [facility]; Protocol Last Admin: 05/29/20 15:07 Dose: 100 mls/hr Documented by: Insulin Aspart (Novolog) 0 unit SUBCUT WM&BEDTIME [facility]; Protocol Last Admin: 05/29/20 20:36 Dose: 4 unit Documented by: Metoprolol Tartrate (Lopressor) 100 mg PO BID [facility] Last Admin: 05/29/20 17:38 Dose: 100 mg Documented by: Ondansetron HCl (Zofran) 4 mg IVP Q6H PRN PRN Reason: NAUSEA AND VOMITING Vitals/I&O/Wt Last Vital Signs Temp 96.3 F L 05/30/20 07:05 Pulse 112 H 05/30/20 07:05 Resp 17 05/30/20 07:05 BP 107/58 05/30/20 07:05 Pulse Ox 93 05/30/20 07:05 05/29/20 05/30/20 05/30/20 22:59 06:59 14:59 Intake Total 120 / 360 200 / 560 Output Total 750 / 750 25 / 775 Balance -630 / -390 175 / -215 Physical Exam Narrative: EXAM NARRATIVE: Gen: obese woman sitting in bed, NAD Neck: No JVD appreciated RS: CTAB/L CVS: S1, S2 regular, tachycardia +, No murmur , rub or gallop appreciated. 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 weakness in left lower extremity (improved) Ext: trace bilateral edema Skin: No rash. Urinary Catheter Management^: Carranza: Cath Placed During This Visit: yes, but has since been removed by the nurse Reason for Continuing Indwelling Catheter: Accurate Measurement of Urinary Output in Critically Ill Patients Urinary Catheter Date of Insertion: 05/28/20 Urinary Catheter Time of Insertion: 07:43 Date Urinary Catheter Removed: 05/29/20 Time Urinary Catheter Discontinued: 18:14 Data : 05/30/20 05:02 05/30/20 05:02 A&P Assessment and plan (1) Atrial flutter with rapid ventricular response: Atypical atrial flutter ; patient has h/o paroxysmal atrial fibrillation -Patient remains in atrial flutter with RVR. Rate in 110's. asymptomatic. -continue digoxin, metoprolol and change to amiodarone 400 mg PO BID for 7 day and then 200 mg Po BID x 2 days and then 200 mg daily. -continue Eliquis 5 mg twice a day. -Normal Dig level. -Given progression of her CVA, I will hold off on SCHUYLER/Cv. I will continue with medical mangement with plan for SCHUYLER/Cv if needed as an outpatient. This was discuused with patient's daughter in detail as well. -f/u with me in office in 3-4 weeks Status: Acute (2) CHF (congestive heart failure): -compensated -change to lasix 20 mg (home dose). Status: Acute Qualifiers: Heart failure chronicity: chronic Heart failure type: unspecified Qualified Code(s): I50.9 - Heart failure, unspecified (3) Hx of non-insulin dependent diabetes mellitus: Status: Acute (4) Generalized weakness: Status: Acute Additional A&P Information NSTEMI type 2 in setting of decompensated CHF and atrial flutter with RVR CVA: on ASA and statin, MRI with right frontal lobe acute infarct h/o paroxysmal atrial fibrillation: previously followed with Dr. Gross and stopped Eliquis in September Thank you for allowing me to participate in patient's care. Please feel free to call with questions or concerns. Attestations Medical Necessity Statement*: As per primary team. Time Spent in Patient Care: 16 - 35 minutes Coding Level of Care Code Acute Automatic Car Wash Attendant for [facility] Fwd Diagnoses Atrial flutter with rapid ventricular response I48.92 CHF (congestive heart failure) I50.9 Heart failure chronicity: chronic Heart failure type: unspecified Hx of non-insulin dependent diabetes mellitus Z86.39 Generalized weakness R53.1
--- NOTE | 2020-05-30 08:27 | PM.DCS ---
Discharge Providers Date of Admission: 05/23/20 19:21 Date of Discharge: May 30, 2020 Attending Provider at Admission: Sd Roblero MD Attending Provider at Discharge: Nataly Jones MD Consults: Cardiology Primary Care Provider: Zenaida Spencer DO Diagnoses at Discharge Discharge Diagnosis (1) Atrial flutter with rapid ventricular response: Status: Acute Permanent problem details: -continue digoxin, metoprolol, amiodarone -f/u with cardiology in 3-4 weeks -on AC with Eliquis (2) CHF (congestive heart failure): Status: Acute Permanent problem details: -clinically euvolemic -Echo: EF=55%, no RWMA, mild MR, trace to mild TR Qualifiers: Heart failure chronicity: chronic Heart failure type: unspecified Qualified Code(s): I50.9 - Heart failure, unspecified (3) Hx of non-insulin dependent diabetes mellitus: Status: Acute Permanent problem details: -A1c-7.8 -d/c on metformin (4) Generalized weakness: Status: Acute Permanent problem details: -secondary to infection and CVA -has been improving with therapy Other Information Additional DC diagnoses/information: -Advanced age -Acute CVA as demonstrated on CT head and MRI head; no thrombus on Echo, no stenosis bilaterally on carotid US -UTI; grew Pseudomonas on urine cx obtained prior to admission; d/c on ciprofloxacin. Afebrile, no WBC. Reason for Visit Reason for Visit: SOB 94765 R06.02 Hospital Course Hospital Course Patient is admitted to the cardiac stepdown unit and started on Cardizem drip secondary to having been found to have A. fib with RVR. She had presented to [facility] in [place] with progressively worsening shortness of breath; was tested for COVID-19 which was negative and diagnosed with mild acute CHF exacerbation and discharged on oral Lasix. However due to worsening symptoms she presented to our ER where she was found to have arrhythmia. She was transitioned to oral beta-ana and started on statin and aspirin secondary to NSTEMI with escalation of diuresis to IV Lasix due to noted overt CHF exacerbation. Due to concern for increasing weakness she had CT scan of the head done which showed findings consistent with small amounts of ill-defined low-density in anterior aspect of the right frontal lobe and corpus callosum concerning for recent infarctions. During the course of her hospitalization she developed acutely worsening weakness concerning for progression of infarction at which point she had repeat CT scan of the head and MRI which indicated acute infarct in the parasagittal portion of the right frontal lobe with no noted hemorrhage. At this point due to continued A. fib with RVR cardiology has been consulted and was considering SCHUYLER with cardioversion. However due to concern for recent CVA this was held. She was started on anticoagulation with Eliquis and digoxin and amiodarone added to her regimen with noted better heart rate control. Carotid ultrasound did not show any stenosis bilaterally, echo showed no thrombus and an ejection fraction of 55%. She was found to have an A1c of 7.8 and will be discharged on Metformin. She has been on treatment with cefepime secondary to UTI, blood cultures have been negative, no urine cultures are available here but she reportedly had a urine culture done in the outpatient setting growing Pseudomonas. She has been hemodynamically stable, afebrile and on room air. She has been cleared for discharge with appropriate follow-up by cardiology. She will require appropriate follow-up with her primary care provider as well. Home health services have been arranged and she does have assistance from her family as needed at home as well. Physical Exam Const: COMMON NORMALS: no acute distress, patient oriented x3 and alert GENERAL APPEARANCE: cooperative and comfortable ORIENTATION/CONSCIOUSNESS: Yes awake OTHER: -very pleasant, looks appropriate for age HENMT: COMMON NORMALS: normocephalic, atraumatic, hearing grossly normal bilaterally and moist oral mucous membranes HEAD & SCALP: normocephalic and atraumatic Eye: COMMON NORMALS: Equal, round and reactive pupils present, EOMs intact bilaterally and conjunctivae normal CONJUNCTIVA: Yes conjunctivae normal PUPIL: Yes Equal, round and reactive pupils present Neck/C-Spine: COMMON NORMALS: full ROM GENERAL: Yes normal visual inspection and Yes trachea midline Resp: COMMON NORMALS: normal respiratory effort, No retractions, No use of accessory muscles and clear to auscultation bilaterally EFFORT & INSPECTION: Yes able to speak in complete sentences, Yes symmetric chest movement and No tachypneic AUSCULTATION: clear to auscultation bilaterally OTHER: -on RA Cardio: COMMON NORMALS: S1 normal heart sound present, S2 normal heart sound present and No murmurs present (Cardio) RATE: tachycardic RHYTHM: abnormal rhythm irregularly irregular HEART SOUNDS: S1 normal heart sound present and S2 normal heart sound present GI: COMMON NORMALS: Normal to inspection, nondistended, normoactive bowel sounds present, Soft to palpation and non-tender INSPECTION: Yes central obesity PALPATION: Yes Soft to palpation Extremity: COMMON NORMALS: normal to inspection, full ROM and no clubbing, cyanosis or edema; negative for no pedal edema Neuro: COMMON NORMALS: patient oriented x3, moves all extremities, no focal motor deficits and no sensory deficits noted SENSORIUM/ORIENTATION: Yes alert Psych: COMMON NORMALS: mental status grossly normal, Normal thought process present, cooperative, normal affect and speech normal SPEECH: Yes normal speech THOUGHT PROCESS: Normal thought process present Skin: COMMON NORMALS: no rashes or lesions noted, no jaundice, no petechiae and no mottling GENERAL SKIN EXAM: no rashes or lesions noted Urinary Catheter Management^: Carranza: Cath Placed During This Visit: yes, but has since been removed by the nurse Reason for Continuing Indwelling Catheter: Accurate Measurement of Urinary Output in Critically Ill Patients Urinary Catheter Date of Insertion: 05/28/20 Urinary Catheter Time of Insertion: 07:43 Date Urinary Catheter Removed: 05/29/20 Time Urinary Catheter Discontinued: 18:14 Discharge Data Data Completed and Pending: Completed Studies During Hospitalization Category Date Time Status CT head wo con* 7 0450 Routine Cat Scan 05/28/20 07:[address] head wo con* 7 0450 Stat Cat Scan 05/23/20 21:16 Completed XR chest 1V letty ble [id number] Routine Exams 05/27/20 14:55 Completed XR chest 1V letty ble [id number] Stat Exams 05/23/20 15:39 Completed MR head wo con* 7 0551 Routine MRI 05/28/20 12:56 Completed CV carotid duplex BI* [id number] Routine Ultrasound 05/26/20 13:12 Completed CV echo complete* [id number] Routine Ultrasound 05/25/20 05:00 Completed CV echo lmt wo/w contras [id number] Rout ine Ultrasound 05/27/20 07:00 [place] [id number] Routin e Ultrasound 05/24/20 21:16 Completed US/CV paperwork R outine Ultrasound 05/27/20 Completed Pending at discharge Category Date Time Status Blood Culture Sta t Lab 05/27/20 15:50 Results MR head wo con* 7 0551 Routine MRI 05/28/20 16:45 Unverified Labs from last 24 hours 05/30/20 05/30/20 05/30/20 05:02 05:02 05:02 WBC RBC Hgb Hct MCV MCH MCHC RDW Plt Count MPV Neut % (Auto) Lymph % (Auto) [place] % (Auto) Eos % (Auto) Baso % (Auto) Neut # (Auto) Lymph # (Auto) [place] # (Auto) Eos # (Auto) Baso # (Auto) Nucleated RBC % (a uto) Nucleated RBCs # Sodium 139 Potassium 3.9 Chloride 104 Carbon Dioxide 22 Anion Gap 16.9 BUN 29 H Creatinine 1.0 H GFR Calculation Not Reportable Glucose 169 H POC Glucose Calculated Osmolal ity 298 H Calcium 8.6 Magnesium 2.0 Total Bilirubin 0.6 AST 24 ALT 17 Alkaline Phosphata se 99 Total Protein 6.0 L Albumin 3.1 L Globulin 2.9 Digoxin 1.1 05/30/20 05/29/20 05/29/20 05:02 20:29 15:50 WBC 8.6 RBC 4.64 Hgb 13.3 Hct 41.4 MCV 89.2 MCH 28.7 MCHC 32.1 RDW 13.7 Plt Count 318 MPV 9.9 Neut % (Auto) 61.7 Lymph % (Auto) 25.7 [place] % (Auto) 8.3 Eos % (Auto) 2.1 Baso % (Auto) 0.7 Neut # (Auto) 5.31 Lymph # (Auto) 2.2 [place] # (Auto) 0.7 Eos # (Auto) 0.2 Baso # (Auto) 0.1 Nucleated RBC % (a uto) 0 Nucleated RBCs # 0.0 Sodium Potassium Chloride Carbon Dioxide Anion Gap BUN Creatinine GFR Calculation Glucose POC Glucose 215 190 Calculated Osmolal ity Calcium Magnesium Total Bilirubin AST ALT Alkaline Phosphata se Total Protein Albumin Globulin Digoxin 05/29/20 10:47 WBC RBC Hgb Hct MCV MCH MCHC RDW Plt Count MPV Neut % (Auto) Lymph % (Auto) [place] % (Auto) Eos % (Auto) Baso % (Auto) Neut # (Auto) Lymph # (Auto) [place] # (Auto) Eos # (Auto) Baso # (Auto) Nucleated RBC % (a uto) Nucleated RBCs # Sodium Potassium Chloride Carbon Dioxide Anion Gap BUN Creatinine GFR Calculation Glucose POC Glucose 289 Calculated Osmolal ity Calcium Magnesium Total Bilirubin AST ALT Alkaline Phosphata se Total Protein Albumin Globulin Digoxin Vitals: Last Vital Signs Temp 96.3 F L 05/30/20 07:05 Pulse 112 H 05/30/20 07:05 Resp 17 05/30/20 07:05 BP 107/58 05/30/20 07:05 Pulse Ox 93 05/30/20 07:05 Discharge Plan Discharge Patient Disposition: Home Condition: Stable Prescriptions: New Eliquis 5 mg Tablet 5 mg PO Q12H 30 Days Qty: 60 RF: 0 aspirin 81 mg Tablet,Delayed Release (Dr/Ec) 81 mg PO DAILY 30 Days Qty: 30 RF: 0 atorvastatin 40 mg Tablet 40 mg PO BEDTIME Qty: 30 RF: 0 Pacerone 200 mg Tablet See Rx Instructions .ROUTE .COMPLEX 30 Days Qty: 60 RF: 0 metoprolol tartrate 50 mg Tablet 100 mg PO BID 30 Days Qty: 120 RF: 0 digoxin 125 mcg (0.125 mg) Tablet 125 mcg PO DAILY Qty: 30 RF: 0 metformin 500 mg tablet 500 mg PO BID Qty: 60 RF: 0 ciprofloxacin HCl 500 mg tablet 500 mg PO BID 7 Days Qty: 14 RF: 0 Continued calcium citrate-vitamin D3 [Calcium Citrate + D] 315-200 mg-unit Tablet 1 tab PO DAILY RF: 0 cinnamon bark [Cinnamon] 500 mg Capsule 500 mg PO DAILY RF: 0 Lasix 20 mg Tablet 20 mg PO DAILY Qty: 30 RF: 0 Discontinued metoprolol succinate 25 mg capsule,sprinkle,ER 24hr 100 mg PO DAILY RF: 0 Discharge Orders: Discharge Order (Routine); Ordered 05/30/20 Ordered By: Nataly Jones Referrals: Zenaida Spencer DO [Primary Care Provider] - 4-7 days Whitney Sadler MD [Physician] - 1 month Discharge Diet: Cardiac and Diabetic Discharge Activity: Increase activity as tolerated and As per PT/OT instructions Discharge Attestations Time Spent in Discharge Care*: greater than 30 min Specific Discharge Activities: educating patient, discussing with pcp/other providers, discussing with case folder/social workers/dc planners, documenting/other paperwork and evaluating patient/reviewing data Status at Discharge: Cognitive status at discharge: cognitively intact, Behavioral status at discharge: cooperative, Functional status at discharge: uses cane/walker Overall status at discharge: patient is progressing back to baseline Quality Metrics Clinical Quality Measures During this hospital stay, did patient experience: Stroke Contraindication to Antithrombotic: Antithrombotic prescribed Contraindication to Anticoagulation: Anticoagulation prescribed Contraindication to Statin: Statin prescribed Rehab services assessed: Activities of daily living assessment, Physical therapy and Occupational therapy Coding Level of Care Code Acute Shackler for Zohra Fwd Exam Comprehensive Diagnoses Atrial flutter with rapid ventricular response I48.92 CHF (congestive heart failure) I50.9 Heart failure chronicity: chronic Heart failure type: unspecified Hx of non-insulin dependent diabetes mellitus Z86.39 Generalized weakness R53.1
[2020-05-30] MEDS: apixaban 5 mg Tablet PO (09:10)
[2020-05-30] MEDS: FUROsemide 20 mg Tablet PO (09:10)
[2020-05-30 09:11] VITALS: PULSE 113
[2020-05-30] MEDS: digoxin 125 mcg Tablet PO (09:11)
[2020-05-30] MEDS: amiodarone 200 mg Tablet 400 MG PO (09:11)
[2020-05-30] MEDS: metoprolol tartrate 50 mg Tablet 100 MG PO (09:11)
[2020-05-30 09:18] LABS: Glucose Point of Care 252 mg/dL (70-110)
--- NOTE | 2020-05-30 11:05 | DCPLANNER ---
IMM completed on 05/30/20 @ 0724. Copy of rights given to pt.
[2020-05-30 11:24] VITALS: BP 114/77; PULSE 111; RESP 16; TEMP 36.7; O2SAT 91
[2020-05-30 11:38] LABS: Glucose Point of Care 229 mg/dL (70-110)
[2020-05-30 12:42] VITALS: BP 114/77; PULSE 111; RESP 16; TEMP 36.7; O2SAT 91
--- NOTE | 2020-05-30 14:02 | PC.NURSE ---
Patient discharged at this time to care of family and home health. Discharge instructions given and explained to patient, explained discharge to family notified them if any questions needed answered just to call, Patient is alert oriented and in stable condition patient assisted to wheel chair and accompanied by staff to [facility]. All belongings and discharge instructions sent with patient.
== END 2020-05-30 13:55 | disposition home or self-care (01) | DRG 280 ==
LOC: ER 19:25 → CSU 19:52
PROVIDERS: Emergency Medicine; Internal Medicine Cardiovascular Disease; Student in an Organized Health Care Education/Training Program; Admitting Provider Family Medicine; Emergency Provider Emergency Medicine; Family Provider Family Medicine; PCP Family Medicine; Visit Provider Family Medicine
DX: I48.91 Unspecified atrial fibrillation (principal); I21.4 Non-ST elevation (NSTEMI) myocardial infarction; I63.40 Cerebral infarction due to embolism of unspecified cerebral artery; N39.0 Urinary tract infection, site not specified; H90.3 Sensorineural hearing loss, bilateral; Z96.653 Presence of artificial knee joint, bilateral; I11.0 Hypertensive heart disease with heart failure; I50.9 Heart failure, unspecified; E11.9 Type 2 diabetes mellitus without complications; Z66 Do not resuscitate; R53.1 Weakness; B96.5 Pseudomonas (aeruginosa) (mallei) (pseudomallei) as the cause of diseases classified elsewhere
CPT/HCPCS: 12345; 36415; 36416; 51702; 51798; 70450; 70551; 71045; 80053; 80061; 80162; 81001; 82962; 83036; 83605; 83735; 83880; 84100; 84145; 84443; 84484; 85025; 87040; 87426; 93005; 93306; 93880; 93970; 96372; 96375; 97110; 97116; 97161; 97165; 97166; 97530; 97535; 99284; C8924; J0692; J1160; J1815; J1940; J2370; J3490; Q9956

== ENCOUNTER → 2022-12-08 10:53 | Outpatient (BNVA) | payer MEDICARE, OTHER, MEDICAID, SELFPAY | PROVIDERS: Family Provider Family Medicine; PCP Family Medicine; Visit Provider Orthopaedic Surgery | DX: M25.562 Pain in left knee (principal) | CPT/HCPCS: 99213 ==

== ENCOUNTER 2023-03-28 14:42 | Inpatient (IN) | payer MEDICARE, MEDICAID, SELFPAY ==
[2023-03-28 14:53] VITALS: BMI 32.4
[2023-03-28 15:05] VITALS: BP 132/85; PULSE 83; RESP 17; TEMP 36.4; O2SAT 94
--- NOTE | 2023-03-28 15:25 | XRR_ITS ---
PROCEDURE INFORMATION: Exam: XR Pelvis Exam date and time: 03/28/2023 4:37 PM Age: 88 years old Clinical indication: Injury or trauma; Fall; Blunt trauma (contusions or hematomas); Patient HX: Pre op planning for left hip fracture; Additional info: Left hip FX, ap pelvis and ap left hip TECHNIQUE: Imaging protocol: Radiologic exam of the pelvis. Views: 1 or 2 view. COMPARISON: No relevant prior studies available. FINDINGS: Bones/joints: There is an angulated proximal left femur intertrochanteric region fracture. No dislocation of the left hip joint is seen. Visualized pelvis is intact. Soft tissues: Unremarkable. Vasculature: Vascular calcifications and phleboliths. XR/XR pelvis 1-2V* [id number] IMPRESSION: Angulated left proximal femur intertrochanteric region fracture.
--- NOTE | 2023-03-28 15:25 | XRR_ITS ---
PROCEDURE INFORMATION: Exam: XR Left Femur Exam date and time: 03/28/2023 6:23 PM Age: 88 years old Clinical indication: Injury or trauma; Fall; Blunt trauma; Patient HX: Pre op planning for left hip fracture; Additional info: Left intertroch FX TECHNIQUE: Imaging protocol: Radiologic exam of the left femur. Views: 2 views. COMPARISON: CR (PELVIS, ) 03/28/2023 4:37 PM FINDINGS: Bones/joints: There is an angulated intertrochanteric region left proximal femur fracture again present. No hip joint dislocation. Partially visualized left total knee arthroplasty postoperative changes. Soft tissues: Unremarkable. Vasculature: Vascular calcifications. XR/XR femur LT min 2V* [id number] IMPRESSION: Redemonstration of an angulated left proximal femur intertrochanteric region fracture. No other fracture identified.
--- NOTE | 2023-03-28 15:25 | XRR_ITS ---
PROCEDURE INFORMATION: Exam: XR Left Knee Exam date and time: 03/28/2023 6:23 PM Age: 88 years old Clinical indication: Injury or trauma; Fall; Blunt trauma; Patient HX: Pre op planning for left hip fracture; Additional info: Left hip FX preop planning, ap and lateral left knee TECHNIQUE: Imaging protocol: Radiologic exam of the left knee. Views: 1 or 2 views. COMPARISON: No relevant prior studies available. FINDINGS: Bones/joints: Left-sided total knee arthroplasty. No acute fracture visible. Soft tissues: Normal. Other findings: Study limited by positioning. XR/XR knee LT 1-2V [id number] IMPRESSION: No acute findings.
[2023-03-28 16:19] LABS: Alanine Aminotransferase 24 U/L (0-33); Albumin Level 3.2 g/dL (3.5-5.2); Alkaline Phosphatase 105 U/L (35-105); Blood Urea Nitrogen 14 mg/dL (8-23); Calcium 8.6 mg/dL (8.5-10.5); Carbon Dioxide 20 mmol/L (22-29); Chloride 104 mmol/L (98-107); Globulin 3.1 g/dL (1.3-4.6); Glucose 190 mg/dL (65-115); Osmolality Calculated 288 mOsm/kg (285-295); Sodium 136 mmol/L (136-145); Total Bilirubin 0.7 mg/dL (0.15-1.2); Total Protein 6.3 g/dL (6.6-8.7)
[2023-03-28 16:28] LABS: Glucose Point of Care 212 mg/dL (70-110)
[2023-03-28 16:29] LABS: Anion Gap 16.4 (5-19); Potassium 4.4 mmol/L (3.5-5.1)
[2023-03-28 16:30] LABS: Aspartate Amino Transferase 63 U/L (0-32)
[2023-03-28 16:33] LABS: Basophils # 0.1 10^3/uL (0.0-0.1); Basophils % 0.5 %; Eosinophils % 0.1 %; Hematocrit 40.6 % (36-47); Lymphocytes # 0.8 10^3/uL (0.8-4.8); Lymphocytes % 6.9 %; Mean Corpuscular HGB Conc 28.1 g/dL (30-55); Mean Corpuscular Hemoglobin 24.1 pg (27-33); Mean Corpuscular Volume 85.8 fl (85-98); Mean Platelet Volume 9.7 fL (7.4-10.4); Monocytes # 0.9 10^3/uL (0.2-0.9); Monocytes % 8.3 %; Neutrophils # 9.07 10^3/uL (1.8-7.7); Neutrophils % 83.7 %; Nucleated Red Blood Cells % 0 %; Platelet Count 255 10^3/cmm (157-399); Red Blood Count 4.73 10^6/uL (3.85-5.65); White Blood Count 10.83 10^3/uL (3.29-11.43)
--- NOTE | 2023-03-28 17:00 | PM.HP ---
Providers/Chief Complaint Admitting Physician: Gorge Salazar MD Primary Care Provider: Zenaida Spencer DO Chief Complaint: left hip fracture History of Present Illness Daily Barreto is a 88 year old female had a fall sustaining a hip fracture she was transferred to our facility for orthopedic intervention. She lives in assisted living and uses a walker to ambulate.She carries history of A-fib however has not taking any anticoagulating agent for more than a year no chest pain, seizure-like activity or syncope. Review of Systems Eyes: Denies: change in vision ENMT: Denies: throat pain Card: Denies: chest pain Resp: Denies: dyspnea GI: Denies: abdominal pain : Denies: flank pain Musc: Reports: back pain and extremity pain Medications/Allergies Home Medications Medication Instructions Recorded Confirmed Last Taken Type sitagliptin phosphate 50 mg tablet 50 mg PO DAILY 08/01/20 12/24/22 Unknown History (Januvia) acetaminophen 325 mg tablet 325 mg PO QID PRN 06/25/22 12/24/22 Unknown History albuterol sulfate 90 mcg/actuation 2 puff inhalation Q6H PRN 06/25/22 12/24/22 Unknown History aerosol inhaler escitalopram oxalate 10 mg tablet 10 mg PO DAILY 06/25/22 12/24/22 Unknown History famotidine 20 mg tablet 20 mg PO BID 06/25/22 12/24/22 Unknown History amiodarone 200 mg tablet 200 mg PO DAILY #90 tabs 12/24/22 12/24/22 Unknown Rx atorvastatin 40 mg tablet 40 mg PO DAILY #90 tabs 12/24/22 12/24/22 Unknown Rx diclofenac sodium 1 % topical gel 2 g topical QID PRN 12/24/22 12/24/22 Unknown History (Arthritis Pain (diclofenac)) furosemide 40 mg tablet 20 mg PO DAILY #45 tabs 12/24/22 12/24/22 Unknown Rx guaifenesin 1,200 mg tablet, 1,200 mg PO Q12H PRN 12/24/22 12/24/22 Unknown History extended release 12 hr (Mucinex) guaifenesin 100 mg/5 mL oral liquid 200 mg PO Q4H PRN 12/24/22 12/24/22 Unknown History levothyroxine 50 mcg tablet 50 mcg PO DAILY 12/24/22 12/24/22 Unknown History loperamide 2 mg tablet 2 mg PO Q6H PRN 12/24/22 12/24/22 Unknown History (Anti-Diarrheal (loperamide)) metoprolol tartrate 50 mg tablet 25 mg PO BID #90 tabs 12/24/22 12/24/22 Unknown Rx nystatin 100,000 unit/gram topical 1 applic topical DAILY PRN 12/24/22 12/24/22 Unknown History powder potassium chloride 20 mEq 20 meq PO DAILY #90 tabs 12/24/22 12/24/22 Unknown Rx tablet,extended release simethicone 125 mg chewable tablet 125 mg PO TID PRN 12/24/22 12/24/22 Unknown History (Gas Relief (simethicone)) Allergies Allergy/AdvReac Type Severity Reaction Status Date / Time No Known Allergies Allergy Verified 12/08/22 11:21 PFSH Acute PFSH: Medical History Atrial fibrillation with RVR CHF (congestive heart failure) -clinically euvolemic -Echo: EF=55%, no RWMA, mild MR, trace to mild TR CVA (cerebral vascular accident) 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 Generalized weakness -secondary to infection and CVA -has been improving with therapy History of atrial fibrillation History of vaginal delivery HTN (hypertension) Hx of non-insulin dependent diabetes mellitus -A1c-7.8 -d/c on metformin Hx of urinary tract infection NSTEMI (non-ST elevated myocardial infarction) Surgical History (Updated 03/29/23 @ 10:26 by Gorge Salazar MD) H/O total knee replacement History of right knee joint replacement Hx of cholecystectomy Status post knee replacement Family History Mother Diabetes Father CHF (congestive heart failure) Social History Smoking and tobacco status: never smoked Alcohol intake: never Substance/Drug Use: never Vitals/I&O/Wt Last Vital Signs Temp 97.5 F L 03/28/23 15:05 Pulse 83 03/28/23 15:05 Resp 17 03/28/23 15:05 BP 132/85 03/28/23 15:05 Pulse Ox 94 09/10/23 15:05 O2 Del Method Nasal Cannula 03/28/23 15:05 Weight last 48 hrs Weight 96.814 kg Physical Exam Narrative: Pleasant and cooperative S1, S2 variable Currently on room air Hemodynamic stable No signs of stroke GCS 15 Left hip is tender Left leg rotated and shortened No signs of vascular compromise Doing well on room air Data 03/29/23 05:29 03/29/23 05:29 A&P Assessment and plan (1) Intertrochanteric fracture of left femur: (2) HTN (hypertension): Qualifiers: Hypertension type: primary hypertension Qualified Code(s): I10 - Essential (primary) hypertension (3) Atrial flutter, paroxysmal: (4) Diabetes mellitus type II, controlled: Qualifiers: Diabetes mellitus custodial insulin use: without custodial use Diabetes mellitus complication status: without complication Qualified Code(s): E11.9 - Type 2 diabetes mellitus without complications Plan Left femur intertrochanteric fracture N.p.o. for surgery tomorrow No preoperative cardiac clearance needed A-fib has not taken anticoagulating agent for more than a year Recurrent falls Uses a walker From assisted living Daughter is her medical power of criminal defense attorney Plan will be made after PT post intervention Opiates for pain management along bowel regimen Orthopedics consulted Attestations Medical Necessity Statement*: More than 2 midnights anticipated Diagnoses Intertrochanteric fracture of left femur S72.142A HTN (hypertension) I10 Hypertension type: primary hypertension Atrial flutter, paroxysmal I48.92 Diabetes mellitus type II, controlled E11.9 Diabetes mellitus custodial insulin use: without termite control representative use Diabetes mellitus complication status: without complication
[2023-03-28 17:15] VITALS: PULSE 66; RESP 16; O2SAT 94
[2023-03-28 17:29] VITALS: RESP 16
[2023-03-28] MEDS: HYDROmorphone 1 mg/mL INJ 1 mL 0.4 MG IVP (17:29)
[2023-03-28] MEDS: metoprolol tartrate 50 mg Tablet 25 MG PO (17:31)
[2023-03-28] MEDS: insulin lispro 100 unit/1 mL SUBCUT (18:15)
[2023-03-28 20:00] VITALS: BP 106/68; PULSE 76; RESP 17; TEMP 37.2; O2SAT 90
[2023-03-28 20:37] VITALS: RESP 17; O2SAT 95
[2023-03-28] MEDS: morphine IR 15 mg Tablet PO (20:37)
[2023-03-28 20:38] VITALS: O2SAT 95
[2023-03-28 21:08] LABS: Glucose Point of Care 171 mg/dL (70-110)
--- NOTE | 2023-03-28 21:49 | P.CONIM_ITS ---
Patient seen and examined with KRISTINA. Agree with MORGANC's assessment and plan. Patient has a displaced left intertrochanteric femur fracture with subtrochanteric extension. Patient does have a power of erisa attorney which was contacted by my PA and they understand the risk benefits complication alternatives with surgery and through shared decision-making elects to proceed with surgical intervention for left trochanteric femur nail. Given the subtrochanteric extension fracture line would recommend a long cephalomedullary nail. She will be medically optimized by the primary team. Plan for surgical intervention tomorrow. N.p.o. at midnight. Once again in order for earlier mobilization as well as pain control recommend surgical intervention of the left femur trochanteric nail. Risks with surgery include not limited to make a better make it worse injury to nerves also tendons blood clot, attack or stroke, on table, infection. Understanding risk of surgery they like to proceed with surgical intervention. All questions answered. Lee Yin DO Providers/Reason For Consult Consulting Physician/Specialty*: Dr. Yin Reason for Consult*: Left intertrochanteric femur fracture Requesting Physician: Dr. Salazar Attending Physician: Gorge Salazar MD Primary Care Provider: Zenaida Spencer DO History of Present Illness History of Present Illness Daily Barreto is a 88 year old female that had a fall and left hip fracture today. Fall was unwitnessed and occurred when patient was trying to transfer to toilet, fell and was found on the ground. Patient was seen at [facility] and transferred here for orthopedic consult and care. Patient lives at [facility] residence. She is able to ambulate with a walker and do her own transfers and do activities such as putting on her close with minimal to no assistance. Facility usually has a staff member present while patient is doing some of those activities but rarely needs to assist. Patient is not on any blood thinners. She has a history of multiple falls. patient has a history of CVAs, A-fib, CHF, hypertension. Surgical history of total knee replacement bilaterally. I contacted her power of erisa attorney Marcela Barreto,which is her daughter to discuss patient history. Review of Systems General: Reports: 10 or more systems reviewed and unremarkable except in HPI and below Const: Denies: fever(s) or chills GI: Denies: nausea or vomiting Musc: Reports: extremity pain (Left hip) and joint pain (Left hip) Medications/Allergies Home Medications Medication Instructions Recorded Confirmed Last Taken Type sitagliptin phosphate 50 mg tablet 50 mg PO DAILY 08/01/20 12/24/22 Unknown History (Januvia) acetaminophen 325 mg tablet 325 mg PO QID PRN 06/25/22 12/24/22 Unknown History albuterol sulfate 90 mcg/actuation 2 puff inhalation Q6H PRN 06/25/22 12/24/22 Unknown History aerosol inhaler escitalopram oxalate 10 mg tablet 10 mg PO DAILY 06/25/22 12/24/22 Unknown History famotidine 20 mg tablet 20 mg PO BID 06/25/22 12/24/22 Unknown History amiodarone 200 mg tablet 200 mg PO DAILY #90 tabs 12/24/22 12/24/22 Unknown Rx atorvastatin 40 mg tablet 40 mg PO DAILY #90 tabs 12/24/22 12/24/22 Unknown Rx diclofenac sodium 1 % topical gel 2 g topical QID PRN 12/24/22 12/24/22 Unknown History (Arthritis Pain (diclofenac)) furosemide 40 mg tablet 20 mg PO DAILY #45 tabs 12/24/22 12/24/22 Unknown Rx guaifenesin 1,200 mg tablet, 1,200 mg PO Q12H PRN 12/24/22 12/24/22 Unknown History extended release 12 hr (Mucinex) guaifenesin 100 mg/5 mL oral liquid 200 mg PO Q4H PRN 12/24/22 12/24/22 Unknown History levothyroxine 50 mcg tablet 50 mcg PO DAILY 12/24/22 12/24/22 Unknown History loperamide 2 mg tablet 2 mg PO Q6H PRN 12/24/22 12/24/22 Unknown History (Anti-Diarrheal (loperamide)) metoprolol tartrate 50 mg tablet 25 mg PO BID #90 tabs 12/24/22 12/24/22 Unknown Rx nystatin 100,000 unit/gram topical 1 applic topical DAILY PRN 12/24/22 12/24/22 Unknown History powder potassium chloride 20 mEq 20 meq PO DAILY #90 tabs 12/24/22 12/24/22 Unknown Rx tablet,extended release simethicone 125 mg chewable tablet 125 mg PO TID PRN 12/24/22 12/24/22 Unknown History (Gas Relief (simethicone)) Allergies Allergy/AdvReac Type Severity Reaction Status Date / Time No Known Allergies Allergy Verified 12/08/22 11:21 Current Medications Generic Name Dose Route Start Last Admin Trade Name Freq PRN Reason Stop Dose Admin Hydromorphone HCl 0.4 mg 03/28/23 17:01 03/28/23 17:29 Hydromorphone 1 Mg/Ml Inj 1 Ml IVP 0.4 mg Q4H PRN Administration pain Insulin Human Lispro 0 unit 03/28/23 18:00 03/28/23 18:15 Insulin Lispro 100 Unit/1 Ml SUBCUT 6 unit TIDWM TEVIN Administration Protocol Metoprolol Tartrate 25 mg 03/28/23 18:00 03/28/23 17:31 Metoprolol Tartrate 50 Mg Tablet PO 25 mg BID TEVIN Administration Morphine Sulfate 15 mg 03/28/23 17:01 03/28/23 20:37 Morphine Ir 15 Mg Tablet PO 15 mg Q6H PRN Administration pAIN PFSH Acute PFSH: Medical History Atrial fibrillation with RVR CHF (congestive heart failure) -clinically euvolemic -Echo: EF=55%, no RWMA, mild MR, trace to mild TR CVA (cerebral vascular accident) 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 Generalized weakness -secondary to infection and CVA -has been improving with therapy History of atrial fibrillation History of vaginal delivery HTN (hypertension) Hx of non-insulin dependent diabetes mellitus -A1c-7.8 -d/c on metformin Hx of urinary tract infection NSTEMI (non-ST elevated myocardial infarction) Surgical History H/O total knee replacement History of right knee joint replacement Hx of cholecystectomy Family History Mother Diabetes Father CHF (congestive heart failure) Social History Smoking and tobacco status: never smoked Alcohol intake: never Substance/Drug Use: never Vitals/I&O/Wt Last Vital Signs Temp 99.0 F 03/28/23 20:00 Pulse 76 03/28/23 20:00 Resp 17 03/28/23 20:37 BP 106/68 03/28/23 20:00 Pulse Ox 95 03/28/23 20:38 O2 Del Method Nasal Cannula 03/28/23 20:38 O2 Flow Rate 2 03/28/23 20:38 03/28/23 03/28/23 03/28/23 06:59 14:59 22:59 Intake Total 480 / 480 Output Total 200 / 200 Balance 280 / 280 Weight last 48 hrs Weight 213 lb 7 oz Physical Exam Const: COMMON NORMALS: alert Resp: COMMON NORMALS: normal respiratory effort EFFORT & INSPECTION: No respiratory distress Extremity: NARRATIVE EXTREMITY EXAM: Left hip?tender to palpation over greater trochanter. Left leg is shortened and externally rotated. She is able to dorsiflex and plantarflex foot and wiggle toes. Pedal pulse 2+ and toes were warm and well-perfused. normal cap refill under 2 seconds. Secondary assessment of extremities - upper extremities bilaterally-no obvious deformities noted. Shoulders are nontender to palpation. Good range of motion and patient able to raise arms above her shoulders with no pain. Radial pulse 2+ bilaterally. Right hip?no visible deformity noted. Pedal pulse 2+. Hips nontender to palpation. Neuro: SENSORIUM/ORIENTATION: Yes alert Data 03/28/23 15:47 03/28/23 15:47 Xray Ortho: Radiologist's impression: XR/XR femur LT min 2V* [id number] IMPRESSION: Redemonstration of an angulated left proximal femur intertrochanteric region fracture. No other fracture identified. A&P Assessment and plan (1) Intertrochanteric fracture of left femur: Plan Plan: -Hospitalist on board for medical management -Labs and imaging reviewed -N.p.o. after midnight -Nonweightbearing -DVT prophylaxis -Pain control -Patient will go to the OR tomorrow for left hip trochanteric femur nail Coding Level of Care Code Acute Code for Chg Fwd Diagnoses Intertrochanteric fracture of left femur S72.142A
[2023-03-29] VITALS (17 sets, daily range): BP systolic 80–130; BP diastolic 50–77; PULSE 60–86; RESP 12–18; TEMP 35.9–37.2; O2SAT 91–99
--- NOTE | 2023-03-29 | XR_ITS ---
WS: [id number] Exam: XR femur LT min 2V* [id number] Date/Time of Exam: 03/29/2023 12:00 AM Reason For Exam: LEFT FEMUR FX Compared with C-arm images of the LEFT femur performed earlier on the same day. There is internal fix ation involving a severely comminuted intertrochanteric fracture of the LEFT hip. A femoral neck scre w and a long intramedullary amado stabilize the fracture. Alignment appears to be satisfactory. 2 trans verse anchoring screws at the lower end of the intramedullary amado. LEFT total knee replacement noted. Postoperative changes in the adjacent soft tissues. IMPRESSION: 1. Comminuted intertrochanteric fracture of the LEFT hip stabilized in satisfactory alignment with in ternal fixation as detailed above.
[2023-03-29 05:40] LABS: Basophils # 0.1 10^3/uL (0.0-0.1); Basophils % 0.5 %; Eosinophils # 0.1 10^3/uL (0.0-0.8); Hematocrit 37.3 % (36-47); Lymphocytes # 1.8 10^3/uL (0.8-4.8); Lymphocytes % 17.4 %; Mean Corpuscular Hemoglobin 24.4 pg (27-33); Mean Corpuscular Volume 84.2 fl (85-98); Mean Platelet Volume 9.8 fL (7.4-10.4); Monocytes # 1.2 10^3/uL (0.2-0.9); Monocytes % 11.6 %; Neutrophils # 7.23 10^3/uL (1.8-7.7); Neutrophils % 68.9 %; Nucleated Red Blood Cells % 0 %; Platelet Count 312 10^3/cmm (157-399); Red Blood Count 4.43 10^6/uL (3.85-5.65); Red Cell Distribution Width 16.2 % (12.1-15.1); White Blood Count 10.47 10^3/uL (3.29-11.43)
[2023-03-29 06:01] LABS: Anion Gap 14.2 (5-19); Blood Urea Nitrogen 14 mg/dL (8-23); Calcium 8.3 mg/dL (8.5-10.5); Carbon Dioxide 25 mmol/L (22-29); Chloride 103 mmol/L (98-107); Glucose 162 mg/dL (65-115); Osmolality Calculated 290 mOsm/kg (285-295); Potassium 4.2 mmol/L (3.5-5.1); Sodium 138 mmol/L (136-145)
[2023-03-29] MEDS: morphine IR 15 mg Tablet PO (06:16)
[2023-03-29 06:30] LABS: Glucose Point of Care 179 mg/dL (70-110)
--- NOTE | 2023-03-29 07:20 | W.PM.OPSUD ---
Surgery/Procedure H&P Update DATE OF PROCEDURE: March 29, 2023 DATE H&P PERFORMED: 03/28/23 CHANGES TO PREVIOUS DOCUMENTATION: None. No change in HPI visit from consult note on 03/28/2023. Daughter who is POA is present talked about her treatment options given left intertrochanteric femur fracture would recommend left trochanteric femur nail for earlier mobilization pain control. Patient and family understands risk benefits complication alternatives with surgery and elects proceed to proceed with surgical intervention. All questions answered. We will proceed with surgery today. PREOP DIAGNOSIS: Left intertrochanteric femur fracture PRIMARY INDICATION FOR PROCEDURE: Left intertrochanteric femur fracture with subtrochanteric extension PLANNED PROCEDURE: Operation Date: 03/29/23 07:40 Proposed Procedures p Trochanteric Femoral Nail(Left) - Lee Yin DO
[2023-03-29] MEDS: sodium chloride 0.9% 1,000 ML 30 ML IV (08:02)
[2023-03-29] MEDS: ketorolac 30 mg/mL INJ IVP (08:06)
[2023-03-29] MEDS: acetaminophen 1,000 MG/100 ML PIGGYBACK 400 MG IV (08:06)
--- NOTE | 2023-03-29 08:48 | PC.PHAR ---
pt is in surgery
[2023-03-29] MEDS: ceFAZolin 2,000 MG in sodium chloride 0.9% (plus) 50 ML 100 MG IV ×2 (09:14→17:25)
--- NOTE | 2023-03-29 10:22 | SUR.OPER ---
TXA CANCELLED DUE TO RECENT STROKE PER DR ADRIAN
--- NOTE | 2023-03-29 10:27 | PM.PN ---
Subjective Subjective: Status post surgical intervention No overnight events Hemodynamically stable Vitals/I&O/Wt Last Vital Signs Temp 97.7 F 03/29/23 07:25 Pulse 86 03/29/23 07:25 Resp 18 03/29/23 07:25 BP 130/77 03/29/23 07:25 Pulse Ox 91 03/29/23 07:25 O2 Del Method Room Air 03/29/23 08:00 O2 Flow Rate 2 03/29/23 07:25 03/28/23 03/29/23 03/29/23 22:59 06:59 14:59 Intake Total 480 / 480 150 / 150 Output Total 200 / 200 400 / 600 Balance 280 / 280 -400 / -120 150 / 150 Weight last 48 hrs Weight 96.814 kg Physical Exam Narrative: Pleasant and cooperative Currently, Hemodynamic stable Nonfocal neuro exam Status post intervention Abdomen soft Variable S1-S2 Doing better on room air Urinary Catheter Management: Carranza: Cath Placed During This Visit: no Reason for Continuing Indwelling Catheter: Other Data 03/29/23 05:29 03/29/23 05:29 A&P Assessment and plan (1) Intertrochanteric fracture of left femur: (2) HTN (hypertension): Qualifiers: Hypertension type: primary hypertension Qualified Code(s): I10 - Essential (primary) hypertension (3) Atrial flutter, paroxysmal: (4) History of atrial fibrillation: (5) Chronic anemia: Plan Hip fracture status post intervention We will follow-up with PT to see if patient is safe to return to her facility versus rehab Chronic macrocytic anemia check iron level Hemodynamically stable Currently on room air No need of Carranza catheter Full code Start cardiac diet Start DVT prophylaxis Attestations Medical Necessity Statement*: Continue medical management Diagnoses Intertrochanteric fracture of left femur S72.142A HTN (hypertension) I10 Hypertension type: primary hypertension Atrial flutter, paroxysmal I48.92 History of atrial fibrillation Z86.79 Chronic anemia D64.9
--- NOTE | 2023-03-29 10:58 | PM.OP2 ---
Brief Operative Note Date of procedure: 03/29/23 Pre-op diagnosis: Left intertrochanteric femur fracture Post-op diagnosis: same Procedure Done: Left trochanteric femoral nail Surgeon: Lee Yin Estimated blood loss (mL): 100 Complications: none Post-op Plan: Hospitalist on board for medical management Weightbearing as tolerated to the operative extremity Ice as needed for pain and swelling Encourage knee and hip range of motion as tolerated PT/OT Pain control DVT prophylaxis Leave Silverlon dressings on and in place for 7 days. After this they may be removed you may shower/rinse incisions with warm soapy water, pat dry redress with a dry dressing. Okay to sponge bath/shower with Silverlon dressings as they should be waterproof however if they do get saturated or wet please take these off dry the incision and redressed with a new dry sterile bandage. Follow-up in the orthopedic office with Dr. Yin in 2 weeks for repeat x-rays and incision check/staple removal Contact the office for any questions or concerns (i.e. increasing redness and drainage around the incision, fevers, or chills, or severe worsening in pain/change in symptoms) Condition: stable Disposition: PACU Coding Level of Care Code Acute Code for Zohra Hillman
[2023-03-29 11:07] LABS: Iron 23 ug/dL (37-145); Percent Saturation 8.4 % (20-50); Total Iron Binding Capacity 273 mcg/dl; Unsaturated Iron Binding 250 ug/dL (112-347)
--- NOTE | 2023-03-29 11:08 | PM.PACU ---
PACU note Narrative: Patient is an 88-year-old female that just underwent left femoral troch nail procedure for left intertrochanteric femur fracture. Pt transferred to PACU in stable condition. Dressing is dry. Distal pulses are palpable toes are warm and well-perfused. Cap refill is normal and under 2 seconds. Unable to perform rest of exam due to patient still being under the influence of anesthesia. Exam: unarousable Disposition: back to floor
--- NOTE | 2023-03-29 11:13 | P.OP_ITS ---
Operative Report Date of procedure: March 29, 2023 Surgeon: Lee Yin DO Procedure: Preoperative diagnosis: Left displaced intertrochanteric femur fracture with subtrochanteric extension Post-op diagnosis: Same Procedure done: ?Left?intertrochanteric femur fracture ORIF with cephalomedullary nail Implants: [place] gamma nail long 11 mm x 380 mm x 125 degree Lag screw 10.5 mm x 115?mm Distal locking screws 5 mm x?52.5 and 5 mm x 47.5?mm Surgeon: Lee Yin DO Estimated blood loss: 100 mL mm IV fluids: See anesthesia record Urine output: See anesthesia record Complications: See operative report Findings: See operative report narrative Condition: stable Disposition: Floor Brief History: Patient sustained a fall and was found to have a Left intertrochanteric hip fx with subtrochanteric extension.?Pt has?been unable to bear weight, Left?hip/lower extremity shortened and externally rotated.? At this point time Pt?was admitted by the hospitalist team and orthopedics was consulted.??Refer to consult note for detailed HPI.??We talked about treatment options as far as nonoperative and operative intervention. Recommend?Left?hip?trochanteric femur nail. Plan was for long nail fixation given a small nondisplaced fracture line that appeared to go into the subtrochanteric region. At this point time patient and family would like to pursue surgical intervention for benefits of pain c ontrol and earlier mobilization.?? Patient and family understands the ins and outs of procedure, the risk benefits complication alternatives of surgical nonsurgical treatment options.? Understanding risk of surgery?pt?agrees to proceed with surgical intervention all questions answered.? Consent obtained from daughter who is her POA Procedure: Patient seen evaluated in the preoperative holding area.? Consent was obtained.? Correct extremity was then marked.? Once cleared by anesthesia and the hospitalist team patient was taken back to the operative suite.? Patient underwent anesthesia per the anesthesia department.? Once appropriately anesthetized patient was placed on a fracture [place] table.? Patient was appropriately secured to the bed.? All bony prominences were well-padded.? At this point time patient received appropriate preoperative antibiotics.? Final timeout was performed.? Prior to beginning surgery a standard closed reduction maneuver was placed on the [place] table and large C-arm was brought in.? After performing a closed reduction maneuver there was able to achieve satisfactory reduction of Left?intertrochanteric femur fracture.? Fracture site did extend into the subtrochanteric region as result plan was for a long nail.?? This point time the right lower extremity was then prepped and draped in standard orthopedic fashion. A standard longitudinal incision was made just proximal to the greater?trochanter roughly 4 cm in length sharp scalpel vision was made through skin and subcutaneous tissue.? I then utilized a blunt La to split? fascia and mobilized directly down to the greater?trochanter.? I then inserted my starting guidewire which was placed appropriate starting position the tip of the greater?trochanter.? This was advanced in AP and lateral films to be in center center position and advanced to the level lesser?trochanter.? This was confirmed to be in center center position on AP and lateral imaging.? Once this was done I then introduced my opening reamer which was then subsequently guide pin removed.? I then subsequently placed a long ball-tipped guidewire that was placed in center center position distally just above the suprapatellar pole. Once satisfied with this position I took appropriate measurements which was this was measured to be 380 mm. I then sequentially reamed to [place] at 13 mm and selected an 11 mm x 380 mm x 125 degree nail . At this point time the nail was then loaded onto the [place] gamma?trochanteric nail guide.? This was placed within the canal and confirmed with XR, guide wire removed and and the setscrew was then gently placed not locked.? The nail was then impacted to appropriate depth .? I then in order to obtain better reduction of femoral neck as there was significant varus and impaction of the basicervical intertrochanteric portion I utilized a La to disimpact this from the superior incision and disengages and aligned this with the inferior and medial cortex this was held in place by my veterinary technician assistant while the reduction was held we then advanced for lag screw fixation. At this point time I then inserted my lag screw guide and subsequently made a small incision through skin and subcutaneous tissue splitting the IT band longitudinally and the guide was placed directly onto bone.? Next I then subsequently placed the guidewire in center center position in the head with an appropriate tip to apex distance this was confirmed with multiple orthogonal images.? Once I was satisfied with my planned lag screw placement I then measured which was?115?mm.? I then set my cannulated drill and subsequently reamed this into the head at appropriate depth.? I then had my rep open the 10.5 mm x?115?mm lag screw which was then opened on the back table and subsequently screwed into place over my cannulated drill guide.? This was placed with excellent tip to apex distance.? Next I then utilized the compressing device and subsequently compressed my fracture after I let off traction.? This had excellent fracture compression and opposition and closing down to my fracture line.? Next I then locked the nail by locking my setscrew.? This point time the guidewire as well as the sleeve was then removed.? Next turned my attention towards my distal fixation. Distal fixation I plan to place 2 screws distally utilizing perfect ely [place] freehand technique. Fluoroscopic imaging was then used to obtain perfect circles distally 2 small stab incisions were made 1 with a static hole and 1 in the oblong in the dynamic position. These were then subsequently drilled measured and appropriate length screws were then placed with excellent fixation and confirmed to be in appropriate position. Screws were measured to being 52.5 mm and 47.5 mm this completed my construct fixation. This point time is completed my construct I remove the outer jig and took final images of AP and lateral of the Left?intertrochanteric femur fracture which showed stable reduction and stable fixation.? Incision was then thoroughly irrigated.? Hemostasis was maintained with electrocautery.? I then once again thoroughly irrigated the incisions and then subsequently closed in layered fashion of 0 Vicryl 2-0 Vicryl and param.? Silverlon dressings applied.? Patient was then awakened from anesthesia transported onto the hospital bed and taken to PACU in stable condition.? Patient tolerated procedure without complications. Disposition: Patient taken to PACU in stable condition.? Postoperatively,? Patient to receive appropriate discharge instructions as well as pain medication DVT prophylaxis postoperatively.? She will be allowed weightbearing as tolerated Left?lower extremity.? Will receive appropriate postoperative antibiotics, PT/OT.? Patient to follow-up in the orthopedic office in 2 weeks.? Patients family understands and agrees with current plan.? All questions answered.
--- NOTE | 2023-03-29 11:44 | XR_ITS ---
WS: [id number] Exam: XR femur LT 1V [id number] Date/Time of Exam: 03/29/2023 11:44 AM Reason For Exam: OR PICS Intraoperative AP and lateral C-arm images of the LEFT femur are submitted for evaluation. A comminuted intertrochanteric fracture of the LEFT hip is noted stabilized with a femoral neck screw and long intramedullary amado in the femoral shaft. There is avulsion and separation of the lesser tro chanter. The fracture appears to be in satisfactory alignment. Incidentally noted is total LEFT knee replacement.
--- NOTE | 2023-03-29 11:46 | ANES.PREANE2 ---
Pre-Anesthetic Assessment Height/Weight: Height 1.73 m Weight 96.814 kg Temp Pulse Resp BP Pulse Ox O2 Del Method O2 Flow Rate 98.0 F 64 16 96/54 96 Nasal Cannula 2 03/29/23 11:35 03/29/23 11:35 03/29/23 11:35 03/29/23 11:35 03/29/23 11:35 03/29/23 11:35 03/29/23 11:35 Preop Diagnosis: Left intertrochanteric femur fracture Operation Date: 03/29/23 07:40 Proposed Procedures p Trochanteric Femoral Nail(Left) - Lee Annamaria, DO Familial anesthetic complications: none Was Beta Carola taken within 24 hours: N/A Was Clonidine taken within 24 hours: N/A Last intake: Intake Last Liquid Date 03/28/23 Last Liquid Time 21:00 Last Solid Date 03/28/23 Last Solid Time 17:30 Social No alcohol and No tobacco Exam alert, oriented x 3, clear to auscultation bilaterally and regular rate & rhythm Airway Submandibular: within normal limits Cervical ROM: within normal limits Mallampati: Class II Dentition: chipped CV/HEM Atrial Fibrillation and Anemia Metabolic Diabetes Mellitus, Hyperlipidemia, Morbid Obesity and Thyroid Disease Neuropsych Dementia Anesthetic Plan ASA status: 3 Anesthesia: General Medications/Allergies Home Medications Medication Instructions Recorded Confirmed Last Taken Type sitagliptin phosphate 50 mg tablet 50 mg PO DAILY 08/01/20 12/24/22 Unknown History (Januvia) acetaminophen 325 mg tablet 325 mg PO QID PRN 06/25/22 12/24/22 Unknown History albuterol sulfate 90 mcg/actuation 2 puff inhalation Q6H PRN 06/25/22 12/24/22 Unknown History aerosol inhaler escitalopram oxalate 10 mg tablet 10 mg PO DAILY 06/25/22 12/24/22 Unknown History famotidine 20 mg tablet 20 mg PO BID 06/25/22 12/24/22 Unknown History amiodarone 200 mg tablet 200 mg PO DAILY #90 tabs 12/24/22 12/24/22 Unknown Rx atorvastatin 40 mg tablet 40 mg PO DAILY #90 tabs 12/24/22 12/24/22 Unknown Rx diclofenac sodium 1 % topical gel 2 g topical QID PRN 12/24/22 12/24/22 Unknown History (Arthritis Pain (diclofenac)) furosemide 40 mg tablet 20 mg PO DAILY #45 tabs 12/24/22 12/24/22 Unknown Rx guaifenesin 1,200 mg tablet, 1,200 mg PO Q12H PRN 12/24/22 12/24/22 Unknown History extended release 12 hr (Mucinex) guaifenesin 100 mg/5 mL oral liquid 200 mg PO Q4H PRN 12/24/22 12/24/22 Unknown History levothyroxine 50 mcg tablet 50 mcg PO DAILY 12/24/22 12/24/22 Unknown History loperamide 2 mg tablet 2 mg PO Q6H PRN 12/24/22 12/24/22 Unknown History (Anti-Diarrheal (loperamide)) metoprolol tartrate 50 mg tablet 25 mg PO BID #90 tabs 12/24/22 12/24/22 Unknown Rx nystatin 100,000 unit/gram topical 1 applic topical DAILY PRN 12/24/22 12/24/22 Unknown History powder potassium chloride 20 mEq 20 meq PO DAILY #90 tabs 12/24/22 12/24/22 Unknown Rx tablet,extended release simethicone 125 mg chewable tablet 125 mg PO TID PRN 12/24/22 12/24/22 Unknown History (Gas Relief (simethicone)) Allergies Allergy/AdvReac Type Severity Reaction Status Date / Time No Known Allergies Allergy Verified 12/08/22 11:21 Current Medications Generic Name Dose Route Start Last Admin Trade Name Freq PRN Reason Stop Dose Admin Hydromorphone HCl 0.4 mg 03/28/23 17:01 03/28/23 17:29 Hydromorphone 1 Mg/Ml Inj 1 Ml IVP 0.4 mg Q4H PRN Administration pain Sodium Chloride 1,000 mls @ 30 mls/hr 03/29/23 08:00 03/29/23 08:02 Sodium Chloride 0.9% IV 03/30/23 07:59 30 mls/hr .Q24H TEVIN Administration Insulin Human Lispro 0 unit 03/28/23 18:00 03/28/23 18:15 Insulin Lispro 100 Unit/1 Ml SUBCUT 6 unit TIDWM TEVIN Administration Protocol Metoprolol Tartrate 25 mg 03/28/23 18:00 03/28/23 17:31 Metoprolol Tartrate 50 Mg Tablet PO 25 mg BID TEVIN Administration Morphine Sulfate 15 mg 03/28/23 17:01 03/29/23 06:16 Morphine Ir 15 Mg Tablet PO 15 mg Q6H PRN Administration pAIN PFSH Anesthesia Medical History (Updated 03/29/23 @ 10:31 by Gorge Salazar MD) Atrial fibrillation with RVR CHF (congestive heart failure) -clinically euvolemic -Echo: EF=55%, no RWMA, mild MR, trace to mild TR CVA (cerebral vascular accident) 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 Generalized weakness -secondary to infection and CVA -has been improving with therapy History of atrial fibrillation History of vaginal delivery HTN (hypertension) Hx of non-insulin dependent diabetes mellitus -A1c-7.8 -d/c on metformin Hx of urinary tract infection NSTEMI (non-ST elevated myocardial infarction) Surgical History (Updated 03/29/23 @ 10:26 by Gorge Salazar MD) H/O total knee replacement History of right knee joint replacement Hx of cholecystectomy Status post knee replacement Family History Mother Diabetes Father CHF (congestive heart failure) Social History Smoking and tobacco status: never smoked Alcohol intake: never Substance/Drug Use: never Data Anesthesia 03/29/23 05:29 03/29/23 05:29 Short CBC 03/28/23 03/29/23 Range/Units 15:47 05:29 WBC 10.83 10.47 (3.29-11.43) 10^3/uL Hgb 11.40 10.80 L (11.27-16.99) g/dL Hct 40.6 37.3 (36-47) % MCV 85.8 84.2 L (85-98) fl Plt Count 255 312 (157-399) 10^3/cmm Neut % (Auto) 83.7 68.9 % Neut # (Auto) 9.07 H 7.23 (1.8-7.7) 10^3/uL BMP 03/28/23 03/29/23 15:47 05:29 Sodium 136 138 Potassium 4.4 4.2 Chloride 104 103 Carbon Dioxide 20 L 25 BUN 14 14 Creatinine 1.0 H 1.1 H Glucose 190 H 162 H Calcium 8.6 8.3 L Liver Function 03/28/23 Range/Units 15:47 Total Bilirubin 0.7 (0.15-1.2) mg/dL AST 63 H (0-32) U/L ALT 24 (0-33) U/L Alkaline Phosphatase 105 (35-105) U/L Albumin 3.2 L (3.5-5.2) g/dL Blood Bank 03/28/23 15:47 Blood Type O Positive Rho(D) Type Positive Antibody Screen Negative Coags 03/28/23 15:47 PT 14.50 INR 1.10 Cardiac Studies: Echocardiogram 05/27/20 Echocardiogram Ultrasound 05/25/20
[2023-03-29] MEDS: oxyCODONE 5 mg IR Tab/Cap PO (15:48)
[2023-03-29] MEDS: acetaminophen 500 mg Tablet 1000 MG PO (15:48)
--- NOTE | 2023-03-29 17:03 | ANE.PACU2 ---
Inpatient post-anesthesia follow up: Airway intact: Yes Vital signs: Temperature 96.6 F Pulse Rate 83 Respiratory Rate 18 Blood Pressure 98/67 Pulse Oximetry 94 Oxygen Delivery Me thod Nasal Cannula Oxygen Flow Rate 2 Fraction of Inspir ed Oxygen Hydration adequate: Yes Nausea and vomiting: No Pain level: 2 Mental status: Baseline
[2023-03-29] MEDS: iron polysaccharide complex 150 mg Capsule PO (18:04)
[2023-03-29] MEDS: docusate sodium 100 mg Capsule PO (18:04)
[2023-03-29] MEDS: insulin lispro 100 unit/1 mL SUBCUT (18:04)
[2023-03-29] MEDS: enoxaparin 40 mg/0.4 mL Syringe SUBCUT (18:04)
[2023-03-29] MEDS: calcium carb-vit d 600mg/400unit 1 Tablet 1 EACH PO (18:04)
[2023-03-29 18:05] LABS: Glucose Point of Care 258 mg/dL (70-110)
[2023-03-29] MEDS: chlorhexidine gluconate 0.12% Btl 473 mL 30 ML MUCOUS MEM (18:05)
[2023-03-29] MEDS: mupirocin oint 22 gm 1 APPLIC NASAL (18:05)
[2023-03-29 20:27] LABS: Glucose Point of Care 193 mg/dL (70-110)
[2023-03-30] VITALS (10 sets, daily range): BP systolic 90–119; BP diastolic 54–64; PULSE 58–85; RESP 13–18; TEMP 36.4–36.9; O2SAT 90–95
[2023-03-30] MEDS: ceFAZolin 2,000 MG in sodium chloride 0.9% (plus) 50 ML 100 MG IV ×2 (00:26→08:51)
[2023-03-30] MEDS: acetaminophen 500 mg Tablet 1000 MG PO ×3 (00:26→15:53)
[2023-03-30 06:11] LABS: Basophils % 0.2 %; Lymphocytes % 9.6 %; Mean Corpuscular HGB Conc 29.7 g/dL (30-55); Mean Corpuscular Hemoglobin 24.7 pg (27-33); Mean Corpuscular Volume 83.1 fl (85-98); Mean Platelet Volume 10.2 fL (7.4-10.4); Monocytes # 1.1 10^3/uL (0.2-0.9); Monocytes % 10.3 %; Neutrophils # 8.54 10^3/uL (1.8-7.7); Neutrophils % 79.4 %; Nucleated Red Blood Cells % 0 %; Platelet Count 298 10^3/cmm (157-399); Red Blood Count 3.97 10^6/uL (3.85-5.65); Red Cell Distribution Width 16.5 % (12.1-15.1); White Blood Count 10.75 10^3/uL (3.29-11.43)
[2023-03-30 06:34] LABS: Glucose Point of Care 146 mg/dL (70-110)
[2023-03-30 06:38] LABS: Anion Gap 16.1 (5-19); Blood Urea Nitrogen 25 mg/dL (8-23); Calcium 8.5 mg/dL (8.5-10.5); Carbon Dioxide 23 mmol/L (22-29); Chloride 103 mmol/L (98-107); Glucose 135 mg/dL (65-115); Osmolality Calculated 290 mOsm/kg (285-295); Potassium 5.1 mmol/L (3.5-5.1); Sodium 137 mmol/L (136-145)
[2023-03-30] MEDS: calcium carb-vit d 600mg/400unit 1 Tablet 1 EACH PO ×2 (07:49→17:27)
[2023-03-30] MEDS: multivitamin therapeutic Tablet 1 TAB PO (07:49)
[2023-03-30] MEDS: levothyroxine 50 mcg Tablet PO (07:49)
[2023-03-30] MEDS: iron polysaccharide complex 150 mg Capsule PO ×2 (07:50→17:27)
--- NOTE | 2023-03-30 07:59 | P.PN_ITS ---
Patient was seen and examined and discussed with her daughter is at bedside. Patient will continue to work with therapy. They understand and agree with current plan. All questions answered. We will follow patient 1 more additional day. Labs reviewed. Plan will be to follow-up with us in 2 weeks upon discharge. Looking at rehab facility for discharge. Lee Yin DO Subjective Subjective: Patient is a 88-year-old female who is 1 day post left troch long nail. No acute issues overnight. PT has been unable to get patient up to ambulate due to low blood pressures. Physical therapy to try to get patient up today if her blood pressures improved. Vitals/I&O/Wt Last Vital Signs Temp 97.8 F 03/30/23 05:00 Pulse 58 L 03/30/23 05:00 Resp 18 03/30/23 05:00 BP 119/64 03/30/23 05:00 Pulse Ox 95 03/30/23 05:00 O2 Del Method Nasal Cannula 03/29/23 18:03 O2 Flow Rate 2 03/29/23 18:03 03/29/23 03/30/23 03/30/23 22:59 06:59 14:59 Intake Total 530 / 935.5 170 / 1105.5 Output Total 300 / 650 Balance 530 / 585.5 -130 / 455.5 Weight last 48 hrs Weight 213 lb 7 oz Physical Exam Const: COMMON NORMALS: alert Resp: COMMON NORMALS: normal respiratory effort EFFORT & INSPECTION: No respiratory distress Extremity: NARRATIVE EXTREMITY EXAM: Left hip?dressings on, dry and intact. No significant swelling or ecchymosis seen. Toes are warm and well-perfused. Normal cap refill 2 seconds. Patient can wiggle her toes. Plantarflex and dorsiflex intact. Neuro: SENSORIUM/ORIENTATION: Yes alert Skin: GENERAL SKIN EXAM: dry skin Urinary Catheter Management: Carranza: Cath Placed During This Visit: no Reason for Continuing Indwelling Catheter: Perioperative Use in Selected Surgeries Data 03/30/23 05:20 03/30/23 05:20 Xray Ortho: Radiologist's impression: [facility] [place] [address] XRay Report Signed Patient: Daily Barreto Unit #: [id number] : 1935 Age/Sex: 88 / F ADM Date: 03/28/23 Loc: [facility] Room/Bed: [facility] Attending Dr: Gorge Salazar MD Ordering Provider/Ordering MD: Gorge Salazar MD Date of Service: 03/29/23 Procedure(s): XR femur LT min 2V* [id number] Accession Number(s): [id number] Report Number: [id number]: [id number] Exam: XR femur LT 1V [id number] Date/Time of Exam: 03/29/2023 11:44 AM Reason For Exam: OR PICS Intraoperative AP and lateral C-arm images of the LEFT femur are submitted for evaluation. A comminuted intertrochanteric fracture of the LEFT hip is noted stabilized with a femoral neck screw and long intramedullary amado in the femoral shaft. There is avulsion and separation of the lesser trochanter. The fracture appears to be in satisfactory alignment. Incidentally noted is total LEFT knee replacement. A&P Assessment and plan (1) Intertrochanteric fracture of left femur: Plan Plan: -Hospitalist on board for medical management -Labs and imaging reviewed -Progress weightbearing as tolerated -PT/OT -DVT prophylaxis -Pain control -Do not change surgical dressing, call Ortho if any surgical site drainage or saturated dressing Attestations Medical Necessity Statement*: ongoing care for left intertrochanteric hip fracture Coding Level of Care Code Acute Code for Chg Fwd Diagnoses Intertrochanteric fracture of left femur S72.142A
[2023-03-30] MEDS: chlorhexidine gluconate 0.12% Btl 473 mL 30 ML MUCOUS MEM ×4 (08:55→20:21)
[2023-03-30] MEDS: mupirocin oint 22 gm 1 APPLIC NASAL ×2 (08:55→18:22)
[2023-03-30] MEDS: insulin lispro 100 unit/1 mL SUBCUT ×2 (09:01→17:35)
[2023-03-30] MEDS: sodium chloride 0.9% 1,000 ML 999 ML IV (09:37)
--- NOTE | 2023-03-30 09:57 | P.PN_ITS ---
Subjective Subjective: Blood pressure is low I will give her 1 L bolus of normal saline hold Lasix Patient is endorsing feeling better Getting PT in her bed We will need SNF Drop of hemoglobin 9.8 noted No tachycardia hold metoprolol Vitals/I&O/Wt Last Vital Signs Temp 98.1 F 03/30/23 08:00 Pulse 66 03/30/23 08:55 Resp 16 03/30/23 08:55 BP 90/56 03/30/23 08:00 Pulse Ox 94 03/30/23 08:55 O2 Del Method Room Air 03/30/23 08:55 O2 Flow Rate 2 03/29/23 18:03 03/29/23 03/30/23 03/30/23 22:59 06:59 14:59 Intake Total 530 / 935.5 170 / 1105.5 290 / 290 Output Total 300 / 650 Balance 530 / 585.5 -130 / 455.5 290 / 290 Weight last 48 hrs Weight 96.814 kg Physical Exam Narrative: Patient is awake and alert Clinical signs of dehydration Abdomen distended bowel sound present Gaseous distention S1, S2 variable Currently on room air Dry skin with cracked lips Awake and alert and pleasant Working with PT Nonfocal neuro exam Urinary Catheter Management: Carranza: Cath Placed During This Visit: no Reason for Continuing Indwelling Catheter: Perioperative Use in Selected Surgeries Data 03/30/23 05:20 03/30/23 05:20 A&P Assessment and plan (1) Chronic anemia: (2) Intertrochanteric fracture of left femur: (3) HTN (hypertension): Qualifiers: Hypertension type: primary hypertension Qualified Code(s): I10 - Essential (primary) hypertension (4) Atrial flutter, paroxysmal: (5) Diabetes mellitus type II, controlled: Qualifiers: 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: without intermodal customer service use Diabetes mellitus complication status: without complication Qualified Code(s): E11.9 - Type 2 diabetes mellitus without complications Plan Hip fracture status post intervention Drop of hemoglobin noted Patient is hypotensive however no tachycardia I will give her 1 L bolus today for low blood pressure Patient is asymptomatic Working with PT in her bed We will need SNF A-fib without RVR hold metoprolol because of low blood pressure she has not taken anticoagulating agent in a long time Continue amiodarone Postop passing flatus, no BM yet, she is on cardiac diet Monitor bowel movement Add monika S Will need SNF placement Cardiac diet Full code Acute on chronic postop anemia no active bleeding noted Attestations Medical Necessity Statement*: Continue medical management Diagnoses Chronic anemia D64.9 Intertrochanteric fracture of left femur S72.142A HTN (hypertension) I10 Hypertension type: primary hypertension Atrial flutter, paroxysmal I48.92 Diabetes mellitus type II, controlled E11.9 Diabetes mellitus prison insulin use: without prison use Diabetes mellitus complication status: without complication
[2023-03-30 10:40] LABS: Thyroid Stimulating Hormone 1.12 uIU/mL (0.27-4.20)
--- NOTE | 2023-03-30 11:02 | PC.PHAR ---
pt is from [facility]-medications entered are from the paperwork that was sent with the pt from the physician order report from 02/25/23-03/28/23
[2023-03-30 11:19] LABS: Glucose Point of Care 119 mg/dL (70-110)
[2023-03-30] MEDS: TRAMadol 50 mg Tablet PO ×2 (12:10→17:27)
[2023-03-30 16:11] LABS: Glucose Point of Care 147 mg/dL (70-110)
[2023-03-30] MEDS: docusate sodium 100 mg Capsule PO (17:27)
[2023-03-30] MEDS: enoxaparin 30 mg/0.3 mL Syringe SUBCUT (17:27)
[2023-03-30 21:44] LABS: Glucose Point of Care 136 mg/dL (70-110)
[2023-03-31] VITALS (7 sets, daily range): BP systolic 98–115; BP diastolic 55–70; PULSE 77–102; RESP 14–18; TEMP 36.3–37; O2SAT 90–92
[2023-03-31 05:58] LABS: Basophils # 0.1 10^3/uL (0.0-0.1); Basophils % 0.5 %; Eosinophils # 0.3 10^3/uL (0.0-0.8); Eosinophils % 2.5 %; Hematocrit 30.9 % (36-47); Lymphocytes # 1.9 10^3/uL (0.8-4.8); Lymphocytes % 16.9 %; Mean Corpuscular HGB Conc 29.4 g/dL (30-55); Mean Corpuscular Hemoglobin 24.4 pg (27-33); Mean Corpuscular Volume 82.8 fl (85-98); Mean Platelet Volume 10.3 fL (7.4-10.4); Monocytes # 1.2 10^3/uL (0.2-0.9); Monocytes % 10.4 %; Neutrophils # 7.86 10^3/uL (1.8-7.7); Neutrophils % 68.8 %; Nucleated Red Blood Cells % 0 %; Platelet Count 282 10^3/cmm (157-399); Red Blood Count 3.73 10^6/uL (3.85-5.65); Red Cell Distribution Width 16.6 % (12.1-15.1); White Blood Count 11.42 10^3/uL (3.29-11.43)
[2023-03-31 06:21] LABS: Magnesium 1.9 mg/dL (1.7-2.3)
[2023-03-31 06:23] LABS: Anion Gap 14.3 (5-19); Blood Urea Nitrogen 33 mg/dL (8-23); Calcium 8.6 mg/dL (8.5-10.5); Carbon Dioxide 24 mmol/L (22-29); Chloride 100 mmol/L (98-107); Glucose 103 mg/dL (65-115); Osmolality Calculated 286 mOsm/kg (285-295); Potassium 4.3 mmol/L (3.5-5.1); Sodium 134 mmol/L (136-145)
[2023-03-31 07:25] LABS: Glucose Point of Care 127 mg/dL (70-110)
[2023-03-31] MEDS: calcium carb-vit d 600mg/400unit 1 Tablet 1 EACH PO ×2 (08:11→18:00)
[2023-03-31] MEDS: acetaminophen 500 mg Tablet 1000 MG PO ×2 (08:11→16:19)
[2023-03-31] MEDS: amiodarone 200 mg Tablet PO (08:11)
[2023-03-31] MEDS: sennosides-docusate Tablet 1 TAB PO (08:11)
[2023-03-31] MEDS: iron polysaccharide complex 150 mg Capsule PO ×2 (08:11→18:00)
[2023-03-31] MEDS: multivitamin therapeutic Tablet 1 TAB PO (08:12)
[2023-03-31] MEDS: FUROsemide 40 mg Tablet 20 MG PO (08:12)
[2023-03-31] MEDS: levothyroxine 50 mcg Tablet PO (08:13)
[2023-03-31] MEDS: mupirocin oint 22 gm 1 APPLIC NASAL ×2 (08:14→18:01)
[2023-03-31] MEDS: docusate sodium 100 mg Capsule PO ×2 (08:14→18:00)
[2023-03-31] MEDS: chlorhexidine gluconate 0.12% Btl 473 mL 30 ML MUCOUS MEM ×4 (08:26→20:12)
[2023-03-31] MEDS: oxyCODONE 5 mg IR Tab/Cap PO ×2 (09:01→16:18)
--- NOTE | 2023-03-31 09:44 | PM.PN ---
Subjective Subjective: Creatinine has worsened Adequate urine output Blood pressure is better today Awaiting prior Auth for swing bed at [facility] Patient to work with PT today Not endorsing significant pain Vitals/I&O/Wt Last Vital Signs Temp 98.2 F 03/31/23 07:33 Pulse 89 03/31/23 07:33 Resp 17 03/31/23 09:01 BP 106/65 03/31/23 07:33 Pulse Ox 90 03/31/23 07:33 O2 Del Method Room Air 03/31/23 08:00 O2 Flow Rate 2 03/29/23 18:03 03/30/23 03/31/23 03/31/23 22:59 06:59 14:59 Intake Total 360 / 1890 240 / 240 Output Total 550 / 550 200 / 750 Balance -190 / 1340 -200 / 1140 240 / 240 Physical Exam Narrative: Patient is awake and alert Laying supine Able to answer my questions GCS 15 Asymptomatic Carranza catheter with concentrated urine Abdomen soft Bowel sound present S1, S2 Urinary Catheter Management: Carranza: Cath Placed During This Visit: no Reason for Continuing Indwelling Catheter: Required Immobilization for Trauma or Surgery or Anesthesia Data 03/31/23 05:19 03/31/23 05:19 A&P Assessment and plan (1) Chronic anemia: (2) Intertrochanteric fracture of left femur: (3) HTN (hypertension): Qualifiers: Hypertension type: primary hypertension Qualified Code(s): I10 - Essential (primary) hypertension (4) Atrial flutter, paroxysmal: (5) Diabetes mellitus type II, controlled: Qualifiers: Diabetes mellitus halfway insulin use: without halfway use Diabetes mellitus complication status: without complication Qualified Code(s): E11.9 - Type 2 diabetes mellitus without complications (6) Acute kidney injury superimposed on chronic kidney disease: Plan Hip fracture status post intervention Postoperative anemia noted Blood pressure is better today Acute on chronic kidney disease, monitor kidney function, adequate urine output I will like to keep Carranza catheter in for 1 more day to monitor her urine output and correlate with her creatinine I am sure this is related to low blood pressure, will discontinue ketorolac Holding Lasix for low blood pressure Hold metoprolol as well Continue levothyroxine Continue amiodarone Patient has not taken anticoagulating agent for A-fib for quite a while Currently she is on Lovenox DVT prophylactic regimen work with PT today Attestations Medical Necessity Statement*: Awaiting placement, prior Auth is pending for swing bed Diagnoses Chronic anemia D64.9 Intertrochanteric fracture of left femur S72.142A HTN (hypertension) I10 Hypertension type: primary hypertension Atrial flutter, paroxysmal I48.92 Diabetes mellitus type II, controlled E11.9 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
[2023-03-31 11:26] LABS: Glucose Point of Care 188 mg/dL (70-110)
[2023-03-31] MEDS: insulin lispro 100 unit/1 mL SUBCUT (12:00)
--- NOTE | 2023-03-31 14:23 | PC.SOCIAL ---
IMM Update pg 2 of IMM updated and reviewed w/ patient. Copy provided and copy in chart dated and initialed.
[2023-03-31] MEDS: escitalopram 10 mg Tablet PO (14:30)
--- NOTE | 2023-03-31 14:56 | PM.PN ---
Subjective Subjective: Patient is a 88-year-old female that is 2 days postop for left Femoral Troch nail to treat a left intertrochanteric femur fracture. No acute events overnight. Blood pressure has gotten better today and patient will be working with PT today. Does not endorse any acute or significant pain. Vitals/I&O/Wt Last Vital Signs Temp 97.5 F L 03/31/23 12:00 Pulse 102 H 03/31/23 12:00 Resp 18 03/31/23 12:00 BP 100/63 03/31/23 12:00 Pulse Ox 90 03/31/23 12:00 O2 Del Method Room Air 03/31/23 12:00 O2 Flow Rate 2 03/29/23 18:03 03/30/23 03/31/23 03/31/23 22:59 06:59 14:59 Intake Total 360 / 1890 480 / 480 Output Total 550 / 550 200 / 750 Balance -190 / 1340 -200 / 1140 480 / 480 Physical Exam Const: COMMON NORMALS: alert Resp: COMMON NORMALS: normal respiratory effort EFFORT & INSPECTION: No respiratory distress Extremity: NARRATIVE EXTREMITY EXAM: Left hip?dressings on, dry and intact. No significant swelling or ecchymosis seen. Toes are warm and well-perfused. Normal cap refill 2 seconds. Patient can wiggle her toes. Plantarflex and dorsiflex intact. Neuro: SENSORIUM/ORIENTATION: Yes alert Skin: GENERAL SKIN EXAM: dry skin Urinary Catheter Management: Carranza: Cath Placed During This Visit: no Reason for Continuing Indwelling Catheter: Required Immobilization for Trauma or Surgery or Anesthesia Data 03/31/23 05:19 03/31/23 05:19 A&P Assessment and plan (1) Intertrochanteric fracture of left femur: Plan Plan: -Hospitalist on board for medical management -Labs and imaging reviewed-hemoglobin stable -Progress weightbearing as tolerated -Continue PT/OT -DVT prophylaxis -Pain control -Do not change surgical dressing, call Ortho if any surgical site drainage or saturated dressing. -Patient can follow-up at orthopedic clinic in 2 weeks. -Patient is cleared from an orthopedic standpoint and we will follow peripherally. Patient set up to go to [facility] for inpatient rehab likely tomorrow. Attestations Medical Necessity Statement*: Ongoing care for left intertrochanteric femur fracture Coding Level of Care Code Acute Code for Chg Fwd Diagnoses Intertrochanteric fracture of left femur S72.142A
[2023-03-31 16:22] LABS: Glucose Point of Care 201 mg/dL (70-110)
[2023-03-31 16:27] LABS: SARS Covid-2 Antigen negative (Negative)
[2023-03-31] MEDS: enoxaparin 30 mg/0.3 mL Syringe SUBCUT (18:00)
[2023-03-31 22:03] LABS: Glucose Point of Care 212 mg/dL (70-110)
[2023-04-01] VITALS: BP 101/61; PULSE 88; RESP 18; TEMP 36.8; O2SAT 93
[2023-04-01] MEDS: acetaminophen 500 mg Tablet 1000 MG PO ×2 (00:06→08:19)
[2023-04-01 04:34] VITALS: BP 100/66; PULSE 99; RESP 18; TEMP 37.2; O2SAT 93
[2023-04-01 05:07] LABS: Basophils # 0.1 10^3/uL (0.0-0.1); Basophils % 0.5 %; Eosinophils # 0.2 10^3/uL (0.0-0.8); Eosinophils % 1.8 %; Hematocrit 29.9 % (36-47); Lymphocytes # 1.1 10^3/uL (0.8-4.8); Lymphocytes % 11.3 %; Mean Corpuscular HGB Conc 30.1 g/dL (30-55); Mean Corpuscular Hemoglobin 24.5 pg (27-33); Mean Corpuscular Volume 81.5 fl (85-98); Mean Platelet Volume 9.9 fL (7.4-10.4); Monocytes % 10.5 %; Neutrophils # 7.28 10^3/uL (1.8-7.7); Neutrophils % 74.6 %; Nucleated Red Blood Cells % 0 %; Platelet Count 274 10^3/cmm (157-399); Red Blood Count 3.67 10^6/uL (3.85-5.65); Red Cell Distribution Width 16.7 % (12.1-15.1); White Blood Count 9.77 10^3/uL (3.29-11.43)
[2023-04-01 05:25] LABS: Anion Gap 15.4 (5-19); Blood Urea Nitrogen 36 mg/dL (8-23); Calcium 8.5 mg/dL (8.5-10.5); Carbon Dioxide 23 mmol/L (22-29); Chloride 100 mmol/L (98-107); Glucose 179 mg/dL (65-115); Osmolality Calculated 291 mOsm/kg (285-295); Potassium 4.4 mmol/L (3.5-5.1); Sodium 134 mmol/L (136-145)
[2023-04-01 06:30] LABS: Glucose Point of Care 187 mg/dL (70-110)
[2023-04-01 07:45] VITALS: BP 103/65; PULSE 101; RESP 16; O2SAT 91
[2023-04-01] MEDS: escitalopram 10 mg Tablet PO (08:20)
[2023-04-01] MEDS: amiodarone 200 mg Tablet PO (08:20)
[2023-04-01] MEDS: iron polysaccharide complex 150 mg Capsule PO (08:20)
[2023-04-01] MEDS: levothyroxine 50 mcg Tablet PO (08:20)
[2023-04-01] MEDS: docusate sodium 100 mg Capsule PO (08:20)
[2023-04-01] MEDS: sennosides-docusate Tablet 1 TAB PO (08:20)
[2023-04-01] MEDS: multivitamin therapeutic Tablet 1 TAB PO (08:20)
[2023-04-01] MEDS: calcium carb-vit d 600mg/400unit 1 Tablet 1 EACH PO (08:20)
[2023-04-01] MEDS: mupirocin oint 22 gm 1 APPLIC NASAL (08:21)
[2023-04-01] MEDS: chlorhexidine gluconate 0.12% Btl 473 mL 30 ML MUCOUS MEM (08:21)
[2023-04-01] MEDS: insulin lispro 100 unit/1 mL SUBCUT ×2 (08:25→11:41)
[2023-04-01 08:44] VITALS: PULSE 98; RESP 16; O2SAT 93
--- NOTE | 2023-04-01 08:47 | P.DS_ITS ---
Discharge Providers Date of Admission: 03/28/23 14:42 Date of Discharge: April 01, 2023 Attending Provider at Admission: Gorge Salazar MD Attending Provider at Discharge: Gorge Salazar MD Primary Care Provider: Zenaida Spencer DO Diagnoses at Discharge Discharge Diagnosis (1) Intertrochanteric fracture of left femur: Status: Acute Reason for Visit Reason for Visit: left hip fracture Hospital Course Hospital Course 88-year-old female who was admitted for management evaluation of hip fracture, she was transferred from [facility], Dr. Yin was consulted, patient went for intervention 03/29, estimated blood loss 100 mL for left intertrochanteric femur fracture intervention with femoral nail, patient did well after physical therapy, took quite a while to work with PT, she seems to have underlying dementia, pockets food sometimes, she is able to void urine, Carranza catheter has been removed, creatinine peaked at 1.8, at the time of discharge it is 1.6 her baseline creatinine seems to be around 1-1.2, I am anticipating with better p.o. intake this will improve there is no signs of obstruction. Patient clinically is dehydrated. Considering history of contraindication to anticoagulating agent we will give her Protonix twice daily along aspirin 325 mg twice daily as DVT prophylactic regimen although she does have history of A-fib but not a good candidate to be on any anticoagulating agent, hemoglobin stable around 9, at the time of discharge patient is on room air, blood pressure 103/65 m mercury, able to follow commands, Physical Exam Narrative: Currently on room air Hemodynamic stable Signs of dehydration present but improving Abdomen soft Able to follow commands S1, S2 variable Urinary Catheter Management: Carranza: Cath Placed During This Visit: no Reason for Continuing Indwelling Catheter: Required Immobilization for Trauma or Surgery or Anesthesia Discharge Data Studies Completed and Pending Completed Studies During Hospitalization Category Date Time Status XR femur LT min 2V* 69568 Routine Exams 03/28/23 15:25 Completed XR femur LT min 2V* 65096 Routine Exams 03/29/23 Completed XR femur LT min 2V* [id number] Routine Exams 03/29/23 11:44 Completed XR knee LT 1-2V 40142 Routine Exams 03/28/23 15:25 Completed XR pelvis 1-2V* [id number] Routine Exams 03/28/23 15:25 Completed Radiology Impressions Knee X-Ray 03/28/23 15:25 IMPRESSION: No acute findings. Pelvis X-Ray 03/28/23 15:25 IMPRESSION: Angulated left proximal femur intertrochanteric region fracture. Laboratory Results WBC 9.77 10^3/uL (3.29-11.43) 04/01/23 04:59 RBC 3.67 10^6/uL (3.85-5.65) L 04/01/23 04:59 Hgb 9.00 g/dL (11.27-16.99) L 04/01/23 04:59 Hct 29.9 % (36-47) L 04/01/23 04:59 MCV 81.5 fl (85-98) L 04/01/23 04:59 MCH 24.5 pg (27-33) L 04/01/23 04:59 MCHC 30.1 g/dL (30-55) 04/01/23 04:59 RDW 16.7 % (12.1-15.1) H 04/01/23 04:59 Plt Count 274 10^3/cmm (157-399) 04/01/23 04:59 MPV 9.9 fL (7.4-10.4) 04/01/23 04:59 Neut % (Auto) 74.6 % 04/01/23 04:59 Lymph % (Auto) 11.3 % 04/01/23 04:59 [place] % (Auto) 10.5 % 04/01/23 04:59 Eos % (Auto) 1.8 % 04/01/23 04:59 Baso % (Auto) 0.5 % 04/01/23 04:59 Neut # (Auto) 7.28 10^3/uL (1.8-7.7) 04/01/23 04:59 Lymph # (Auto) 1.1 10^3/uL (0.8-4.8) 04/01/23 04:59 [place] # (Auto) 1.0 10^3/uL (0.2-0.9) H 04/01/23 04:59 Eos # (Auto) 0.2 10^3/uL (0.0-0.8) 04/01/23 04:59 Baso # (Auto) 0.1 10^3/uL (0.0-0.1) 04/01/23 04:59 Nucleated RBC % (auto) 0 % 04/01/23 04:59 Nucleated RBCs # 0.0 /100WBC 04/01/23 04:59 PT 14.50 SECONDS (12.1-14.9) 03/28/23 15:47 INR 1.10 (0.8-1.2) 03/28/23 15:47 Sodium 134 mmol/L (136-145) L 04/01/23 04:59 Potassium 4.4 mmol/L (3.5-5.1) 04/01/23 04:59 Chloride 100 mmol/L (98-107) 04/01/23 04:59 Carbon Dioxide 23 mmol/L (22-29) 04/01/23 04:59 Anion Gap 15.4 (5-19) 04/01/23 04:59 BUN 36 mg/dL (8-23) H 04/01/23 04:59 Creatinine 1.6 mg/dL (0.5-0.9) H 04/01/23 04:59 GFR Calculation Not Reportable 04/01/23 04:59 Glucose 179 mg/dL (65-115) H 04/01/23 04:59 POC Glucose 187 mg/dL (70-110) H 04/01/23 06:16 Calculated Osmolality 291 mOsm/kg (285-295) 04/01/23 04:59 Calcium 8.5 mg/dL (8.5-10.5) 04/01/23 04:59 Magnesium 1.9 mg/dL (1.7-2.3) 03/31/23 05:19 Iron 23 ug/dL (37-145) L 03/29/23 05:29 TIBC 273 mcg/dl 03/29/23 05:29 % Saturation 8.4 % (20-50) L 03/29/23 05:29 Unsat Iron Binding 250 ug/dL (112-347) 03/29/23 05:29 Total Bilirubin 0.7 mg/dL (0.15-1.2) 03/28/23 15:47 AST 63 U/L (0-32) H 03/28/23 15:47 ALT 24 U/L (0-33) 03/28/23 15:47 Alkaline Phosphatase 105 U/L (35-105) 03/28/23 15:47 Total Protein 6.3 g/dL (6.6-8.7) L 03/28/23 15:47 Albumin 3.2 g/dL (3.5-5.2) L 03/28/23 15:47 Globulin 3.1 g/dL (1.3-4.6) 03/28/23 15:47 TSH 1.12 uIU/mL (0.27-4.20) 03/30/23 05:20 SARS-CoV-2 Ag (Rapid) negative (Negative) 03/31/23 15:38 Blood Type O Positive 03/28/23 15:47 Rho(D) Type Positive 03/28/23 15:47 Antibody Screen Negative 03/28/23 15:47 Vitals Last Vital Signs Temp 98.9 F 04/01/23 04:34 Pulse 98 04/01/23 08:44 Resp 16 04/01/23 08:44 BP 103/65 04/01/23 07:45 Pulse Ox 93 04/01/23 08:44 O2 Del Method Room Air 04/01/23 08:44 O2 Flow Rate 2 03/29/23 18:03 Discharge Plan Discharge Patient Disposition: Xfer Other Condition: Stable Prescriptions: New Stool Softener-Laxative 8.6-50 mg Tablet 1 tab PO DAILY Qty: 12 0RF oxycodone 5 mg Tablet 5 mg PO Q6H PRN (Reason: Mod to severe pain , 2nd line) Qty: 10 0RF omeprazole 40 mg capsule,delayed release(DR/EC) 40 mg PO BID Qty: 60 0RF aspirin 325 mg tablet 325 mg PO BID Qty: 40 0RF Continued simethicone [Gas Relief (simethicone)] 125 mg tablet,chewable 250 - 500 mg PO DAILY PRN (Reason: gas pain) levothyroxine 50 mcg tablet 50 mcg PO DAILY@0630 loperamide [Anti-Diarrheal (loperamide)] 2 mg tablet 4 mg PO Q4H PRN (Reason: Diarrhea) guaifenesin 100 mg/5 mL liquid 200 mg PO Q4H PRN (Reason: Cough) diclofenac sodium [Arthritis Pain (diclofenac)] 1 % gel See Rx Instructions .ROUTE .COMPLEX Rx Instructions: apply topically to affected area at bedtime as needed for pain nystatin 100,000 unit/gram powder 1 applic topical DAILY PRN (Reason: unknown) Rx Instructions: apply to in/under skin folds amiodarone 200 mg tablet 200 mg PO DAILY Qty: 90 3RF Rx Instructions: @08:00 atorvastatin 40 mg tablet 40 mg PO DAILY Qty: 90 3RF Rx Instructions: @20:00 albuterol sulfate 90 mcg/actuation HFA aerosol inhaler 2 puff inhalation TID@06,,20 escitalopram oxalate 10 mg tablet 10 mg PO DAILY@08 acetaminophen 500 mg Tablet 500 - 1,000 mg PO Q4H PRN (Reason: Pain) Mucinex DM 30-600 mg Tablet Extended Release 12 Hr 1 tab PO BEDTIME@20 Held metoprolol tartrate 25 mg tablet 25 mg PO BID@, Hold Instructions: Resume on 04/05/23. Rx Instructions: hold for sbp less than 100 dbp less than 60 or hr less than 60 Discontinued famotidine 20 mg tablet 20 mg PO BID@,20 Discharge Orders: Discharge Order (Routine); Ordered 04/01/23 Ordered By: Gorge Salazar Referrals: Lee Yin DO [Physician] - 04/13/23 8:00 am Discharge Diet: Advance as tolerated Discharge Activity: Limit activity as instructed Activity Restrictions/Additional Instructions: Orthopedic discharge instructions: Weightbearing as tolerated to the operative extremity Ice as needed for pain and swelling Encourage knee and hip range of motion as tolerated PT/OT Take pain medication as prescribed Take antinausea medication as needed Supplement with Citracal vitamin D for bone health and healing Take Colace as needed for constipation Leave Silverlon dressings on and in place for 7 days. After this they may be removed you may shower/rinse incisions with warm soapy water, pat dry redress with a dry dressing. Okay to sponge bath/shower with [place] dressings as they should be waterproof however if they do get saturated or wet please take these off dry the incision and redressed with a new dry sterile bandage. Follow-up in the orthopedic office with Dr. Yin in 2 weeks for repeat x-rays and incision check/staple removal Contact the office for any questions or concerns (i.e. increasing redness and drainage around the incision, fevers, or chills, or severe worsening in pain/c hange in symptoms Discharge Attestations Time Spent in Discharge Care*: greater than 30 min Status at Discharge: Cognitive status at discharge: cognitively intact , Behavioral status at discharge: cooperative , Quality Metrics Clinical Quality Measures [ No reported AMI, CVA or VTE this stay] Coding Level of Care Code Acute Code for Chg Fwd Diagnoses Intertrochanteric fracture of left femur S72.142A
[2023-04-01 11:18] VITALS: BP 119/76; PULSE 112; RESP 16; TEMP 37; O2SAT 95
[2023-04-01 11:32] LABS: Glucose Point of Care 244 mg/dL (70-110)
[2023-04-01 12:01] VITALS: BP 119/76; PULSE 112; RESP 16; TEMP 37; O2SAT 95
== END 2023-04-01 13:12 | disposition swing bed (61) | DRG 481 ==
PROVIDERS: Student in an Organized Health Care Education/Training Program; Admitting Provider Internal Medicine; PCP Family Medicine; Visit Provider Internal Medicine
PROC: 0QH736Z Insertion of Intramedullary Internal Fixation Device into Left Upper Femur, Percutaneous Approach (ICD-10-PCS; CPT 27245; principal; 2023-03-29 07:00)
DX: S72.142A Displaced intertrochanteric fracture of left femur, initial encounter for closed fracture (principal); D62 Acute posthemorrhagic anemia; N17.9 Acute kidney failure, unspecified; W18.30XA Fall on same level, unspecified, initial encounter; F03.90 Unspecified dementia, unspecified severity, without behavioral disturbance, psychotic disturbance, mood disturbance, and anxiety; I48.0 Paroxysmal atrial fibrillation; Z86.73 Personal history of transient ischemic attack (TIA), and cerebral infarction without residual deficits; E11.22 Type 2 diabetes mellitus with diabetic chronic kidney disease; I12.9 Hypertensive chronic kidney disease with stage 1 through stage 4 chronic kidney disease, or unspecified chronic kidney disease; N18.9 Chronic kidney disease, unspecified; Z87.440 Personal history of urinary (tract) infections; I25.2 Old myocardial infarction; Z96.653 Presence of artificial knee joint, bilateral; D64.9 Anemia, unspecified
CPT/HCPCS: 36415; 36416; 51702; 72170; 73551; 73552; 73560; 76000; 80048; 80053; 82962; 83540; 83550; 83735; 84443; 85025; 85610; 86850; 86900; 87426; 92610; 96372; 97110; 97166; 97530; 97535; C1713; J0131; J0690; J1100; J1170; J1650; J1815; J1885; J2371; J2405; J2704; J3010; J7030